=== PATIENT | female | born 1955 | race Caucasian/White ===

== ENCOUNTER 2021-03-03 09:24 | Emergency (ER) | payer MEDICARE, MEDICAID, SELFPAY ==
[2021-03-03 09:45] VITALS: BP 109/63; BP 143/70; PULSE 101; PULSE 102; RESP 17; TEMP 36.4; O2SAT 96; BMI 43.4
[2021-03-03 10:32] LABS: MANUAL DIFF FLAG NO
[2021-03-03 10:34] LABS: Basophils Percent Auto 0.2 % (0-2); Eosinophils Absolute Auto 0.1 X10*3/uL (0.0-0.4); Eosinophils Percent Auto 1.1 % (0-4); Hematocrit 33.5 % (37-47); Hemoglobin 10.1 g/dl (12.0-16.0); Imm Gran Abs Auto 0.01 X10*3/uL (0.00-0.03); Imm Gran Pct Auto 0.2 % (0.0-0.4); Lymphocytes Absolute Auto 0.8 X10*3/uL (1.2-4.9); Lymphocytes Percent Auto 16.3 % (20-40); Mean Corpuscular HGB Conc 30.1 g/dl (31.0-35.0); Mean Corpuscular Hemoglobin 30.8 pg (27.0-33.0); Mean Corpuscular Volume 102.1 fL (80-98); Mean Platelet Volume 8.8 fL (9.4-12.3); Monocytes Absolute Auto 0.3 X10*3/uL (0.1-1.2); Monocytes Percent Auto 7.1 % (2-11); Neutrophils Absolute Auto 3.5 X10*3/uL (2.0-8.3); Neutrophils Percent Auto 75.1 % (45-73); Platelet Count 103 X10*3/uL (160-400); Red Blood Count 3.28 X10*6/uL (4.20-5.50); White Blood Count 4.7 X10*3/uL (4.8-10.8)
[2021-03-03 10:39] LABS: INTERNATIONAL NORM RATIO 1.2 (0.9-1.1); Prothrombin Time 13.7 SEC (10.8-13.0)
[2021-03-03 10:47] LABS: COVID-19 Test Negative (Negative)
[2021-03-03 11:07] LABS: Alanine Aminotransferase < 6 U/L (0-31); Albumin Level 3.8 g/dL (3.5-5.0); Alkaline Phosphatase 53 U/L (39-117); Anion Gap 18 (12-20); Aspartate Amino Transferase 12 U/L (5-31); Bilirubin Total 0.8 mg/dL (0.0-1.0); Blood Urea Nitrogen 47 mg/dL (9-16); Calcium 8.6 mg/dL (8.4-10.2); Carbon Dioxide 28 mmol/L (22-29); Chloride 102 mmol/L (96-108); Creatinine Clr Calc Pharmacy 8.5; Estimated Glomerular Filt Rate 6; Glucose Random 88 mg/dL (60-115); Magnesium 2.5 mg/dL (1.6-2.6); Potassium 6.5 mmol/L (3.3-5.1); Sodium 141 mmol/L (135-145); Total Protein 5.8 g/dL (6.5-8.0)
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
--- NOTE | 2021-03-03 11:19 | ECG_ITS ---
Test Reason : HIGH K Blood Pressure : / mmHG Vent. Rate : 088 BPM Atrial Rate : 088 BPM P-R Int : 202 ms QRS Dur : 110 ms QT Int : 378 ms P-R-T Axes : 057 033 036 degrees QTc Int : 457 ms Normal sinus rhythm Normal ECG No previous ECGs available Referred By: Prachi Marin Electronically Signed By:ROLAN SANDOVAL
[2021-03-03] MEDS: Albuterol Sulfate (0.083%) 2.5 MG/3 ML VIAL.NEB 10 MG INHALE (11:40)
[2021-03-03 11:42] VITALS: PULSE 98; O2SAT 94
[2021-03-03] MEDS: Sodium Polystyrene Sulfon/Sorb 15 GM/60 ML ORAL.SUSP 45 GM PO (11:55)
--- NOTE | 2021-03-03 11:59 | PC.NURSE ---
Elevated potassium and BUN/creatinine. Pt is a Friday, , Friday dialysis patient. Pt cleared from care team with bedside eval. Plan is to send the patient to [facility] from ED to receive her scheduled outpatient treatment. [facility] notified and will book transport from dialysis back to [facility]. Ambulance being booked for patient to dialysis currently. Kayexcelate and albuterol updraft given.
--- NOTE | 2021-03-03 12:41 | PC.NURSE ---
@12:26PM [facility] LEAVES WITH THIS PT TO [facility], [address] [place] [address],LAWANDA VALENTINE,[id number],
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
== END 2021-03-03 12:26 | disposition skilled nursing facility (03) ==
PROVIDERS: Physician Assistant Medical; Emergency Provider Emergency Medicine; PCP Internal Medicine
DX: R45.1 Restlessness and agitation (principal); E87.5 Hyperkalemia; N18.6 End stage renal disease; D63.1 Anemia in chronic kidney disease; I27.20 Pulmonary hypertension, unspecified; I48.91 Unspecified atrial fibrillation; Z99.2 Dependence on renal dialysis; Z20.822 Contact with and (suspected) exposure to COVID-19
CPT/HCPCS: 36415; 80053; 83735; 85025; 85610; 87635; 93005; 94640; 94644; 99283; 99285

== ENCOUNTER 2021-06-05 10:21 | Emergency (ER) | payer MEDICARE, MEDICAID, SELFPAY ==
--- NOTE | ~2021-06-05 | XR_ITS ---
EXAMINATION: XR CHEST CLINICAL INFORMATION: AMS COMPARISON: None TECHNIQUE: AP portable view of the chest was obtained. FINDINGS: There is no evidence of acute parenchymal disease, pneumothorax, or pleural effusion. Heart normal size. No evidence of pulmonary edema. There is scoliosis of the thoracic spine convex right. Vascular stent is seen within the left axilla. Partially imaged region of sclerosis seen involving the left humeral head. XR/XR chest 1V IMPRESSION: No acute disease. Sclerotic lesion within the left humeral head.
--- NOTE | ~2021-06-05 | CT_ITS ---
EXAMINATION: CT HEAD WITHOUT CONTRAST CLINICAL INFORMATION: Increased progression COMPARISON: None TECHNIQUE: Contiguous axial imaging was performed from the skull base to vertex without intravenous administration of contrast. Exam is limited due to motion artifact. This CT examination was performed using dose optimization techniques as appropriate, variously including the following: *Automated exposure control *Adjustment of mA and/or kV according to patient size (this includes techniques or standardized protocols for targeted exams where dose is matched to indication/reason for exam; i.e. extremities or head) *Use of iterative reconstruction technique DLP: 637 mGy-cm FINDINGS: There is no evidence of an extra-axial collection. There is no evidence of intra-axial or extra-axial hemorrhage. There is an old right temporoparietal infarct or area of encephalomalacia. There is ex vacuo dilatation of the right lateral ventricle. The ventricles and extra-axial CSF spaces are otherwise appropriate. There is mild nonspecific periventricular white matter disease. No mass, mass effect or acute infarct is seen. No skull fracture is seen. Visualized paranasal sinuses, mastoid air cells and middle ears are clear. CT/CT head/brain wo con IMPRESSION: Limited exam due to motion. No acute findings. 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
[2021-06-05 10:30] VITALS: BP 158/82; RESP 100; TEMP 37.3; O2SAT 98; BMI 33.0
[2021-06-05 11:26] LABS: MANUAL DIFF FLAG NO
[2021-06-05 11:27] LABS: Basophils Percent Auto 0.5 % (0-2); Eosinophils Absolute Auto 0.1 X10*3/uL (0.0-0.4); Eosinophils Percent Auto 2.9 % (0-4); Hematocrit 29.8 % (37-47); Hemoglobin 9.2 g/dl (12.0-16.0); Imm Gran Abs Auto 0.01 X10*3/uL (0.00-0.03); Imm Gran Pct Auto 0.3 % (0.0-0.4); Lymphocytes Absolute Auto 0.6 X10*3/uL (1.2-4.9); Lymphocytes Percent Auto 16.2 % (20-40); Mean Corpuscular HGB Conc 30.9 g/dl (31.0-35.0); Mean Corpuscular Hemoglobin 30.4 pg (27.0-33.0); Mean Corpuscular Volume 98.3 fL (80-98); Mean Platelet Volume 8.9 fL (9.4-12.3); Monocytes Absolute Auto 0.3 X10*3/uL (0.1-1.2); Monocytes Percent Auto 7.3 % (2-11); Neutrophils Absolute Auto 2.8 X10*3/uL (2.0-8.3); Neutrophils Percent Auto 72.8 % (45-73); Platelet Count 103 X10*3/uL (160-400); Red Blood Count 3.03 X10*6/uL (4.20-5.50); White Blood Count 3.8 X10*3/uL (4.8-10.8)
[2021-06-05 11:42] LABS: COVID-19 Test Negative (Negative)
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
[2021-06-05 11:59] LABS: Alanine Aminotransferase 11 U/L (0-31); Albumin Level 3.8 g/dL (3.5-5.0); Alkaline Phosphatase 54 U/L (39-117); Anion Gap 15 (12-20); Aspartate Amino Transferase 12 U/L (5-31); Bilirubin Direct 0.2 mg/dL (0.0-0.5); Bilirubin Total 0.5 mg/dL (0.0-1.0); Blood Urea Nitrogen 62 mg/dL (9-16); Calcium 8.7 mg/dL (8.4-10.2); Carbon Dioxide 28 mmol/L (22-29); Chloride 106 mmol/L (96-108); Creatinine Clr Calc Pharmacy 7.3; Estimated Glomerular Filt Rate 5; Glucose Random 87 mg/dL (60-115); Magnesium 2.2 mg/dL (1.6-2.6); Sodium 143 mmol/L (135-145); Total Protein 5.8 g/dL (6.5-8.0)
--- NOTE | 2021-06-05 12:11 | ECG_ITS ---
Test Reason : AMS Blood Pressure : / mmHG Vent. Rate : 090 BPM Atrial Rate : 090 BPM P-R Int : 186 ms QRS Dur : 108 ms QT Int : 376 ms P-R-T Axes : 056 020 038 degrees QTc Int : 459 ms Normal sinus rhythm Incomplete right bundle branch block Borderline ECG When compared with ECG of 03-MAR-2021 11:51, No significant change was found Referred By: Kelly Guajardo Electronically Signed By:DA CARDENAS
[2021-06-05 12:24] VITALS: PULSE 101
[2021-06-05] MEDS: Albuterol Sulfate (0.083%) 2.5 MG/3 ML VIAL.NEB 5 MG INHALE (12:24)
[2021-06-05 12:38] LABS: Appearance Urine CLOUDY; Color Urine YELLOW; Glucose Urine UA NEG (NEG); Nitrite Urine POS (NEG); UACC Culture Trigger YES; Urine Blood 1+ (NEG); Urine Ketones NEG (NEG); Urine Protein 2+ MG/DL (NEG-TRACE)
[2021-06-05 12:39] LABS: Leukocyte Esterase Urine 3+ (NEG)
[2021-06-05] MEDS: Sodium Polystyrene Sulfon/Sorb 15 GM/60 ML ORAL.SUSP 45 GM PO (12:50)
[2021-06-05 12:51] LABS: Bacteria Urine 3+ /LPF; Mucus Urine 2+ /LPF; Squamous Epithelial Cell Urine 2+ /LPF; WBC Urine TNTC /HPF (0-4)
[2021-06-05] MEDS: cefTRIAXone sodium 1 GM in 0.9 % Sodium Chloride 50 ML IV (15:18)
--- NOTE | 2021-06-05 16:02 | MHC.CM.ED ---
Received case management from Kelly LUBIN. Patient is from [facility]. Came to ER under a section 12 for AMS. Patient found to have UTI. Patient is due to HD today at [facility] in [place]. Spoke with Monica at [facility]. They will not be able to dialyze until tomorrow 06/06. She would need to arrive at 610am. T/W reached out to [facility] aurea Wild. Torri is going to see if they can arrange transportation for HD for tomorrow. Continue to monitor for d/c needs.
[2021-06-05] MEDS: Sodium Polystyrene Sulfon/Sorb 15 GM/60 ML ORAL.SUSP 30 GM PO (18:45)
--- NOTE | 2021-06-05 19:33 | MHC.CM.ED ---
Addendum entered by Katya Escobar 06/05/21 21:16: Received a confirmation from [facility]. Will transport in am. Original Note: Pt to remain overnight in the ED with d/c via ambulance to [facility] at 5:30am on 06/06. Has appointment for dialysis at 6:10am. Pt aware. [facility] of was unable to arrange transportation from their facility to dialysis, but they will arrange transportation from [facility] to [facility] after dialysis completed. RN aware. Med Nec on chart. CM to follow for d/c needs
[2021-06-05 20:42] VITALS: BP 148/70; PULSE 88; RESP 16; O2SAT 80
[2021-06-05 21:25] VITALS: BP 171/88; PULSE 91; RESP 18; O2SAT 77
[2021-06-05] MEDS: Melatonin 3 MG TABLET 6 MG PO (22:24)
[2021-06-06 01:03] VITALS: BP 141/63; PULSE 78; RESP 12; O2SAT 95
[2021-06-06 05:13] VITALS: BP 152/79; PULSE 96; RESP 15; O2SAT 98
== END 2021-06-06 05:23 | disposition home or self-care (01) ==
PROVIDERS: Physician Assistant; Emergency Provider Emergency Medicine Emergency Medical Services; PCP Internal Medicine
DX: N39.0 Urinary tract infection, site not specified (principal); F03.91 Unspecified dementia, unspecified severity, with behavioral disturbance; E87.5 Hyperkalemia; I10 Essential (primary) hypertension; F33.1 Major depressive disorder, recurrent, moderate; Z20.822 Contact with and (suspected) exposure to COVID-19; Z79.899 Other long term (current) drug therapy
CPT/HCPCS: 36415; 70450; 71045; 80048; 80076; 81001; 83735; 85025; 87086; 87635; 93005; 94640; 96365; 99284; J0696

== ENCOUNTER 2021-08-26 09:37 | Emergency (ER) | payer MEDICARE, MEDICAID, SELFPAY ==
--- NOTE | ~2021-08-26 | XR_ITS ---
EXAMINATION: XR HAND, RIGHT CLINICAL INFORMATION: Right hand pain. COMPARISON: None TECHNIQUE: PA, lateral, and oblique views of the right hand. FINDINGS: There is an acute, mildly displaced oblique fracture of the proximal diaphysis of the fifth metacarpal. The remainder the digits are intact. The carpal bones are normally aligned. The distal radius and ulna are intact. There is mild soft tissue swelling. XR/XR hand RT 2V IMPRESSION: Acute, mildly displaced fracture of the fifth metacarpal with mild soft tissue swelling.
--- NOTE | ~2021-08-26 | XR_ITS ---
EXAMINATION: XR HAND, RIGHT CLINICAL INFORMATION: Post reduction COMPARISON: Previous x-ray from earlier the same day TECHNIQUE: PA, lateral, and oblique views of the right hand. FINDINGS: There is a displaced fracture of the proximal shaft of the fifth metacarpal bone. Alignment does not appear appreciably changed from earlier exam. No other fracture is seen. The joint spaces are normal. There is an overlying splint. XR/XR hand RT 2V IMPRESSION: No change in alignment of the fracture of the proximal shaft of the right fifth metacarpal bone.
[2021-08-26 09:43] VITALS: BP 118/79; PULSE 85
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
[2021-08-26 09:50] VITALS: BP 118/50; PULSE 86; RESP 18; TEMP 36.7; O2SAT 97; BMI 35.4
--- NOTE | 2021-08-26 11:41 | PC.NURSE ---
REPORT GIVEN TO RN AT [facility]. PT WILL BE RETURNING VIA AMBULANCE.
== END 2021-08-26 13:28 | disposition skilled nursing facility (03) ==
PROVIDERS: Emergency Provider Emergency Medicine; PCP Internal Medicine
DX: S62.306A Unspecified fracture of fifth metacarpal bone, right hand, initial encounter for closed fracture (principal); W22.09XA Striking against other stationary object, initial encounter; Y93.89 Activity, other specified; Y92.122 Bedroom in nursing home as the place of occurrence of the external cause; Y99.9 Unspecified external cause status
CPT/HCPCS: 26605; 73120; 99284

== ENCOUNTER 2021-09-12 08:14 | Outpatient (REF) | payer MEDICARE, MEDICAID, SELFPAY ==
--- NOTE | ~2021-09-12 | XR_ITS ---
EXAMINATION: XR HAND, RIGHT CLINICAL INFORMATION: Pain. History fracture. Follow-up. COMPARISON: Right hand radiographs 08/26/2021 x 2 exams. TECHNIQUE: Right hand is imaged in 3 views. FINDINGS: There is motion on the oblique view and mild motion AP view. There is known oblique fracture proximal shaft fifth metacarpal. Distal fracture fragment is displaced laterally by 3/4 cortical bone diameter similar to prior studies. There is no new fracture or dislocation or destructive process. No visible callus formation at this time. Slight negative ulnar variance stable. XR/XR hand RT min 3V IMPRESSION: Fracture proximal shaft fifth metacarpal without significant change in alignment.
== END 2021-09-12 08:15 | disposition home or self-care (01) ==
LOC: HO.HOSX 08:14
PROVIDERS: Visit Provider Physician Assistant
DX: M79.641 Pain in right hand (principal); S62.316A Displaced fracture of base of fifth metacarpal bone, right hand, initial encounter for closed fracture; W22.03XA Walked into furniture, initial encounter; Y93.89 Activity, other specified; Y92.128 Other place in nursing home as the place of occurrence of the external cause; Y99.8 Other external cause status; N18.6 End stage renal disease; I48.91 Unspecified atrial fibrillation; Z99.2 Dependence on renal dialysis; Z79.82 Long term (current) use of aspirin; Z99.81 Dependence on supplemental oxygen
CPT/HCPCS: 73130; 99202

== ENCOUNTER 2021-09-20 06:08 | Day surgery (SDC) | payer MEDICARE, MEDICAID, SELFPAY ==
--- NOTE | 2021-09-19 09:31 | P.CONAN_ITS ---
Documented by User: Karlene Garland NP 09/19/21 09:34 HPI - Anesthesia Eval Consult details Narrative: 65yo F for Right Closed vs Open 5th Metacarpal ORIF ESRD with HD Jelly [facility] resident [facility] Active Problems Active Problems: All Active Problems (Updated 09/12/21 @ 21:05 by Rom Grijalva PA-C) Closed fracture of 5th metacarpal (Acute) Past Medical History Medical History Acute pneumothorax Afib Aggressive behavior Anemia Anemia, chronic renal failure Asthma AV fistula Bipolar 1 disorder Depression Dysphagia End stage chronic kidney disease GERD without esophagitis HTN (hypertension) Hyperlipidemia Hypothyroidism Interstitial pulmonary disease Osteoporosis Pleural effusion Pulmonary hypertension Pyelonephritis Social History Social History Patient Tobacco Use Status: Never used Tobacco Use of substances other than those prescribed or required for medical reasons: No Are you DNR?: No Advance Directives: No Advance Directives Information Provided: Yes Advance Directives Date on File: 06/05/21 Patient : No Meds Allergies Allergy/AdvReac Type Severity Reaction Status Date / Time adhesive tape Allergy Unknown Verified 09/20/21 06:31 Penicillins [PCN] Allergy Unknown Verified 09/20/21 06:31 Sulfa (Sulfonamide Allergy Unknown Verified 09/20/21 06:31 Antibiotics) Home Medications Medication Instructions Recorded Confirmed Last Taken Type aripiprazole 2 mg tablet 1 tab PO DAILY 06/05/21 09/12/21 Unknown History clonazepam 1 mg tablet 1 tab PO BEDTIME PRN 06/05/21 09/12/21 Unknown History gabapentin 100 mg capsule 1 cap PO TID 06/05/21 09/12/21 Unknown History levothyroxine 100 mcg tablet 1 tab PO DAILY 06/05/21 09/12/21 Unknown History quetiapine 100 mg tablet 1 tab PO BEDTIME 06/05/21 09/12/21 Unknown History sevelamer carbonate 800 mg tablet 3 tab PO TID 06/05/21 09/12/21 Unknown History (Renvela) trazodone 50 mg tablet 1 tab PO BEDTIME 06/05/21 09/12/21 Unknown History midodrine 5 mg tablet 5 mg PO 5XD 06/06/21 09/12/21 Unknown History acetaminophen 325 mg capsule 325 mg PO QID PRN 09/12/21 Unknown History aspirin 81 mg tablet,delayed 81 mg PO DAILY 09/12/21 09/19/21 History release bisacodyl 5 mg tablet,delayed 5 mg PO BEDTIME 09/12/21 Unknown History release diclofenac sodium 1 % topical gel 2 g TOPICAL QID 09/12/21 Unknown History guaifenesin 200 mg/5 mL oral liquid 200 mg PO Q4H PRN 09/12/21 Unknown History lidocaine 3.75 % topical cream 1 appl TOPICAL BID 09/12/21 Unknown History lidocaine 5 % topical patch 1 patch TOPICAL DAILY 09/12/21 Unknown History (Lidoderm) naloxone 4 mg/actuation nasal 4 mg INTRANASAL Q3M PRN 09/12/21 Unknown History spray (Narcan) ondansetron HCl 4 mg tablet 4 mg PO Q8H 09/12/21 Unknown History (Zofran) quetiapine 25 mg tablet (Seroquel) 25 mg PO BEDTIME 09/12/21 Unknown History sennosides 8.6 mg capsule (senna) 8.6 mg PO BEDTIME 09/12/21 Unknown History sevelamer carbonate 0.8 gram oral 0.8 g PO TID 09/12/21 Unknown History powder packet (Renvela) Exam Exam Date and Time: September 19, 2021 0931 Pertinent Lab Results Pertinent Lab Results: Laboratory Tests 06/05/21 11:21 WBC 3.8 L Hgb 9.2 L Hct 29.8 L Plt Count 103 L Narrative Narrative: EKG 05/2021 Vent. Rate : 090 BPM ? ? Atrial Rate : 090 BPM ?? P-R Int : 186 ms? QRS Dur : 108 ms ? ? QT Int : 376 ms ? ? ? P-R-T Axes : 056 020 038 degrees ?? QTc Int : 459 ms ? Normal sinus rhythm Incomplete right bundle branch block Borderline ECG When compared with ECG of 03-MAR-2021 11:51, No significant change was found Assessment and Plan Assessment Anesthesia Assessment: Chart Reviewed Documented by User: Jodi Hinton MD 09/20/21 07:32 [facility] Past Medical History Medical History Acute pneumothorax Afib Aggressive behavior Anemia Anemia, chronic renal failure Asthma AV fistula Bipolar 1 disorder Depression Dysphagia End stage chronic kidney disease GERD without esophagitis HTN (hypertension) Hyperlipidemia Hypothyroidism Interstitial pulmonary disease Osteoporosis Pleural effusion Pulmonary hypertension Pyelonephritis Functional capacity: independent ambulation Patient : No Family History Family history of problems with anesthesia: No Surgical History History of Problems with Anesthesia: No Social History Social History Patient Tobacco Use Status: Never used Tobacco Use of substances other than those prescribed or required for medical reasons: No Are you DNR?: No Advance Directives: No Advance Directives Information Provided: Yes Advance Directives Date on File: 06/05/21 Patient : No Meds Allergies Allergy/AdvReac Type Severity Reaction Status Date / Time adhesive tape Allergy Unknown Verified 09/20/21 06:31 Penicillins [PCN] Allergy Unknown Verified 09/20/21 06:31 Sulfa (Sulfonamide Allergy Unknown Verified 09/20/21 06:31 Antibiotics) Home Medications Medication Instructions Recorded Confirmed Last Taken Type aripiprazole 2 mg tablet 1 tab PO DAILY 06/05/21 09/12/21 Unknown History clonazepam 1 mg tablet 1 tab PO BEDTIME PRN 06/05/21 09/12/21 Unknown History gabapentin 100 mg capsule 1 cap PO TID 06/05/21 09/12/21 Unknown History levothyroxine 100 mcg tablet 1 tab PO DAILY 06/05/21 09/12/21 Unknown History quetiapine 100 mg tablet 1 tab PO BEDTIME 06/05/21 09/12/21 Unknown History sevelamer carbonate 800 mg tablet 3 tab PO TID 06/05/21 09/12/21 Unknown History (Renvela) trazodone 50 mg tablet 1 tab PO BEDTIME 06/05/21 09/12/21 Unknown History midodrine 5 mg tablet 5 mg PO 5XD 06/06/21 09/12/21 Unknown History acetaminophen 325 mg capsule 325 mg PO QID PRN 09/12/21 Unknown History aspirin 81 mg tablet,delayed 81 mg PO DAILY 09/12/21 09/19/21 History release bisacodyl 5 mg tablet,delayed 5 mg PO BEDTIME 09/12/21 Unknown History release diclofenac sodium 1 % topical gel 2 g TOPICAL QID 09/12/21 Unknown History guaifenesin 200 mg/5 mL oral liquid 200 mg PO Q4H PRN 09/12/21 Unknown History lidocaine 3.75 % topical cream 1 appl TOPICAL BID 09/12/21 Unknown History lidocaine 5 % topical patch 1 patch TOPICAL DAILY 09/12/21 Unknown History (Lidoderm) naloxone 4 mg/actuation nasal 4 mg INTRANASAL Q3M PRN 09/12/21 Unknown History spray (Narcan) ondansetron HCl 4 mg tablet 4 mg PO Q8H 09/12/21 Unknown History (Zofran) quetiapine 25 mg tablet (Seroquel) 25 mg PO BEDTIME 09/12/21 Unknown History sennosides 8.6 mg capsule (senna) 8.6 mg PO BEDTIME 09/12/21 Unknown History sevelamer carbonate 0.8 gram oral 0.8 g PO TID 09/12/21 Unknown History powder packet (Renvela) Exam Airway Mallampati Class: III TM Dist: >3cm Neck ROM: Full Loose/Missing/Broken Teeth: Yes, Upper and Lower Heart: RRR Lungs: CTA Assessment and Plan Final Anesthetic Review Family History of Problems with Anesthesia: No History of Problems with Anesthesia: No ASA Class: III Final Preanesthetic Review: No Changes in Pt Med Stat, Meds/Allgs Chart Reviewed, Consent Obtained/Reviewed and Anes Risks/Benef Reviewed Patient Risk: Intermediate Procedure Risk: Low Anesthetic Plan Anesthetic Plan: GA Disposition: Standard PACU
--- NOTE | ~2021-09-20 | FL_ITS ---
EXAMINATION: XR FLUOROSCOPY WITH IMAGES CLINICAL INFORMATION: Fracture proximal shaft fifth metacarpal COMPARISON: Radiographs right hand 09/12/2021, 08/26/2021 TECHNIQUE: Fluoroscopy performed by Dr. Johnna Card. Fluoroscopy time: 35 seconds DAP: [id number] Images: 5 FINDINGS: The proximal fifth metacarpal shaft fracture is reduced with single metallic pin through long axis. Hardware intact. Mild lateral displacement distal fragment similar to prior imaging. FL/FL guidance in OR IMPRESSION: Status post reduction fifth metacarpal fracture. Hardware intact.
[2021-09-20 06:47] VITALS: BP 109/73; PULSE 87; RESP 20; TEMP 36.8; O2SAT 100; BMI 33.4
[2021-09-20 06:51] LABS: Anion Gap 16 (12-20); Carbon Dioxide 29 mmol/L (22-29); Chloride 103 mmol/L (96-108); Potassium 5.4 mmol/L (3.3-5.1); Sodium 143 mmol/L (135-145)
--- NOTE | 2021-09-20 07:55 | MHC.SHP ---
Pre-Procedural Eval Section A Date of Service: 09/20/21 The patient is an INPATIENT: No Changes since office visit: No Cold of Flu in the past 2 weeks, No New Medical Problems, No Changes in Medication and No Patient answered all questions The History & Physical has been completed within 30 days and I have reviewed it.: Yes Section B Chief Complaint: fx of metacarpal bone Allergies: Allergies Allergy/AdvReac Type Severity Reaction Status Date / Time adhesive tape Allergy Unknown Verified 09/20/21 06:31 Penicillins [PCN] Allergy Unknown Verified 09/20/21 06:31 Sulfa (Sulfonamide Allergy Unknown Verified 09/20/21 06:31 Antibiotics) Plan I have reviewed the history and physical and performed a pertinent physical examination on my patient. No changes have occurred unless specified.
--- NOTE | 2021-09-20 07:56 | P.OP_ITS ---
Operative Note Operative Note Date of Service: 09/20/21 Narrative: Operative Note Narrative: Preop diagnosis: 1. Right 5th Metacarpal shaft fracture Postop diagnosis: Same Procedure: 1. right 5th Metacarpal fracture closed reduction percutaneous pinning 2. Ulnar nerve block Surgeon: Johnna Card MD Anesthesia: General Findings: Metacarpal fracture Implants: 0.062 K-wires times 1 Tourniquet time: None EBL: Minimal Specimen: None Drains: None Complications: None Disposition: Brought to the recovery room in stable condition Plan: Follow-up in 10-14 days for a wound check, postop radiographs and for placement in a short-arm cast or splint Anticipate K-wire removal in 4 weeks based on interval bony healing Educate the patient that full fracture healing anticipated in approximately 8-12 weeks. Indications: The patient is 65 years old with a right 5th proximal metacarpal shaft fracture that is now about 3 weeks post injury . The risks and benefits of operative treatment, including but not limited to risk of damage to blood vessels, nerves, tendons, infection, recurrence, delayed or nonunion of fracture, persistent pain or numbness, incomplete resolution of preoperative symptoms, or need for further surgery were discussed with the patient and they wished to proceed with surgery. Procedure: Once consent was obtained patient was brought back to the operating suite and placed in the operating table in a supine position. . Perioperative antibiotics and general anesthesia was administered by the anesthesia team. A tourniquet was applied to the proximal aspect of the right upper extremity and the limb was prepped and draped in a standard surgical fashion. Tourniquet was not inflated during the case. an ulnar nerve block was performed at the beginning of the case to help facilitate pain control during the procedure and less in the need for her anesthesia medications. This was done by infiltrating about the ulnar nerve at the wrist with some 1% lidocaine a with epinephrine. The FluoroScan was used during the case to assist with our fracture reduction and placement of all implants. A closed reduction was performed on the patient's Right 5th metacarpal shaft fracture. I placed a single 0.062 K- wire retrograde through the head of the left 5th metacarpal extending proximally across the fracture site to the base of the metacarpal. . Fracture alignment was assessed for both angular and rotational malalignment. Once satisfied with our fracture reduction and implant placement, the K-wires were bent and cut short and pin caps applied. Final fluoroscopic images were then obtained. The wounds were copiously irrigated with normal saline. . A Sterile dressing and short volar splint was applied. The patient appears to have tolerated the procedure well and with no complications. All digits were well vascularized at the conclusion of the case.
--- NOTE | 2021-09-20 07:56 | PC.NURSE ---
Patient brought to [facility] in wheelchair by facility. Patient not on O2 and found to be 88%, placed on 2 L nc, facility notified & questioned on code status, height & weight, and allergy reactions. Reactions unknown per facility. Patient also stated I got COVID tested yesterday unable to state why, enies cough, congestion any other symptoms. Facility called again to get COVID results & reason for testing, facility not sure how to get the results and states the residents get tested every 3 days because staff had been positive so it policy now. Per Leroy, since patient asymptomatic can proceed without swab DOS. Consents obtained by telephone, HCP Julisa May d/t patient not being oriented.
[2021-09-20 09:05] VITALS: BP 135/68; PULSE 85; RESP 16; TEMP 36.9; O2SAT 95
[2021-09-20 09:10] VITALS: BP 128/59; PULSE 86; RESP 16; O2SAT 97
[2021-09-20 09:15] VITALS: BP 132/75; PULSE 86; RESP 18; TEMP 36.5; O2SAT 97
[2021-09-20 09:30] VITALS: BP 115/41; PULSE 86; RESP 16; TEMP 36.4; O2SAT 98
[2021-09-20 09:43] VITALS: BP 126/61; PULSE 75; RESP 16; TEMP 36.4; O2SAT 99
--- NOTE | 2021-09-20 13:27 | HO.POSTANES ---
Post Anesthesia Evaluation Post Anesthesia Evaluation Vital Signs: Vital Signs Temp Pulse Resp BP Pulse Ox 09/20/21 09:43 97.6 F 75 16 126/61 99 09/20/21 09:30 97.6 F 86 16 115/41 L 98 09/20/21 09:15 97.7 F 86 18 132/75 97 09/20/21 09:10 86 16 128/59 L 97 09/20/21 09:05 98.5 F 85 16 135/68 95 09/20/21 06:47 98.3 F 87 20 109/73 100 Anesthesia: General LMA Mental Status: Awake Pain Control: Satisfactory Nausea/Vomiting: None Hydration: Adequate Anesthesia-Related Issues: No Anes. Related Issues
== END 2021-09-20 10:00 | disposition home or self-care (01) ==
PROVIDERS: Nurse Practitioner; PCP Internal Medicine; Visit Provider Orthopaedic Surgery
PROC: (CPT 26615; principal; 2021-09-20 07:30)
DX: S62.326A Displaced fracture of shaft of fifth metacarpal bone, right hand, initial encounter for closed fracture (principal); M79.641 Pain in right hand; W22.8XXA Striking against or struck by other objects, initial encounter; Y93.89 Activity, other specified; Y92.9 Unspecified place or not applicable; Y99.8 Other external cause status; I48.91 Unspecified atrial fibrillation; F91.8 Other conduct disorders; R25.1 Tremor, unspecified; I12.0 Hypertensive chronic kidney disease with stage 5 chronic kidney disease or end stage renal disease; N18.6 End stage renal disease; D63.1 Anemia in chronic kidney disease; Z99.2 Dependence on renal dialysis; Z99.81 Dependence on supplemental oxygen; Z79.82 Long term (current) use of aspirin; Z79.899 Other long term (current) drug therapy
CPT/HCPCS: 26608; 36415; 80051; J0690; J2405; J3010

== ENCOUNTER 2021-10-03 08:32 | Outpatient (REF) | payer MEDICARE, MEDICAID, SELFPAY | END 2021-10-03 08:33 | disposition home or self-care (01) | LOC: HO.HOSX 08:32 | PROVIDERS: Visit Provider Orthopaedic Surgery | DX: Z13.89 Encounter for screening for other disorder (principal) ==

== ENCOUNTER 2021-10-07 17:18 | Emergency (ER) | payer MEDICARE, MEDICAID, SELFPAY ==
--- NOTE | ~2021-10-07 | CT_ITS ---
EXAMINATION: CT HEAD WITHOUT CONTRAST CLINICAL INFORMATION: Dysarthria. Question CVA COMPARISON: 06/05/2021 TECHNIQUE: Contiguous axial imaging was performed from the skull base to vertex without intravenous administration of contrast. This CT examination was performed using dose optimization techniques as appropriate, variously including the following: *Automated exposure control *Adjustment of mA and/or kV according to patient size (this includes techniques or standardized protocols for targeted exams where dose is matched to indication/reason for exam; i.e. extremities or head) *Use of iterative reconstruction technique DLP: 647 mGy-cm FINDINGS: Chronic right temporoparietal encephalomalacia again seen. Patchy periventricular and subcortical white matter hypodensity is similar to the prior study as well. No new loss of quiros-white differentiation. No acute intracranial hemorrhage. No mass effect or midline shift. The ventricles and sulci are similar in configuration to the prior study with persistent ex vacuo dilation of the right lateral ventricle. No skull fracture. No acute sinusitis. Globes and orbits are normal. CT/CT head/brain wo con IMPRESSION: No acute intracranial pathology. No significant change from prior study. MRI would be more sensitive to identify findings of subtle acute ischemia along the margins of the encephalomalacia.
[2021-10-07 17:30] VITALS: BP 116/71; BP 136/76; PULSE 84; PULSE 90; RESP 17; TEMP 36.8; O2SAT 97; O2SAT 99; BMI 26.8
--- NOTE | 2021-10-07 17:33 | ECG_ITS ---
Test Reason : chest pain Blood Pressure : / mmHG Vent. Rate : 078 BPM Atrial Rate : 078 BPM P-R Int : 234 ms QRS Dur : 114 ms QT Int : 418 ms P-R-T Axes : 064 041 048 degrees QTc Int : 476 ms Sinus rhythm with 1st degree A-V block Right bundle branch block Abnormal ECG When compared with ECG of 05-JUN-2021 16:12, [place] interval has increased Right bundle branch block has replaced Incomplete right bundle branch block Referred By: Philip Arriaga Electronically Signed By:KIMBERLEY PIERRE MD
--- NOTE | 2021-10-07 17:38 | ED_ITS ---
HPI - Altered Mental Status General Chief Complaint: Altered Mental Status Stated Complaint: altered mental Time Seen by Provider: 10/07/21 17:33 Source: EMS Mode of arrival: EMS History of Present Illness HPI narrative: Patient is 65 years old with history of end-stage renal disease on hemodialysis multifocal pneumonia just discharged from [facility] when EMS reached at [facility] did notice patient is altered sensorium confused with slurred speech prior to that when they picked up the patient, patient was alert orientedx 4 when they reach and will [facility] patient was confused and slow in talking no focal neurological deficit noticed no dysarthria has slow speech , brought the patient to the ER for further evaluation Related Data Home Medications Medication Instructions Recorded Confirmed aripiprazole 2 mg tablet 1 tab PO DAILY 06/05/21 09/12/21 clonazepam 1 mg tablet 1 tab PO BEDTIME PRN 06/05/21 09/12/21 gabapentin 100 mg capsule 1 cap PO TID 06/05/21 09/12/21 levothyroxine 100 mcg tablet 1 tab PO DAILY 06/05/21 09/12/21 quetiapine 100 mg tablet 1 tab PO BEDTIME 06/05/21 09/12/21 sevelamer carbonate 800 mg tablet 3 tab PO TID 06/05/21 09/12/21 (Renvela) trazodone 50 mg tablet 1 tab PO BEDTIME 06/05/21 09/12/21 midodrine 5 mg tablet 5 mg PO 5XD 06/06/21 09/12/21 acetaminophen 325 mg capsule 325 mg PO QID PRN 09/12/21 aspirin 81 mg tablet,delayed 81 mg PO DAILY 09/12/21 release bisacodyl 5 mg tablet,delayed 5 mg PO BEDTIME 09/12/21 release diclofenac sodium 1 % topical gel 2 g TOPICAL QID 09/12/21 guaifenesin 200 mg/5 mL oral liquid 200 mg PO Q4H PRN 09/12/21 lidocaine 3.75 % topical cream 1 appl TOPICAL BID 09/12/21 lidocaine 5 % topical patch 1 patch TOPICAL DAILY 09/12/21 (Lidoderm) naloxone 4 mg/actuation nasal 4 mg INTRANASAL Q3M PRN 09/12/21 spray (Narcan) ondansetron HCl 4 mg tablet 4 mg PO Q8H 09/12/21 (Zofran) quetiapine 25 mg tablet (Seroquel) 25 mg PO BEDTIME 09/12/21 sennosides 8.6 mg capsule (senna) 8.6 mg PO BEDTIME 09/12/21 sevelamer carbonate 0.8 gram oral 0.8 g PO TID 09/12/21 powder packet (Renvela) Previous Rx's Medication Instructions Recorded hydrocodone 5 mg-acetaminophen 325 1 - 2 tab PO Q6H PRN #15 tab 09/20/21 mg tablet Allergies Allergy/AdvReac Type Severity Reaction Status Date / Time adhesive tape Allergy Unknown Verified 09/20/21 06:31 Penicillins [PCN] Allergy Unknown Verified 09/20/21 06:31 Sulfa (Sulfonamide Allergy Unknown Verified 09/20/21 06:31 Antibiotics) Review of Systems Review of Systems: Yes all other systems are reviewed and are negative [facility] Past Medical History Medical History Acute pneumothorax Afib Aggressive behavior Anemia Anemia, chronic renal failure Asthma AV fistula Bipolar 1 disorder Depression Dysphagia End stage chronic kidney disease GERD without esophagitis HTN (hypertension) Hyperlipidemia Hypothyroidism Interstitial pulmonary disease Osteoporosis Pleural effusion Pulmonary hypertension Pyelonephritis Social History Social History Alcohol intake: never Patient Tobacco Use Status: Never used Tobacco Use of substances other than those prescribed or required for medical reasons: No Advance Directives: Yes Advance Directives on File: Yes Advance Directives Date on File: 06/05/21 Physical Exam Vital Signs: Vital Signs: Last Vital Signs Temp 98.0 F 10/07/21 18:05 Pulse 77 10/07/21 19:08 Resp 15 10/07/21 19:08 BP 110/65 10/07/21 19:08 Pulse Ox 100 10/07/21 19:08 Oxygen Flow Rate 2 10/07/21 17:30 BMI result Body Mass Index 26.8 Appearance: Alert. Oriented X2 No acute distress. Eyes: PERRL no pallor or icterus ENT: Pharynx normal. Oral Mucosa moist Neck: Normal inspection. Neck supple. CVS: Normal heart rate and rhythm. Pulses normal. Respiratory: No respiratory distress. Equal air entry bilateral, no wheezing/rales/rhonchi Abdomen: Soft and nontender. Bowel sounds are present, no mass palpable, no CVA tenderness Skin: Skin warm and dry. Normal skin color. Normal skin turgor. Extremities: No lower extremity edema. No calf tenderness Neuro: Oriented X 2. No motor deficit. No sensory deficit.No cerebellar signs , cranial nerves II-XII intact patient is slow to speak alert and awake MDM - Altered Mental Status MDM Narrative Medical decision making narrative: Head CT is negative for any acute stroke patient is baseline communicating well her symptoms seems to be from anxiety she is on Klonopin EKG without any acute ischemic changes stable troponin will send the patient back to [facility] her previous troponin at [facility] was 18 which is chronically elevated Medical Records Attestation: I reviewed the patient's medical records. Lab Data Attestation: I reviewed the patient's lab results. Labs: Lab Results 10/07/21 Range/Units 18:02 Troponin I High Sens 26.8 H (<3.5-17.0) ng/L ECG Data ECG #1: Attestation: I personally reviewed and interpreted this ECG as follows: Interpretation: Normal sinus rhythm heart rate 78 beats per minute right bundle-branch block no acute ST-T changes no acute ischemia Discharge Plan Discharge Clinical Impression: Anxiety Chest pain Qualifiers: Chest pain type: precordial pain Qualified Code(s): R07.2 - Precordial pain Patient Disposition: Home, Self-Care Instructions: Chest Pain (ED), Anxiety (ED) Additional Instructions: Continue medication as prescribed at the time of discharge from [facility] today Your CT scan is negative for acute stroke your cardiogram and cardiac enzymes are negative for acute heart attack Prescriptions: No Action trazodone 50 mg tablet 1 tab PO BEDTIME RF: 0 clonazepam 1 mg tablet 1 tab PO BEDTIME PRN (Reason: Sleep) RF: 0 quetiapine 100 mg tablet 1 tab PO BEDTIME RF: 0 levothyroxine 100 mcg tablet 1 tab PO DAILY RF: 0 gabapentin 100 mg capsule 1 cap PO TID RF: 0 aripiprazole 2 mg tablet 1 tab PO DAILY RF: 0 sevelamer carbonate [Renvela] 800 mg tablet 3 tab PO TID RF: 0 midodrine 5 mg tablet 5 mg PO 5XD RF: 0 hydrocodone-acetaminophen 5-325 mg tablet 1 - 2 tab PO Q6H PRN (Reason: pain) Qty: 15 RF: 0 acetaminophen 325 mg capsule 325 mg PO QID PRNRF: 0 aspirin 81 mg tablet,delayed release (DR/EC) 81 mg PO DAILY RF: 0 bisacodyl 5 mg tablet,delayed release (DR/EC) 5 mg PO BEDTIME RF: 0 guaifenesin 200 mg/5 mL liquid 200 mg PO Q4H PRNRF: 0 lidocaine 3.75 % cream 1 appl topical BID RF: 0 lidocaine [Lidoderm] 5 % adhesive patch,medicated 1 patch topical DAILY RF: 0 Narcan 4 mg/actuation spray,non-aerosol 4 mg intranasal Q3M PRNRF: 0 sevelamer carbonate [Renvela] 0.8 gram powder in packet 0.8 g PO TID RF: 0 senna 8.6 mg capsule 8.6 mg PO BEDTIME RF: 0 quetiapine [Seroquel] 25 mg tablet 25 mg PO BEDTIME RF: 0 ondansetron HCl [Zofran] 4 mg tablet 4 mg PO Q8H RF: 0 diclofenac sodium 1 % gel 2 g topical QID RF: 0 Interventions: ED Discharge Assessment Last Done: 10/07/21 20:02 Discharge Date/Time: 10/07/21 20:03
[2021-10-07 18:05] VITALS: BP 123/69; PULSE 81; RESP 20; TEMP 36.7; O2SAT 99
[2021-10-07 18:27] LABS: Troponin-I High Sensitivity 26.8 ng/L (<3.5-17.0)
[2021-10-07 19:08] VITALS: BP 110/65; PULSE 77; RESP 15; O2SAT 100
--- NOTE | 2021-10-07 19:09 | PC.NURSE ---
pt [id number] resting on stretcher in nad, breathing with ease on ra. pt without focal deficits. no facial droop or unilateral weakness. dr rahman to bedside, informs this rn pt to be dc to [facility] as per initial plan. stretcher in low locked position, rails raised, call zaragoza within reach.
--- NOTE | 2021-10-07 19:17 | PC.NURSE ---
This RN attempting to call nurse to nurse report to nurse at [facility] Nurse Singer notified that pt is being dc'd from this facility and transported by ambulance to [facility]. Nurse states she hasn't even been there for 3 hours and the baby nurse didn't feel she was stable to stay here, so I don't understand why she's coming back. This RN asks Dr Ervin to speak with nurse at [facility]. Dr Ervin explains dx of anxiety without signs of stroke. Nurse accepts. Pt awaiting transport to [facility].
--- NOTE | 2021-10-07 19:52 | PC.NURSE ---
Report given to EMS for transport back to facility
== END 2021-10-07 20:03 | disposition home or self-care (01) ==
PROVIDERS: Emergency Provider Internal Medicine; PCP Internal Medicine Nephrology
DX: R07.2 Precordial pain (principal); R47.1 Dysarthria and anarthria; F41.1 Generalized anxiety disorder; F43.0 Acute stress reaction; Z79.899 Other long term (current) drug therapy
CPT/HCPCS: 36415; 70450; 84484; 93005; 99284

== ENCOUNTER 2021-10-24 08:23 | Outpatient (REF) | payer MEDICARE, MEDICAID, SELFPAY ==
--- NOTE | ~2021-10-24 | XR_ITS ---
EXAMINATION: XR HAND, RIGHT CLINICAL INFORMATION: Pain COMPARISON: 09/20/2021 and 09/12/2021 TECHNIQUE: PA, lateral, and oblique views of the right hand. XR/XR hand RT min 3V FINDINGS/IMPRESSION: Maci wire within the fifth metacarpal. Stable alignment of the healing fracture of the fifth metacarpal proximal metaphysis with endosteal bridging and mild periosteal callus formation.
== END 2021-10-24 08:24 | disposition home or self-care (01) ==
LOC: HO.HOSX 08:23
PROVIDERS: Visit Provider Orthopaedic Surgery
DX: S62.300D Unspecified fracture of second metacarpal bone, right hand, subsequent encounter for fracture with routine healing (principal)
CPT/HCPCS: 73130; 99212

== ENCOUNTER 2021-11-07 08:28 | Outpatient (REF) | payer MEDICARE, MEDICAID, SELFPAY ==
--- NOTE | ~2021-11-07 | XR_ITS ---
EXAMINATION: XR hand RT min 3V CLINICAL INFORMATION: Pain COMPARISON: Hand radiograph 10/24/2021 TECHNIQUE: 3 views of the hand XR/XR hand RT min 3V FINDINGS/IMPRESSION: Interval removal of the fixation pin in the fifth metacarpal. Redemonstration of obliquely oriented displaced fracture of the base of the fifth metacarpal carpal with progression of bony callus formation. The fracture line remains visible. Joint spaces are maintained. No cortical erosion. Soft tissues are unremarkable.
== END 2021-11-07 08:29 | disposition home or self-care (01) ==
LOC: HO.HOSX 08:28
PROVIDERS: Visit Provider Orthopaedic Surgery
DX: S62.308D Unspecified fracture of other metacarpal bone, subsequent encounter for fracture with routine healing (principal)
CPT/HCPCS: 73130; 99212

== ENCOUNTER 2022-02-02 09:01 | Emergency (ER) | payer MEDICARE, MEDICAID, SELFPAY ==
--- NOTE | ~2022-02-02 | CT_ITS ---
EXAMINATION: CT HEAD WITHOUT CONTRAST CLINICAL INFORMATION: Headache. COMPARISON: CT of the head done on 10/07/2021. TECHNIQUE: Contiguous axial imaging was performed from the skull base to vertex without intravenous administration of contrast. This CT examination was performed using dose optimization techniques as appropriate, variously including the following: *Automated exposure control *Adjustment of mA and/or kV according to patient size (this includes techniques or standardized protocols for targeted exams where dose is matched to indication/reason for exam; i.e. extremities or head) *Use of iterative reconstruction technique DLP: 635.7 mGy-cm FINDINGS: Technically limited study due to motion related artifacts (patient apparently has tremor and could not stay still at the time of the examination). There is no evidence of acute intracranial hemorrhage or territorial infarction. No abnormal mass effect or midline shift is seen. Haney to white matter differentiation is well preserved. No extra-axial fluid collections are identified. The ventricles are normal in size. Encephalomalacia involving right temporoparietal lobe appear unchanged since 10/07/2021. Persistent stable bilateral deep periventricular white matter hypodensities are noted, unchanged. The osseous structures and soft tissues are normal. The mastoid air cells and visualized portions of the paranasal sinuses are well aerated. CT/CT head/brain wo con IMPRESSION: Technically limited study due to motion related artifacts. No acute intracranial pathology. No significant change since 10/07/2021.
[2022-02-02 09:11] VITALS: BP 123/55; BP 135/76; PULSE 80; PULSE 93; RESP 16; TEMP 36.7; O2SAT 100; O2SAT 98; BMI 29.2
--- NOTE | 2022-02-02 09:18 | ED.HA ---
HPI - Headache General Chief Complaint: Headache Stated Complaint: SI,WRAPPED O2 TUBING AROUND NECK FROM SNF Time Seen by Provider: 02/02/22 09:05 Source: patient Mode of arrival: EMS Limitations: no limitations History of Present Illness HPI Narrative: 66-year-old female who presents emergency department for evaluation of headache and suicide gesture. The patient lives in a long-term care facility. She states she has been having headaches for weeks. She states that the headache is intermittent and located at the top of her head and the back of her head. She describes the headache as a ?hurting pain ?that is 10/10 at its worst. She states that she gets Tylenol and this does give her some relief of pain but the headache keeps coming back. She states that this morning she had a headache and she asked to be transferred to the hospital for evaluation of her headaches. She states she was told that they do not sent people to the emergency department for headaches and this made the patient upset. She told me that she then wrapped the oxygen cord around her neck because she ?wanted to end my life ?. When I asked her if she was currently suicidal she states that she does not want to because she is going to get a kidney transplant. The patient does have end-stage renal disease and is dialyzed on Tuesdays and Saturdays, she was not dialyzed yet today. She states that her headache is currently 10/10 and she is worried about her headaches. She told me that she does not feel unsafe here in the emergency department and she states that she does not believe that she would hurt herself if she went back to her long-term care facility. She denied fever or chills. She states she has had some slight rhinorrhea over the past 2 days. She denied sore throat, cough, chest pain, nausea, vomiting, diarrhea or weakness. She states she does feel short of breath but she states that this is not new for her. Related Data Home Medications Medication Instructions Recorded Confirmed aripiprazole 2 mg tablet 1 tab PO DAILY 06/05/21 09/12/21 clonazepam 1 mg tablet 1 tab PO BEDTIME PRN 06/05/21 09/12/21 gabapentin 100 mg capsule 1 cap PO TID 06/05/21 09/12/21 levothyroxine 100 mcg tablet 1 tab PO DAILY 06/05/21 09/12/21 quetiapine 100 mg tablet 1 tab PO BEDTIME 06/05/21 09/12/21 sevelamer carbonate 800 mg tablet 3 tab PO TID 06/05/21 09/12/21 (Renvela) trazodone 50 mg tablet 1 tab PO BEDTIME 06/05/21 09/12/21 midodrine 5 mg tablet 5 mg PO 5XD 06/06/21 09/12/21 acetaminophen 325 mg capsule 325 mg PO QID PRN 09/12/21 aspirin 81 mg tablet,delayed 81 mg PO DAILY 09/12/21 release bisacodyl 5 mg tablet,delayed 5 mg PO BEDTIME 09/12/21 release diclofenac sodium 1 % topical gel 2 g TOPICAL QID 09/12/21 guaifenesin 200 mg/5 mL oral liquid 200 mg PO Q4H PRN 09/12/21 lidocaine 3.75 % topical cream 1 appl TOPICAL BID 09/12/21 lidocaine 5 % topical patch 1 patch TOPICAL DAILY 09/12/21 (Lidoderm) naloxone 4 mg/actuation nasal 4 mg INTRANASAL Q3M PRN 09/12/21 spray (Narcan) ondansetron HCl 4 mg tablet 4 mg PO Q8H 09/12/21 (Zofran) quetiapine 25 mg tablet (Seroquel) 25 mg PO BEDTIME 09/12/21 sennosides 8.6 mg capsule (senna) 8.6 mg PO BEDTIME 09/12/21 sevelamer carbonate 0.8 gram oral 0.8 g PO TID 09/12/21 powder packet (Renvela) Previous Rx's Medication Instructions Recorded hydrocodone 5 mg-acetaminophen 325 1 - 2 tab PO Q6H PRN #15 tab 09/20/21 mg tablet Allergies Allergy/AdvReac Type Severity Reaction Status Date / Time adhesive tape Allergy Unknown Verified 02/02/22 09:11 Penicillins [PCN] Allergy Unknown Verified 09/20/21 06:31 Sulfa (Sulfonamide Allergy Unknown Verified 09/20/21 06:31 Antibiotics) Review of Systems Review of Systems: Yes all other systems are reviewed and are negative [facility] Past Medical History [facility] Narrative: Social history: She is currently at a long-term care facility. She denies tobacco, alcohol and drug use. Medical History Acute pneumothorax Afib Aggressive behavior Anemia Anemia, chronic renal failure Asthma AV fistula Bipolar 1 disorder Depression Dysphagia End stage chronic kidney disease GERD without esophagitis HTN (hypertension) Hyperlipidemia Hypothyroidism Interstitial pulmonary disease Osteoporosis Pleural effusion Pulmonary hypertension Pyelonephritis Social History Social History Alcohol intake: never Patient Tobacco Use Status: Never used Tobacco Advance Directives: Yes Advance Directives on File: Yes Advance Directives Date on File: 06/05/21 Physical Exam Vital Signs: Vital Signs: Last Vital Signs Temp 98.1 F 02/02/22 09:11 Pulse 93 02/02/22 09:11 Resp 16 02/02/22 09:11 BP 135/76 02/02/22 09:11 Pulse Ox 98 02/02/22 09:11 Oxygen Flow Rate 3 02/02/22 09:11 BMI result Body Mass Index 29.2 Const: General: cooperative and no acute distress Orientation/consciousness: oriented to person and oriented to place Limitations: no limitations HEENT: Head: Yes normal to inspection, Yes normocephalic and Yes atraumatic Ears: external ears normal General nose exam: Normal external nose present Face and sinus: Yes normal facial exam Mouth: Normal oral and palatal mucosa present Throat: Yes posterior oropharynx normal Eyes: Alignment and Position: alignment abnormal (The right eye has a slight lateral position compared to the left) Periorbital: periorbital findings normal Eyelids: Yes eyelids normal Conjunctivae: conjunctivae normal Sclerae: sclerae normal Pupils: Equal, round and reactive pupils present EOM: EOMs intact bilaterally Neck: Neck: Yes normal visual inspection, Yes no lymphadenopathy, Yes trachea midline and Yes supple Chest: Chest palpation & inspection: normal inspection of the chest and normal palpation of entire chest wall Resp: Effort & Inspection: normal respiratory effort and able to speak in complete sentences Auscultation: clear to auscultation bilaterally Cardio: Rate: regular rate Rhythm: regular rhythm Heart sounds: S1 normal heart sound present, S2 normal heart sound present and no murmurs GI: Inspection: Yes normal to inspection Palpation (GI): Soft to palpation, nontender and no guarding Auscultation: normal bowel sounds : General: Yes no CVA tenderness Back/Spine/Pelvis: Back: no CVA tenderness Skin: General skin exam: no rashes or lesions noted Neuro: General: oriented to person and oriented to place Cranial nerves: Yes CN's II-XII intact bilaterally and Yes Equal, round and reactive pupils present Cognition (Neuro): normal cognition Motor exam (neuro): 5/5 motor strength present throughout Extrem: General: Yes normal to inspection Psych: Appearance: grossly normal Speech and movement: Normal speech and movement present Affect: normal affect Attitude: cooperative Thought process: Normal thought process present Thought content: Normal thought content present, suicidality and no homicidality Course Course Course Narrative: 66-year-old female who was sent to emergency department for evaluation of his suicide gesture (she wrapped her O2 saturation to around her neck and stated that she wanted to end her life). The patient states that she did this because she wanted to come to the hospital to be evaluated for headache and the staff refused center. Here in the emergency department she denies being suicidal or homicidal and states she feels safe. She is complaining of a headache on the top of her head in the back her head that she has had intermittently for weeks, the headache is 10/10 at its worse and is currently 10/10. Her vital signs were normal. Her physical examination was unremarkable including no tenderness palpation of her head and a normal neurologic exam. I did order a CBC and CMP on the patient. I will obtain a CT brain to rule out stroke, bleed, mass effect. She was given Tylenol 975 mg orally for her headache. 1050: The patient's CT scan of the brain was unremarkable. Her laboratory evaluation is consistent with her chronic kidney disease. Patient did get some improvement of her headache with Tylenol. I did ask the patient again she denies being suicidal. She states that she does want to go back to her care facility and she does want to go to dialysis today. We will discuss return to her care facility versus sending her directly to dialysis since her dialysis appointment is today between noon and 13:00. MDM - Headache Lab Data Result diagrams: 02/02/22 09:37 02/02/22 09:37 Labs: Lab Results 02/02/22 02/02/22 Range/Units 09:37 09:37 WBC 5.2 (4.8-10.8) X10*3/uL RBC 3.48 L (4.20-5.50) X10*6/uL Hgb 11.4 L (12.0-16.0) g/dl Hct 36.8 L (37.0-47.0) % MCV 105.7 H (80.0-98.0) fL MCH 32.8 (27.0-33.0) pg MCHC 31.0 (31.0-35.0) g/dl RDW 14.2 (11.0-16.0) % Plt Count 135 L (160-400) X10*3/uL MPV 9.0 L (9.4-12.3) fL Immature Gran % (Auto) 0.4 (0.0-0.4) % Neut % (Auto) 68.1 (45-73) % Lymph % (Auto) 21.0 (20-40) % [place] % (Auto) 9.2 (2-11) % Eos % (Auto) 1.1 (0-4) % Baso % (Auto) 0.2 (0-2) % Lymph # (Auto) 1.1 L (1.2-4.9) X10*3/uL [place] # (Auto) 0.5 (0.1-1.2) X10*3/uL Eos # (Auto) 0.1 (0.0-0.4) X10*3/uL Baso # (Auto) 0.0 (0.0-0.2) X10*3/uL Abs Immat Gran (auto) 0.02 (0.00-0.03) X10*3/uL Absolute Neuts (auto) 3.6 (2.0-8.3) x10*3/uL Absolute Nucleated RBC 0.000 (0.0-0.012) X10*3/uL Nucleated RBC % (auto) 0.0 (0.0-0.2) /100WBC Sodium 142 (135-145) mmol/L Potassium 5.0 (3.3-5.1) mmol/L Chloride 102 (96-108) mmol/L Carbon Dioxide 28 (22-29) mmol/L Anion Gap 17 (12-20) BUN 41 H (9-16) mg/dL Creatinine 6.76 H* (0.5-1.4) mg/dL Estim Creat Clear Calc 7.4 Estimated GFR 6 Random Glucose 90 (60-115) mg/dL Calcium 8.9 (8.4-10.2) mg/dL Total Bilirubin 0.6 (0.0-1.0) mg/dL AST 17 D (5-31) U/L ALT 13 (0-31) U/L Alkaline Phosphatase 59 (39-117) U/L Total Protein 6.7 (6.5-8.0) g/dL Albumin 4.3 (3.5-5.0) g/dL Discharge Plan Discharge Clinical Impression: Headache, Suicide gesture Patient Disposition: Home, Self-Care Instructions: Acute Headache (DC) Additional Instructions: The CT scan of your head was normal, there is no evidence for a new stroke, bleeding in your brain or tumor/mass causing her headaches. This is very reassuring. I want you to continue taking Tylenol for her headaches and to discuss further treatment with your doctor that is caring for you at your nursing facility. Your blood work was consistent with your kidney disease. Follow-up with your doctor in 2 days. Please return to the emergency department if your symptoms get worse or if you develop any symptoms that are concerning to you. Prescriptions: No Action trazodone 50 mg tablet 1 tab PO BEDTIME 0RF clonazepam 1 mg tablet 1 tab PO BEDTIME PRN (Reason: Sleep) 0RF quetiapine 100 mg tablet 1 tab PO BEDTIME 0RF levothyroxine 100 mcg tablet 1 tab PO DAILY 0RF gabapentin 100 mg capsule 1 cap PO TID 0RF aripiprazole 2 mg tablet 1 tab PO DAILY 0RF sevelamer carbonate [Renvela] 800 mg tablet 3 tab PO TID 0RF midodrine 5 mg tablet 5 mg PO 5XD 0RF hydrocodone-acetaminophen 5-325 mg tablet 1 - 2 tab PO Q6H PRN (Reason: pain) Qty: 15 0RF acetaminophen 325 mg capsule 325 mg PO QID PRN0RF aspirin 81 mg tablet,delayed release (DR/EC) 81 mg PO DAILY 0RF bisacodyl 5 mg tablet,delayed release (DR/EC) 5 mg PO BEDTIME 0RF guaifenesin 200 mg/5 mL liquid 200 mg PO Q4H PRN0RF lidocaine 3.75 % cream 1 appl topical BID 0RF lidocaine [Lidoderm] 5 % adhesive patch,medicated 1 patch topical DAILY 0RF Rx Instructions: leave on most painful area for up to 12 hrs Narcan 4 mg/actuation spray,non-aerosol 4 mg intranasal Q3M PRN0RF Rx Instructions: spray 1 dose into ONE nostril; alternate nostrils w each dose until help arrives sevelamer carbonate [Renvela] 0.8 gram powder in packet 0.8 g PO TID 0RF Rx Instructions: must administer with a meal/food senna 8.6 mg capsule 8.6 mg PO BEDTIME 0RF quetiapine [Seroquel] 25 mg tablet 25 mg PO BEDTIME 0RF ondansetron HCl [Zofran] 4 mg tablet 4 mg PO Q8H 0RF diclofenac sodium 1 % gel 2 g topical QID 0RF Rx Instructions: apply to single elbow, wrist or hand; for hand includes palm/fingers/back of hand
[2022-02-02] MEDS: Acetaminophen 325 MG TABLET 975 MG PO (09:37)
[2022-02-02 09:42] LABS: MANUAL DIFF FLAG NO
[2022-02-02 09:43] LABS: Basophils Percent Auto 0.2 % (0-2); Eosinophils Absolute Auto 0.1 X10*3/uL (0.0-0.4); Eosinophils Percent Auto 1.1 % (0-4); Hematocrit 36.8 % (37.0-47.0); Hemoglobin 11.4 g/dl (12.0-16.0); Imm Gran Abs Auto 0.02 X10*3/uL (0.00-0.03); Imm Gran Pct Auto 0.4 % (0.0-0.4); Lymphocytes Absolute Auto 1.1 X10*3/uL (1.2-4.9); Mean Corpuscular Hemoglobin 32.8 pg (27.0-33.0); Mean Corpuscular Volume 105.7 fL (80.0-98.0); Monocytes Absolute Auto 0.5 X10*3/uL (0.1-1.2); Monocytes Percent Auto 9.2 % (2-11); Neutrophils Absolute Auto 3.6 x10*3/uL (2.0-8.3); Neutrophils Percent Auto 68.1 % (45-73); Platelet Count 135 X10*3/uL (160-400); Red Blood Count 3.48 X10*6/uL (4.20-5.50); Red Cell Distribution Width 14.2 % (11.0-16.0); White Blood Count 5.2 X10*3/uL (4.8-10.8)
[2022-02-02 10:13] LABS: Alanine Aminotransferase 13 U/L (0-31); Albumin Level 4.3 g/dL (3.5-5.0); Alkaline Phosphatase 59 U/L (39-117); Anion Gap 17 (12-20); Aspartate Amino Transferase 17 U/L (5-31); Bilirubin Total 0.6 mg/dL (0.0-1.0); Blood Urea Nitrogen 41 mg/dL (9-16); Calcium 8.9 mg/dL (8.4-10.2); Carbon Dioxide 28 mmol/L (22-29); Chloride 102 mmol/L (96-108); Creatinine Clr Calc Pharmacy 7.4; Estimated Glomerular Filt Rate 6; Glucose Random 90 mg/dL (60-115); Sodium 142 mmol/L (135-145); Total Protein 6.7 g/dL (6.5-8.0)
--- NOTE | 2022-02-02 11:05 | PC.NURSE ---
@11:02AM [facility] CALLED FOR BLS TRANSPORT TO [facility] W/O2 @ 3LPM NISHANT ANSWERS AND GIVES A 12:30-1:00PM [employer] TIME
== END 2022-02-02 13:54 | disposition other institution (70) ==
PROVIDERS: Emergency Provider Emergency Medicine Emergency Medical Services
DX: R51.9 Headache, unspecified (principal); R45.851 Suicidal ideations; Z79.899 Other long term (current) drug therapy
CPT/HCPCS: 36415; 70450; 80053; 85025; 99284

== ENCOUNTER 2022-03-13 20:05 | Emergency (ER) | payer MEDICARE, MEDICAID, SELFPAY ==
[2022-03-13 20:12] VITALS: BP 120/88; BP 136/79; PULSE 100; PULSE 110; RESP 16; TEMP 37; O2SAT 98; BMI 31.2
--- NOTE | 2022-03-13 21:39 | ED.PSYCH ---
HPI - Psych General Chief Complaint: Psychiatric Symptoms Stated Complaint: crisis Time Seen by Provider: 03/13/22 21:39 Source: patient Mode of arrival: EMS History of Present Illness HPI Narrative: patient with history of end-stage renal disease on dialysis came from assisted for suicidal feeling for threatening to kill herself in room it while sleeping pointing pressors tearful and apologetic in triage patient says that she made the statements in anger as she is upset [facility] couldnot give her kidney Related Data Home Medications Medication Instructions Recorded Confirmed aripiprazole 2 mg tablet 1 tab PO DAILY 06/05/21 09/12/21 clonazepam 1 mg tablet 1 tab PO BEDTIME PRN Sleep 06/05/21 09/12/21 gabapentin 100 mg capsule 1 cap PO TID 06/05/21 09/12/21 levothyroxine 100 mcg tablet 1 tab PO DAILY 06/05/21 09/12/21 quetiapine 100 mg tablet 1 tab PO BEDTIME 06/05/21 09/12/21 sevelamer carbonate 800 mg tablet 3 tab PO TID 06/05/21 09/12/21 (Renvela) trazodone 50 mg tablet 1 tab PO BEDTIME 06/05/21 09/12/21 midodrine 5 mg tablet 5 mg PO 5XD 06/06/21 09/12/21 acetaminophen 325 mg capsule 325 mg PO QID PRN 09/12/21 aspirin 81 mg tablet,delayed 81 mg PO DAILY 09/12/21 release bisacodyl 5 mg tablet,delayed 5 mg PO BEDTIME 09/12/21 release diclofenac sodium 1 % topical gel 2 g topical QID 09/12/21 guaifenesin 200 mg/5 mL oral liquid 200 mg PO Q4H PRN 09/12/21 lidocaine 3.75 % topical cream 1 appl topical BID 09/12/21 lidocaine 5 % topical patch 1 patch topical DAILY 09/12/21 (Lidoderm) naloxone 4 mg/actuation nasal 4 mg intranasal Q3M PRN 09/12/21 spray (Narcan) ondansetron HCl 4 mg tablet 4 mg PO Q8H 09/12/21 (Zofran) quetiapine 25 mg tablet (Seroquel) 25 mg PO BEDTIME 09/12/21 sennosides 8.6 mg capsule (senna) 8.6 mg PO BEDTIME 09/12/21 sevelamer carbonate 0.8 gram oral 0.8 g PO TID 09/12/21 powder packet (Renvela) Previous Rx's Medication Instructions Recorded hydrocodone 5 mg-acetaminophen 325 1 - 2 tab PO Q6H PRN pain #15 tabs 09/20/21 mg tablet Allergies Allergy/AdvReac Type Severity Reaction Status Date / Time adhesive tape Allergy Unknown Verified 02/02/22 09:11 Penicillins [PCN] Allergy Unknown Verified 09/20/21 06:31 Sulfa (Sulfonamide Allergy Unknown Verified 09/20/21 06:31 Antibiotics) Review of Systems Review of Systems: Yes all other systems are reviewed and are negative [facility] Past Medical History Medical History Acute pneumothorax Afib Aggressive behavior Anemia Anemia, chronic renal failure Asthma AV fistula Bipolar 1 disorder Depression Dysphagia End stage chronic kidney disease GERD without esophagitis HTN (hypertension) Hyperlipidemia Hypothyroidism Interstitial pulmonary disease Osteoporosis Pleural effusion Pulmonary hypertension Pyelonephritis Social History Social History Alcohol intake: unknown Patient Tobacco Use Status: Never used Tobacco Use of substances other than those prescribed or required for medical reasons: No Advance Directives: Yes Advance Directives on File: Yes Advance Directives Date on File: 06/05/21 Physical Exam Vital Signs: Vital Signs: Last Vital Signs Temp 98.6 F 03/13/22 22:00 Pulse 81 03/14/22 06:00 Resp 15 03/14/22 06:00 BP 146/69 H 03/14/22 06:00 Pulse Ox 94 03/14/22 06:00 O2 Del Method 03/14/22 06:00 BMI result Body Mass Index 31.2 Appearance: Alert. Oriented X3. No acute distress. Eyes: no pallor or icterus ENT: Pharynx normal. Oral Mucosa moist Neck: Normal inspection. Neck supple. CVS: Normal heart rate and rhythm. Pulses normal. Respiratory: No respiratory distress. Equal air entry bilateral, no wheezing/rales/rhonchi Abdomen: Soft and nontender. Bowel sounds are present, no mass palpable, no CVA tenderness Skin: Skin warm and dry. Normal skin color. Normal skin turgor. Extremities: No lower extremity edema. No calf tenderness Psych: common quite no delusions or hallucinations no suicidal feeling at this time Neuro: Oriented X 3. No motor deficit. No sensory deficit.No cerebellar signs , cranial nerves II-XII intact MDM - Psych MDM Narrative Medical decision making narrative: 06:10 patient with end-stage renal disease on dialysis Friday and Friday came with mood disorder with suicidal feeling seen by therapist will be going back to assisted labs potassium of 6.3 without any acute EKG changes will give her calcium gluconate, sodium bicarb , Lokelma. Patient is due for dialysis at noon time will try to get dialysis earlier calling diet technician registered 06:[address] Clement diet technician registered okay to go back to assisted and can have her dialysis at noon time . Medical Records Attestation: I reviewed the patient's medical records. Lab Data Attestation: I reviewed the patient's lab results. Result diagrams: 03/13/22 22:06 03/13/22 22:05 Labs: Lab Results 03/13/22 03/13/22 03/13/22 Range/Units 22:05 22:05 22:06 WBC 5.8 (4.8-10.8) X10*3/uL RBC 2.54 L D (4.20-5.50) X10*6/uL Hgb 8.4 L D (12.0-16.0) g/dl Hct 26.5 L D (37.0-47.0) % MCV 104.3 H (80.0-98.0) fL MCH 33.1 H (27.0-33.0) pg MCHC 31.7 (31.0-35.0) g/dl RDW 15.0 (11.0-16.0) % Plt Count 144 L (160-400) X10*3/uL MPV 9.1 L (9.4-12.3) fL Immature Gran % (Auto) 0.2 (0.0-0.4) % Neut % (Auto) 63.3 (45-73) % Lymph % (Auto) 26.0 (20-40) % Becker % (Auto) 8.5 (2-11) % Eos % (Auto) 1.7 (0-4) % Baso % (Auto) 0.3 (0-2) % Lymph # (Auto) 1.5 (1.2-4.9) X10*3/uL Becker # (Auto) 0.5 (0.1-1.2) X10*3/uL Eos # (Auto) 0.1 (0.0-0.4) X10*3/uL Baso # (Auto) 0.0 (0.0-0.2) X10*3/uL Abs Immat Gran (auto) 0.01 (0.00-0.03) X10*3/uL Absolute Neuts (auto) 3.7 (2.0-8.3) x10*3/uL Absolute Nucleated RBC 0.000 (0.0-0.012) X10*3/uL Nucleated RBC % (auto) 0.0 (0.0-0.2) /100WBC Sodium 141 (135-145) mmol/L Potassium 6.3 H* D (3.3-5.1) mmol/L Chloride 102 (96-108) mmol/L Carbon Dioxide 27 (22-29) mmol/L Anion Gap 18 (12-20) BUN 48 H (9-16) mg/dL Creatinine 5.61 H* (0.5-1.4) mg/dL Estim Creat Clear Calc 8.5 Estimated GFR 8 Random Glucose 100 (60-115) mg/dL Calcium 8.2 L D (8.4-10.2) mg/dL Total Bilirubin 0.4 (0.0-1.0) mg/dL AST 16 (5-31) U/L ALT 11 (0-31) U/L Alkaline Phosphatase 52 (39-117) U/L Total Protein 6.2 L (6.5-8.0) g/dL Albumin 4.0 (3.5-5.0) g/dL COVID-19 ([facility]) Negative (Negative) COVID-19 Clin Com See Note Discharge Plan Discharge Clinical Impression: Adjustment disorder, Acute hyperkalemia, End stage chronic kidney disease Patient Disposition: Home, Self-Care Instructions: Mood Disorders (ED), Hyperkalemia (ED), End Stage Kidney Disease (ED) Additional Instructions: continue treatments and follow with PCP /therapist have your dialysis as scheduled Prescriptions: No Action trazodone 50 mg tablet 1 tab PO BEDTIME clonazepam 1 mg tablet 1 tab PO BEDTIME PRN (Reason: Sleep) quetiapine 100 mg tablet 1 tab PO BEDTIME levothyroxine 100 mcg tablet 1 tab PO DAILY gabapentin 100 mg capsule 1 cap PO TID aripiprazole 2 mg tablet 1 tab PO DAILY sevelamer carbonate [Renvela] 800 mg tablet 3 tab PO TID midodrine 5 mg tablet 5 mg PO 5XD hydrocodone-acetaminophen 5-325 mg tablet 1 - 2 tab PO Q6H PRN (Reason: pain) Qty: 15 0RF acetaminophen 325 mg capsule 325 mg PO QID PRN aspirin 81 mg tablet,delayed release (DR/EC) 81 mg PO DAILY bisacodyl 5 mg tablet,delayed release (DR/EC) 5 mg PO BEDTIME guaifenesin 200 mg/5 mL liquid 200 mg PO Q4H PRN lidocaine 3.75 % cream 1 appl topical BID lidocaine [Lidoderm] 5 % adhesive patch,medicated 1 patch topical DAILY Rx Instructions: leave on most painful area for up to 12 hrs Narcan 4 mg/actuation spray,non-aerosol 4 mg intranasal Q3M PRN Rx Instructions: spray 1 dose into ONE nostril; alternate nostrils w each dose until help arrives sevelamer carbonate [Renvela] 0.8 gram powder in packet 0.8 g PO TID Rx Instructions: must administer with a meal/food senna 8.6 mg capsule 8.6 mg PO BEDTIME quetiapine [Seroquel] 25 mg tablet 25 mg PO BEDTIME ondansetron HCl [Zofran] 4 mg tablet 4 mg PO Q8H diclofenac sodium 1 % gel 2 g topical QID Rx Instructions: apply to single elbow, wrist or hand; for hand includes palm/fingers/back of hand
[2022-03-13 22:00] VITALS: BP 136/79; PULSE 100; RESP 16; TEMP 37
[2022-03-13 22:11] LABS: MANUAL DIFF FLAG NO
[2022-03-13 22:16] LABS: Basophils Percent Auto 0.3 % (0-2); Eosinophils Absolute Auto 0.1 X10*3/uL (0.0-0.4); Eosinophils Percent Auto 1.7 % (0-4); Hematocrit 26.5 % (37.0-47.0); Hemoglobin 8.4 g/dl (12.0-16.0); Imm Gran Abs Auto 0.01 X10*3/uL (0.00-0.03); Imm Gran Pct Auto 0.2 % (0.0-0.4); Lymphocytes Absolute Auto 1.5 X10*3/uL (1.2-4.9); Mean Corpuscular HGB Conc 31.7 g/dl (31.0-35.0); Mean Corpuscular Hemoglobin 33.1 pg (27.0-33.0); Mean Corpuscular Volume 104.3 fL (80.0-98.0); Mean Platelet Volume 9.1 fL (9.4-12.3); Monocytes Absolute Auto 0.5 X10*3/uL (0.1-1.2); Monocytes Percent Auto 8.5 % (2-11); Neutrophils Absolute Auto 3.7 x10*3/uL (2.0-8.3); Neutrophils Percent Auto 63.3 % (45-73); Platelet Count 144 X10*3/uL (160-400); Red Blood Count 2.54 X10*6/uL (4.20-5.50); White Blood Count 5.8 X10*3/uL (4.8-10.8)
[2022-03-13 22:33] LABS: COVID-19 Test Negative (Negative)
[2022-03-13 23:04] LABS: Alanine Aminotransferase 11 U/L (0-31); Alkaline Phosphatase 52 U/L (39-117); Anion Gap 18 (12-20); Aspartate Amino Transferase 16 U/L (5-31); Bilirubin Total 0.4 mg/dL (0.0-1.0); Blood Urea Nitrogen 48 mg/dL (9-16); Calcium 8.2 mg/dL (8.4-10.2); Carbon Dioxide 27 mmol/L (22-29); Chloride 102 mmol/L (96-108); Creatinine Clr Calc Pharmacy 8.5; Estimated Glomerular Filt Rate 8; Glucose Random 100 mg/dL (60-115); Potassium 6.3 mmol/L (3.3-5.1); Sodium 141 mmol/L (135-145); Total Protein 6.2 g/dL (6.5-8.0)
[2022-03-14] VITALS: RESP 15
--- NOTE | 2022-03-14 01:55 | PC.NURSE ---
Patient was sent by SNF because she threatened her roomate as well as made SI statements. Patients states that she was mad at her nurse and that she was not going to hurt her roomate and was not suicidal. Consult by HOUSTONN ordered and HOUSTONN came by to do an assessment on patient.
[2022-03-14 02:00] VITALS: BP 132/72; PULSE 88; RESP 15; O2SAT 94
--- NOTE | 2022-03-14 02:58 | PC.NURSE ---
Patient was seen by SINDY and the plan is for patient to be discharged back to senior care in the morning. The senior care is making some changes to her roomate situation
--- NOTE | 2022-03-14 03:51 | PC.NURSE ---
Per MD, pt cleared by N and is returning to facility in the morning. Per MD, no sitter required. Sitter removed from bedside.
[2022-03-14 06:00] VITALS: BP 146/69; PULSE 81; RESP 15; O2SAT 94
--- NOTE | 2022-03-14 06:08 | ECG_ITS ---
Test Reason : HYPERKALEMIA Blood Pressure : / mmHG Vent. Rate : 081 BPM Atrial Rate : 081 BPM P-R Int : 182 ms QRS Dur : 112 ms QT Int : 412 ms P-R-T Axes : 059 045 065 degrees QTc Int : 478 ms Normal sinus rhythm incomplete Right bundle branch block Borderline ECG When compared with ECG of 07-OCT-2021 18:41, IL interval has decreased Referred By: Philip Arriaga Electronically Signed By:ROLAN SANDOVAL
[2022-03-14] MEDS: Sodium Bicarbonate 8.4% 50 MEQ/50 ML SYRINGE IVPUSH (06:51)
[2022-03-14] MEDS: Sodium Zirconium Cyclosilicate 10 GM POWD.PACK PO (06:51)
[2022-03-14 06:57] VITALS: BP 130/84; PULSE 79; RESP 16; TEMP 36.6; O2SAT 100
[2022-03-14] MEDS: Calcium Gluconate/NaCl,Iso-Osm 2 GM/100 ML PLAST..BAG IV (07:08)
[2022-03-14 07:11] VITALS: BP 139/72; PULSE 81; RESP 16; TEMP 36.6; O2SAT 94
--- NOTE | 2022-03-14 10:11 | PC.NURSE ---
attempted to call nurse to nurse to [facility], no answer when transferred to floor patient is on.
== END 2022-03-14 10:07 | disposition home or self-care (01) ==
PROVIDERS: Emergency Provider Internal Medicine; PCP Internal Medicine
DX: F43.20 Adjustment disorder, unspecified (principal); E87.5 Hyperkalemia; R45.851 Suicidal ideations; I12.0 Hypertensive chronic kidney disease with stage 5 chronic kidney disease or end stage renal disease; N18.6 End stage renal disease; Z99.2 Dependence on renal dialysis; I48.91 Unspecified atrial fibrillation; E78.5 Hyperlipidemia, unspecified; Z20.822 Contact with and (suspected) exposure to COVID-19; Z79.82 Long term (current) use of aspirin
CPT/HCPCS: 36415; 80053; 85025; 87635; 93005; 96365; 96366; 96374; 99285; J0610

== ENCOUNTER 2022-06-19 17:12 | Emergency (ER) | payer MEDICARE, MEDICAID, SELFPAY ==
--- NOTE | ~2022-06-19 | XR_ITS ---
EXAMINATION: XR CHEST CLINICAL INFORMATION: Chest pain COMPARISON: 06/05/2021 TECHNIQUE: Frontal view of the chest was obtained. The patient is rotated with an underlying scoliosis. FINDINGS: The so are prominent. 1 common considerations, in particular given lobular contours, is adenopathy. Recommend further evaluation with chest CT. In the setting of chest pain and additional consideration is pulmonary embolism. Recommend chest CT with contrast. Abnormal Central predominant reticular lung markings are unchanged. These appear due to thick-walled airways. No focal pneumonia. No effusion or pneumothorax. A skin fold projects over the lower right chest. There is vascular ectasia. The tortuous aorta is stable when compared with the prior chest x-ray. Contrast enhanced chest CT will help to exclude aneurysm or dissection. No pulmonary edema. Nonobstructive gas pattern. No acute osseous abnormality. As above, idiopathic scoliosis. Old healed right fifth and sixth rib fractures. XR/XR chest 1V IMPRESSION: 1. Abnormal hilar prominence. Adenopathy is a concern. Recommend contrast-enhanced chest CT. 2. Chronic bronchial wall thickening. No pneumonia. 3. Chronic aortic ectasia. 4. Old healed right rib fractures.
--- NOTE | ~2022-06-19 | CT_ITS ---
EXAMINATION: CT ANGIOGRAM OF THE CHEST WITH AND WITHOUT CONTRAST (CT PULMONARY ANGIOGRAM FOR PE) CLINICAL INFORMATION: Reason for Exam + dimer, cp, sob COMPARISON: None TECHNIQUE: Prior to contrast administration, noncontrast localization images were obtained. Subsequently, multidetector volumetric imaging was performed from the thoracic inlet to below the diaphragms following the administration of 65 mL Omnipaque 350 intravenous contrast. No contrast reaction reported Sagittal, coronal, and MIP oblique sagittal reformatted images were obtained on the CT workstation, uploaded to PACS, and reviewed. This CT examination was performed using dose optimization techniques as appropriate, variously including the following: *Automated exposure control *Adjustment of mA and/or kV according to patient size (this includes techniques or standardized protocols for targeted exams where dose is matched to indication/reason for exam; i.e. extremities or head) *Use of iterative reconstruction technique Total exam dose-length product 418 mGy-cm FINDINGS: QUALITY OF STUDY/CONTRAST BOLUS: Satisfactory. PULMONARY ARTERIES: No pulmonary arterial filling defects suspicious for acute pulmonary embolus. There are thin webs/bands within segmental branches in the right and left lower lobes (please see narayanan images consistent with sequela of prior pulmonary emboli. There is some tortuosity of segmental branches with prominent central pulmonary trunk measuring 3.1 cm in size and appearance. Appearance of distal pulmonary artery subsegmental branches. THORACIC AORTA: No aneurysm or dissection. LUNG: Few scattered calcified granulomas bilaterally. No suspicious appearing pulmonary nodules. Mild bibasilar subsegmental atelectasis. No airspace consolidation. Mild mosaic attenuation of the pulmonary parenchyma most prominently in the upper lobes. Central through segmental airways are clear PLEURA: . Minimal right basilar pleural thickening. No pleural effusion. MEDIASTINUM: No cardiomegaly. No pericardial effusion. Coronary artery vascular calcifications are present. No mediastinal or hilar lymphadenopathy. No evidence of septal bowing or right heart strain. CHEST WALL/AXILLA: Left axillary venous stent. No axillary lymphadenopathy. Prominent collateral veins in the anterior chest wall. OSSEOUS STRUCTURES: No acute or suspicious osseous abnormality. Multiple chronic healed right rib fracture deformities. Dextroconvex curvature the thoracic spine with multilevel degenerative disc disease. UPPER ABDOMEN: Atrophic visualized left kidney. 2.2 cm low-density left adrenal nodule consistent with lipid rich adenoma. 1.6 cm simple hepatic cyst in the left liver lobe. Status post cholecystectomy. Surgical clips in the gallbladder fossa. Small hiatal hernia. No reflux of contrast into the hepatic veins to suggest elevated right heart pressures. CT/CT angio chest PE protocol IMPRESSION: 1. No evidence of acute central or segmental pulmonary embolus. 2. Findings consistent with prior pulmonary emboli and suggestive of chronic thromboembolic disease with a couple bands/webs within segmental pulmonary arterial branches in the lower lobes, mildly dilated main pulmonary arteries and a slightly mosaic attenuation in the pulmonary parenchyma particularly in the upper lobes. Correlate with history of prior pulmonary embolus. 3. Minimal bibasilar atelectasis. No airspace consolidation. VTE: negative
[2022-06-19 17:28] VITALS: BP 125/78; BP 166/90; PULSE 84; PULSE 96; RESP 18; TEMP 37.2; O2SAT 96; BMI 26.2
--- NOTE | 2022-06-19 17:34 | ECG_ITS ---
Test Reason : CHEST PAIN Blood Pressure : / mmHG Vent. Rate : 083 BPM Atrial Rate : 083 BPM P-R Int : 192 ms QRS Dur : 106 ms QT Int : 398 ms P-R-T Axes : 063 022 050 degrees QTc Int : 467 ms Normal sinus rhythm Incomplete right bundle branch block Borderline ECG When compared with ECG of 14-MAR-2022 06:20, No significant change was found Referred By: Gloria Schreiber Electronically Signed By:DA CARDENAS
--- NOTE | 2022-06-19 17:36 | ED.CHESTPAIN ---
HPI - Chest Pain General Chief Complaint: Chest Pain Stated Complaint: CHEST PAIN Time Seen by Provider: 06/19/22 17:34 Source: patient and EMS Mode of arrival: EMS Limitations: other (Poor historian) History of Present Illness HPI narrative: 66-year-old coming from shelter facility, past medical history significant for anemia, asthma, acute pneumothorax, atrial fibrillation, GERD, end-stage chronic kidney disease on HD (friday, , friday), depression, bipolar disorder, hypertension, hyperlipidemia, hypothyroidism, pulmonary hypertension presenting to the emergency department complaints of 2 days of substernal nonradiating chest pain described as an aching pain to the center of her chest. Patient with vague complaints of shortness of breath but tells me this is her baseline. She wears 2 L via nasal cannula at baseline and comes in saturating 96% on room air. Patient tells me she feels tired and weak. According to EMS staff at the shelter [facility] report the patient has been coming to the emergency department frequently, and they are questioning Behavioral versus medical. Patient only takes aspirin, no anticoagulation. MD complaint: chest pain and chest heaviness Related Data Home Medications Medication Instructions Recorded Confirmed aripiprazole 2 mg tablet 1 tab PO DAILY 06/05/21 09/12/21 clonazepam 1 mg tablet 1 tab PO BEDTIME PRN Sleep 06/05/21 09/12/21 gabapentin 100 mg capsule 1 cap PO TID 06/05/21 09/12/21 levothyroxine 100 mcg tablet 1 tab PO DAILY 06/05/21 09/12/21 quetiapine 100 mg tablet 1 tab PO BEDTIME 06/05/21 09/12/21 sevelamer carbonate 800 mg tablet 3 tab PO TID 06/05/21 09/12/21 (Renvela) trazodone 50 mg tablet 1 tab PO BEDTIME 06/05/21 09/12/21 midodrine 5 mg tablet 5 mg PO 5XD 06/06/21 09/12/21 acetaminophen 325 mg capsule 325 mg PO QID PRN 09/12/21 aspirin 81 mg tablet,delayed 81 mg PO DAILY 09/12/21 release bisacodyl 5 mg tablet,delayed 5 mg PO BEDTIME 09/12/21 release diclofenac sodium 1 % topical gel 2 g topical QID 09/12/21 guaifenesin 200 mg/5 mL oral liquid 200 mg PO Q4H PRN 09/12/21 lidocaine 3.75 % topical cream 1 appl topical BID 09/12/21 lidocaine 5 % topical patch 1 patch topical DAILY 09/12/21 (Lidoderm) naloxone 4 mg/actuation nasal 4 mg intranasal Q3M PRN 09/12/21 spray (Narcan) ondansetron HCl 4 mg tablet 4 mg PO Q8H 09/12/21 (Zofran) quetiapine 25 mg tablet (Seroquel) 25 mg PO BEDTIME 09/12/21 sennosides 8.6 mg capsule (senna) 8.6 mg PO BEDTIME 09/12/21 sevelamer carbonate 0.8 gram oral 0.8 g PO TID 09/12/21 powder packet (Renvela) Previous Rx's Medication Instructions Recorded hydrocodone 5 mg-acetaminophen 325 1 - 2 tab PO Q6H PRN pain #15 tabs 09/20/21 mg tablet apixaban 5 mg (74 tabs) tablets in 5 mg PO BID #74 ea 06/19/22 a dose pack (Fenergo DVT-PE Treat 30D Start) Allergies Allergy/AdvReac Type Severity Reaction Status Date / Time adhesive tape Allergy Unknown Verified 02/02/22 09:11 Penicillins [PCN] Allergy Unknown Verified 09/20/21 06:31 Sulfa (Sulfonamide Allergy Unknown Verified 09/20/21 06:31 Antibiotics) Review of Systems Review of Systems: Constitutional : No Weight loss, No Fever, No Chills, + Fatigue, + Malaise ENT/Mouth : No sore throat, No Rhinorrhea Eyes: No Eye Pain, No Swelling, No Redness Cardiovascular : + Chest Pain, + SOB, No Dyspnea on Exertion, No Orthopnea, No Edema, No Palpitations Respiratory : No Cough, No Sputum, No Wheezing Gastrointestinal : No Nausea, No Vomiting, No Diarrhea, No Constipation, No abdominal Pain, No Hematochezia, No Melena Genitourinary : No Dysuria, No Urinary Frequency, No Hematuria, Musculoskeletal : No joint pain, No Myalgias, No Joint Swelling Skin : No Skin Lesions, No rash Neuro : No Weakness, No Numbness, No Dizziness, No Headache Psych : No Anxiety/Panic, No Depression All other systems reviewed and are negative Yes all other systems are reviewed and are negative [facility] Past Medical History Attestation statement: The following information was validated with the patient. Source: old records reviewed and nursing notes reviewed Medical History Acute pneumothorax Afib Aggressive behavior Anemia Anemia, chronic renal failure Asthma AV fistula Bipolar 1 disorder Depression Dysphagia End stage chronic kidney disease GERD without esophagitis HTN (hypertension) Hyperlipidemia Hypothyroidism Interstitial pulmonary disease Osteoporosis Pleural effusion Pulmonary hypertension Pyelonephritis Social History Social History Alcohol intake: unknown Patient Tobacco Use Status: Never used Tobacco Advance Directives: Yes Advance Directives on File: Yes Advance Directives Date on File: 06/05/21 Physical Exam Vital Signs: Vital Signs: Last Vital Signs Temp 98.1 F 06/19/22 21:47 Pulse 83 06/19/22 21:47 Resp 16 06/19/22 21:47 BP 132/67 06/19/22 21:47 Pulse Ox 96 06/19/22 21:47 O2 Del Method 06/19/22 21:47 O2 Flow Rate 2 06/19/22 21:47 Oxygen Flow Rate 2 06/19/22 17:28 BMI result Body Mass Index 26.2 Vital signs stable Appearance: Alert.? Oriented X3.? No acute distress.? Head: Normocephalic, atraumatic, no step-offs or deformities Eyes: Pupils equal, round and reactive to light.? ENT: Pharynx normal.? Neck: Normal inspection.? Neck supple.? CVS: Normal heart rate and rhythm.? Pulses normal.? Respiratory: No respiratory distress.? Breath sounds normal.? Abdomen: Soft and nontender.? Skin: Skin warm and dry.? Normal skin color.? Normal skin turgor.? Extremities: No lower extremity edema.? No calf ttp, negative enid b/l. Global weakness + fistual normal on left upper extremity Neuro: Oriented X 3.? No motor deficit.? No sensory deficit. CN 2-12 intact Course Reevaluation(s) Reevaluation #1: CBC appears to be around patient's baseline. Chemistry with elevated potassium, was given Lokelma. Patient with elevated BUN and creatinine however known history of CKD, scheduled for dialysis tomorrow. D-dimer positive, CTA ordered since patient is getting dialyzed tomorrow. Trop 9.8, ekg non ischemic unlikely ACS. COVID negative. Urine pending. Time: 20:50 Reevaluation #2: Patient's urine with white blood cells however no signs of acute infection. Time: 22:10 Reevaluation #3: CTA with no evidence of acute central or segmental pulmonary emboli however findings are consistent with prior pulmonary emboli below eye and suggestive of chronic thromboembolic disease with couple band/webs within the segmental pulmonary arterial branches in the lower lobes mildly dilated main pulmonary arteries and slight mosaic attenuation in the pulmonary parenchyma. Discussed this case with my attending who recommends discharging patient on p.o. Eliquis. This case was also discussed with the hospitalist who does not feel as though patient requires inpatient admission agrees with p.o. Eliquis and discharged back to shelter facility where she can receive dialysis tomorrow. Time: 22:49 Additional Reevaluation(s): 1802 I did add a BNP on this patient prior to dc noted to be elevated at 655 however expected due to ESRD. Disussed this case with my attending who agrees with my dx and tx plan. Normal coags will start on eliquis. I did speak to the nurse at patient's shelter facility he tells me he will pass it along to the provider that she needs repeat laboratory studies in close observation as she was just started on a blood thinner. He reiterates that she is not taking any blood thinners at this time only aspirin. I advised him to stop aspirin and to start taking Eliquis as prescribed. He tells me he will make sure this information get the past long also patient is to get dialysis tomorrow. At this time I feel comfortable with discharge. MDM - Chest Pain MDM Narrative Medical decision making narrative: 350 66-year-old female presenting from shelter facility for substernal nonradiating chest pain. No shortness of breath. Appears well. Stable vital signs. On baseline 2 L via nasal cannula. Patient on aspirin daily. Physical examination benign. Likely noncardiac related chest pain however will rule out ACS, PE although unlikely. Plan at this time is to obtain basic labs, EKG, troponin, cardiac monitoring, UA, D-dimer Medical Records Data Attestation: I reviewed the patient's medical records. Lab Data Attestation: I reviewed the patient's lab results. Result diagrams: 06/19/22 18:20 06/19/22 18:20 Labs: Lab Results 06/19/22 06/19/22 06/19/22 Range/Units 18:20 18:20 18:20 WBC 3.5 L (4.8-10.8) X10*3/uL RBC 2.83 L (4.20-5.50) X10*6/uL Hgb 9.2 L (12.0-16.0) g/dl Hct 28.9 L (37.0-47.0) % MCV 102.1 H (80.0-98.0) fL MCH 32.5 (27.0-33.0) pg MCHC 31.8 (31.0-35.0) g/dl RDW 15.3 (11.0-16.0) % Plt Count 94 L D (160-400) X10*3/uL MPV 9.7 (9.4-12.3) fL Immature Gran % (Auto) 0.3 (0.0-0.4) % Neut % (Auto) 71.9 (45-73) % Lymph % (Auto) 16.4 L (20-40) % [place] % (Auto) 8.8 (2-11) % Eos % (Auto) 2.3 (0-4) % Baso % (Auto) 0.3 (0-2) % Lymph # (Auto) 0.6 L (1.2-4.9) X10*3/uL [place] # (Auto) 0.3 (0.1-1.2) X10*3/uL Eos # (Auto) 0.1 (0.0-0.4) X10*3/uL Baso # (Auto) 0.0 (0.0-0.2) X10*3/uL Abs Immat Gran (auto) 0.01 (0.00-0.03) X10*3/uL Absolute Neuts (auto) 2.6 (2.0-8.3) x10*3/uL Absolute Nucleated RBC 0.000 (0.0-0.012) X10*3/uL Nucleated RBC % (auto) 0.0 (0.0-0.2) /100WBC PT 12.5 (10.0-13.1) SEC INR 1.1 (0.9-1.1) D-Dimer High Sensitivty 1112 NG/ML Sodium 143 (135-145) mmol/L Potassium 5.5 H (3.3-5.1) mmol/L Chloride 100 (96-108) mmol/L Carbon Dioxide 32 H (22-29) mmol/L Anion Gap 17 (12-20) BUN 38 H (9-16) mg/dL Creatinine 6.03 H* (0.5-1.4) mg/dL Estim Creat Clear Calc 8.2 Estimated GFR 7 Random Glucose 89 (60-115) mg/dL Calcium 7.6 L D (8.4-10.2) mg/dL Magnesium 2.1 (1.6-2.6) mg/dL Total Bilirubin 0.5 (0.0-1.0) mg/dL AST 17 (5-31) U/L ALT 15 (0-31) U/L Alkaline Phosphatase 56 (39-117) U/L Troponin I High Sens (<3.5-17.0) ng/L B-Natriuretic Peptide (<100) pg/mL Total Protein 5.9 L (6.5-8.0) g/dL Albumin 3.9 (3.5-5.0) g/dL Urine Color Urine Appearance Urine pH (5.0-9.0) Ur Specific Rarden (1.005-1.025) Urine Protein (Neg-Trace) mg/dL Urine Glucose (UA) (Negative) mg/dL Urine Ketones (Negative) mg/dL Urine Blood (Negative) Urine Nitrite (Negative) Ur Leukocyte Esterase (Negative) Urine RBC (0-2) /HPF Urine WBC (0-5) /HPF Ur Squamous Epith Cells (0-2) /HPF Urine Bacteria (None Seen) Hyaline Casts (0-2) /LPF COVID-19 (TRINIDAD) (Negative) COVID-19 Clin Com 06/19/22 06/19/22 06/19/22 Range/Units 18:20 18:20 21:04 WBC (4.8-10.8) X10*3/uL RBC (4.20-5.50) X10*6/uL Hgb (12.0-16.0) g/dl Hct (37.0-47.0) % MCV (80.0-98.0) fL MCH (27.0-33.0) pg MCHC (31.0-35.0) g/dl RDW (11.0-16.0) % Plt Count (160-400) X10*3/uL MPV (9.4-12.3) fL Immature Gran % (Auto) (0.0-0.4) % Neut % (Auto) (45-73) % Lymph % (Auto) (20-40) % [place] % (Auto) (2-11) % Eos % (Auto) (0-4) % Baso % (Auto) (0-2) % Lymph # (Auto) (1.2-4.9) X10*3/uL [place] # (Auto) (0.1-1.2) X10*3/uL Eos # (Auto) (0.0-0.4) X10*3/uL Baso # (Auto) (0.0-0.2) X10*3/uL Abs Immat Gran (auto) (0.00-0.03) X10*3/uL Absolute Neuts (auto) (2.0-8.3) x10*3/uL Absolute Nucleated RBC (0.0-0.012) X10*3/uL Nucleated RBC % (auto) (0.0-0.2) /100WBC PT (10.0-13.1) SEC INR (0.9-1.1) D-Dimer High Sensitivty NG/ML Sodium (135-145) mmol/L Potassium (3.3-5.1) mmol/L Chloride (96-108) mmol/L Carbon Dioxide (22-29) mmol/L Anion Gap (12-20) BUN (9-16) mg/dL Creatinine (0.5-1.4) mg/dL Estim Creat Clear Calc Estimated GFR Random Glucose (60-115) mg/dL Calcium (8.4-10.2) mg/dL Magnesium (1.6-2.6) mg/dL Total Bilirubin (0.0-1.0) mg/dL AST (5-31) U/L ALT (0-31) U/L Alkaline Phosphatase (39-117) U/L Troponin I High Sens 9.8 D 13.1 (<3.5-17.0) ng/L B-Natriuretic Peptide (<100) pg/mL Total Protein (6.5-8.0) g/dL Albumin (3.5-5.0) g/dL Urine Color Urine Appearance Urine pH (5.0-9.0) Ur Specific Rarden (1.005-1.025) Urine Protein (Neg-Trace) mg/dL Urine Glucose (UA) (Negative) mg/dL Urine Ketones (Negative) mg/dL Urine Blood (Negative) Urine Nitrite (Negative) Ur Leukocyte Esterase (Negative) Urine RBC (0-2) /HPF Urine WBC (0-5) /HPF Ur Squamous Epith Cells (0-2) /HPF Urine Bacteria (None Seen) Hyaline Casts (0-2) /LPF COVID-19 (TRINID[facility]) Negative (Negative) COVID-19 Clin Com See Note 06/19/22 06/19/22 Range/Units 21:46 22:20 WBC (4.8-10.8) X10*3/uL RBC (4.20-5.50) X10*6/uL Hgb (12.0-16.0) g/dl Hct (37.0-47.0) % MCV (80.0-98.0) fL MCH (27.0-33.0) pg MCHC (31.0-35.0) g/dl RDW (11.0-16.0) % Plt Count (160-400) X10*3/uL MPV (9.4-12.3) fL Immature Gran % (Auto) (0.0-0.4) % Neut % (Auto) (45-73) % Lymph % (Auto) (20-40) % [place] % (Auto) (2-11) % Eos % (Auto) (0-4) % Baso % (Auto) (0-2) % Lymph # (Auto) (1.2-4.9) X10*3/uL [place] # (Auto) (0.1-1.2) X10*3/uL Eos # (Auto) (0.0-0.4) X10*3/uL Baso # (Auto) (0.0-0.2) X10*3/uL Abs Immat Gran (auto) (0.00-0.03) X10*3/uL Absolute Neuts (auto) (2.0-8.3) x10*3/uL Absolute Nucleated RBC (0.0-0.012) X10*3/uL Nucleated RBC % (auto) (0.0-0.2) /100WBC PT (10.0-13.1) SEC INR (0.9-1.1) D-Dimer High Sensitivty NG/ML Sodium (135-145) mmol/L Potassium (3.3-5.1) mmol/L Chloride (96-108) mmol/L Carbon Dioxide (22-29) mmol/L Anion Gap (12-20) BUN (9-16) mg/dL Creatinine (0.5-1.4) mg/dL Estim Creat Clear Calc Estimated GFR Random Glucose (60-115) mg/dL Calcium (8.4-10.2) mg/dL Magnesium (1.6-2.6) mg/dL Total Bilirubin (0.0-1.0) mg/dL AST (5-31) U/L ALT (0-31) U/L Alkaline Phosphatase (39-117) U/L Troponin I High Sens (<3.5-17.0) ng/L B-Natriuretic Peptide 655 H (<100) pg/mL Total Protein (6.5-8.0) g/dL Albumin (3.5-5.0) g/dL Urine Color Yellow Urine Appearance Clear Urine pH >= 9.0 (5.0-9.0) Ur Specific Rarden 1.015 (1.005-1.025) Urine Protein 300 (3+) H (Neg-Trace) mg/dL Urine Glucose (UA) Negative (Negative) mg/dL Urine Ketones Negative (Negative) mg/dL Urine Blood Negative (Negative) Urine Nitrite Negative (Negative) Ur Leukocyte Esterase Moderate (2+) H (Negative) Urine RBC 0-2 (0-2) /HPF Urine WBC 21-50 H (0-5) /HPF Ur Squamous Epith Cells 6-10 (0-2) /HPF Urine Bacteria None Seen (None Seen) Hyaline Casts 0-2 (0-2) /LPF COVID-19 ([facility]) (Negative) COVID-19 Clin Com Critical Care Time Critical Care Time Critical Care Time: Yes Total Critical Care Time: 35 Attestation: I attest to this time spent taking care of the patient, obtaining history, physical, reviewing labs, imaging, speaking to my attending, speaking to patient's nursing facility. Discharge Plan Discharge Clinical Impression: Chest pain, Shortness of breath, Chronic thromboembolic disease Patient Disposition: [facility] Instructions: Chest Pain (DC), Shortness of Breath (ED) Additional Instructions: Take your medications as prescribed. If you were prescribed antibiotics today, it is important that you take your medication to their entirety, do not skip any doses, do not finish them early. Follow-up with your primary care provider this week. Return to the emergency department with new or worsening symptoms. Such as fevers, chills, chest pain, shortness of breath, nausea, vomiting, dizziness, headache, vision changes, lethargy In case of emergency call [address] scan findings were concerning for prior pulmonary emboli and suggestive of chronic thromboembolic disease, therefore any anticoagulant called Danny will be sent to her pharmacy, please take this as prescribed. This is a blood thinner, if you sustain a fall or trauma while taking this please be evaluated by medical provider. Also if you note blood in stool or you start vomiting blood or note bleeding anywhere it is important you be evaluated. Stop aspirin. Your kidney function was elevated however your scheduled for dialysis tomorrow it is important that you go to your appointment because your received contrast dye you need to be dialyzed tomorrow. CT/CT angio chest PE protocol IMPRESSION: ? 1. No evidence of acute central or segmental pulmonary embolus. 2. Findings consistent with prior pulmonary emboli and suggestive of chronic thromboembolic disease with a couple bands/webs within segmental pulmonary arterial branches in the lower lobes, mildly dilated main pulmonary arteries and a slightly mosaic attenuation in the pulmonary parenchyma particularly in the upper lobes. Correlate with history of prior pulmonary embolus. 3. Minimal bibasilar atelectasis. No airspace consolidation. ? VTE: negative Prescriptions: New Eliquis DVT-PE Treat 30D Start 5 mg (74 tabs) tablets,dose pack 5 mg PO BID Qty: 74 0RF No Action trazodone 50 mg tablet 1 tab PO BEDTIME clonazepam 1 mg tablet 1 tab PO BEDTIME PRN (Reason: Sleep) quetiapine 100 mg tablet 1 tab PO BEDTIME levothyroxine 100 mcg tablet 1 tab PO DAILY gabapentin 100 mg capsule 1 cap PO TID aripiprazole 2 mg tablet 1 tab PO DAILY sevelamer carbonate [Renvela] 800 mg tablet 3 tab PO TID midodrine 5 mg tablet 5 mg PO 5XD hydrocodone-acetaminophen 5-325 mg tablet 1 - 2 tab PO Q6H PRN (Reason: pain) Qty: 15 0RF acetaminophen 325 mg capsule 325 mg PO QID PRN aspirin 81 mg tablet,delayed release (DR/EC) 81 mg PO DAILY bisacodyl 5 mg tablet,delayed release (DR/EC) 5 mg PO BEDTIME guaifenesin 200 mg/5 mL liquid 200 mg PO Q4H PRN lidocaine 3.75 % cream 1 appl topical BID lidocaine [Lidoderm] 5 % adhesive patch,medicated 1 patch topical DAILY Rx Instructions: leave on most painful area for up to 12 hrs Narcan 4 mg/actuation spray,non-aerosol 4 mg intranasal Q3M PRN Rx Instructions: spray 1 dose into ONE nostril; alternate nostrils w each dose until help arrives sevelamer carbonate [Renvela] 0.8 gram powder in packet 0.8 g PO TID Rx Instructions: must administer with a meal/food senna 8.6 mg capsule 8.6 mg PO BEDTIME quetiapine [Seroquel] 25 mg tablet 25 mg PO BEDTIME ondansetron HCl [Zofran] 4 mg tablet 4 mg PO Q8H diclofenac sodium 1 % gel 2 g topical QID Rx Instructions: apply to single elbow, wrist or hand; for hand includes palm/fingers/back of hand Referrals: Hollie Warner MD [Primary Care Provider] - 2 days
[2022-06-19 17:58] VITALS: BP 131/67; PULSE 85; RESP 16; TEMP 36.9; O2SAT 100
[2022-06-19 18:30] LABS: MANUAL DIFF FLAG NO
[2022-06-19 18:34] LABS: Basophils Percent Auto 0.3 % (0-2); Eosinophils Absolute Auto 0.1 X10*3/uL (0.0-0.4); Eosinophils Percent Auto 2.3 % (0-4); Hematocrit 28.9 % (37.0-47.0); Hemoglobin 9.2 g/dl (12.0-16.0); Imm Gran Abs Auto 0.01 X10*3/uL (0.00-0.03); Imm Gran Pct Auto 0.3 % (0.0-0.4); Lymphocytes Absolute Auto 0.6 X10*3/uL (1.2-4.9); Lymphocytes Percent Auto 16.4 % (20-40); Mean Corpuscular HGB Conc 31.8 g/dl (31.0-35.0); Mean Corpuscular Hemoglobin 32.5 pg (27.0-33.0); Mean Corpuscular Volume 102.1 fL (80.0-98.0); Mean Platelet Volume 9.7 fL (9.4-12.3); Monocytes Absolute Auto 0.3 X10*3/uL (0.1-1.2); Monocytes Percent Auto 8.8 % (2-11); Neutrophils Absolute Auto 2.6 x10*3/uL (2.0-8.3); Neutrophils Percent Auto 71.9 % (45-73); Red Blood Count 2.83 X10*6/uL (4.20-5.50); Red Cell Distribution Width 15.3 % (11.0-16.0); White Blood Count 3.5 X10*3/uL (4.8-10.8)
[2022-06-19 18:37] LABS: Platelet Count 94 X10*3/uL (160-400)
[2022-06-19 18:42] LABS: D Dimer High Sensitivity 1112 NG/ML
[2022-06-19 18:49] LABS: COVID-19 Test Negative (Negative); IDNOW Serial# 16C4AD1C
[2022-06-19 19:03] LABS: Alanine Aminotransferase 15 U/L (0-31); Albumin Level 3.9 g/dL (3.5-5.0); Alkaline Phosphatase 56 U/L (39-117); Anion Gap 17 (12-20); Aspartate Amino Transferase 17 U/L (5-31); Bilirubin Total 0.5 mg/dL (0.0-1.0); Blood Urea Nitrogen 38 mg/dL (9-16); Calcium 7.6 mg/dL (8.4-10.2); Carbon Dioxide 32 mmol/L (22-29); Chloride 100 mmol/L (96-108); Creatinine Clr Calc Pharmacy 8.2; Estimated Glomerular Filt Rate 7; Glucose Random 89 mg/dL (60-115); Magnesium 2.1 mg/dL (1.6-2.6); Potassium 5.5 mmol/L (3.3-5.1); Sodium 143 mmol/L (135-145); Total Protein 5.9 g/dL (6.5-8.0)
[2022-06-19 19:15] LABS: Troponin-I High Sensitivity 9.8 ng/L (<3.5-17.0)
[2022-06-19] MEDS: Sodium Zirconium Cyclosilicate 10 GM POWD.PACK PO (19:58)
[2022-06-19] MEDS: iohexoL 350 MG/ML 100 ML INFUS..BTL IV (20:38)
[2022-06-19 21:36] LABS: Troponin-I High Sensitivity 13.1 ng/L (<3.5-17.0)
[2022-06-19 21:47] VITALS: BP 132/67; PULSE 83; RESP 16; TEMP 36.7; O2SAT 96
[2022-06-19 21:54] LABS: Appearance Urine Clear; Color Urine Yellow; Glucose Urine UA Negative (Negative); Leukocyte Esterase Urine Moderate (2+) (Negative); Nitrite Urine Negative (Negative); PH >= 9.0 (5.0-9.0); Specific Gravity - Urine 1.015 (1.005-1.025); UMIC TRIGGER UACC YES; Urine Blood Negative (Negative); Urine Ketones Negative (Negative); Urine Protein 300 (3+) mg/dL (Neg-Trace)
[2022-06-19 21:59] LABS: Bacteria Urine None Seen (None Seen); Hyaline Casts Urine 0-2 /LPF (0-2); RBC Urine 0-2 /HPF (0-2); UACC Culture Trigger YES; WBC Urine 21-50 /HPF (0-5)
[2022-06-19 22:46] LABS: B Type Natriuretic Peptide 655 pg/mL (<100)
[2022-06-19 22:58] LABS: INTERNATIONAL NORM RATIO 1.1 (0.9-1.1); Prothrombin Time 12.5 SEC (10.0-13.1)
[2022-06-19 23:27] LABS: Alanine Aminotransferase 14 U/L (0-31); Albumin Level 3.8 g/dL (3.5-5.0); Alkaline Phosphatase 56 U/L (39-117); Anion Gap 19 (12-20); Aspartate Amino Transferase 16 U/L (5-31); Bilirubin Total 0.4 mg/dL (0.0-1.0); Blood Urea Nitrogen 37 mg/dL (9-16); Calcium 7.5 mg/dL (8.4-10.2); Carbon Dioxide 29 mmol/L (22-29); Chloride 99 mmol/L (96-108); Creatinine Clr Calc Pharmacy 7.7; Estimated Glomerular Filt Rate 7; Glucose Random 120 mg/dL (60-115); Potassium 4.5 mmol/L (3.3-5.1); Sodium 142 mmol/L (135-145); Total Protein 5.8 g/dL (6.5-8.0)
--- NOTE | 2022-06-19 23:32 | PC.NURSE ---
Jaimie called at 2305 for a bls transfer back to [place] [facility] per Laieny LUBIN,ETA of 20Mins
[2022-06-19] MEDS: Apixaban 5 MG TABLET PO (23:34)
== END 2022-06-19 23:47 | disposition skilled nursing facility (03) ==
PROVIDERS: Physician Assistant; Emergency Provider Internal Medicine; PCP Internal Medicine
DX: R07.89 Other chest pain (principal); R06.02 Shortness of breath; I74.9 Embolism and thrombosis of unspecified artery; M54.2 Cervicalgia; Z20.822 Contact with and (suspected) exposure to COVID-19; Z79.899 Other long term (current) drug therapy
CPT/HCPCS: 36415; 71045; 71275; 80053; 81001; 83735; 83880; 84484; 85025; 85379; 85610; 87086; 87635; 93005; 99284; Q9967

== ENCOUNTER 2022-06-22 04:50 | Emergency (ER) | payer MEDICARE, MEDICAID, SELFPAY ==
[2022-06-22 04:57] VITALS: BP 132/78; PULSE 80; O2SAT 95; BMI 28.1
--- NOTE | 2022-06-22 05:01 | ED.CHESTPAIN ---
HPI - Chest Pain General Chief Complaint: Chest Pain Stated Complaint: cp Time Seen by Provider: 06/22/22 05:01 Source: patient Mode of arrival: ambulatory Limitations: no limitations History of Present Illness HPI narrative: 66-year-old coming from senior care facility, past medical history significant for anemia, asthma, acute pneumothorax, atrial fibrillation, GERD, end-stage chronic kidney disease on HD (friday, , friday), depression, bipolar disorder, hypertension, hyperlipidemia, hypothyroidism, pulmonary hypertension diagnosed with a PE 2 days ago. REturns with continued chest pain. Patient states pain had resolved around 04:00 o'clock she was lying in bed she stated the pain came back she describes it as chest pain she has a 0 Quill 5 its pressure she denies any falls or injuries or anything new she denies any shortness of breath. Related Data Home Medications Medication Instructions Recorded Confirmed aripiprazole 2 mg tablet 1 tab PO DAILY 06/05/21 09/12/21 clonazepam 1 mg tablet 1 tab PO BEDTIME PRN Sleep 06/05/21 09/12/21 gabapentin 100 mg capsule 1 cap PO TID 06/05/21 09/12/21 levothyroxine 100 mcg tablet 1 tab PO DAILY 06/05/21 09/12/21 quetiapine 100 mg tablet 1 tab PO BEDTIME 06/05/21 09/12/21 sevelamer carbonate 800 mg tablet 3 tab PO TID 06/05/21 09/12/21 (Renvela) trazodone 50 mg tablet 1 tab PO BEDTIME 06/05/21 09/12/21 midodrine 5 mg tablet 5 mg PO 5XD 06/06/21 09/12/21 acetaminophen 325 mg capsule 325 mg PO QID PRN 09/12/21 aspirin 81 mg tablet,delayed 81 mg PO DAILY 09/12/21 release bisacodyl 5 mg tablet,delayed 5 mg PO BEDTIME 09/12/21 release diclofenac sodium 1 % topical gel 2 g topical QID 09/12/21 guaifenesin 200 mg/5 mL oral liquid 200 mg PO Q4H PRN 09/12/21 lidocaine 3.75 % topical cream 1 appl topical BID 09/12/21 lidocaine 5 % topical patch 1 patch topical DAILY 09/12/21 (Lidoderm) naloxone 4 mg/actuation nasal 4 mg intranasal Q3M PRN 09/12/21 spray (Narcan) ondansetron HCl 4 mg tablet 4 mg PO Q8H 09/12/21 (Zofran) quetiapine 25 mg tablet (Seroquel) 25 mg PO BEDTIME 09/12/21 sennosides 8.6 mg capsule (senna) 8.6 mg PO BEDTIME 09/12/21 sevelamer carbonate 0.8 gram oral 0.8 g PO TID 09/12/21 powder packet (Renvela) Previous Rx's Medication Instructions Recorded hydrocodone 5 mg-acetaminophen 325 1 - 2 tab PO Q6H PRN pain #15 tabs 09/20/21 mg tablet apixaban 5 mg (74 tabs) tablets in 5 mg PO BID #74 ea 06/19/22 a dose pack (Eliquis DVT-PE Treat 30D Start) Allergies Allergy/AdvReac Type Severity Reaction Status Date / Time adhesive tape Allergy Unknown Verified 02/02/22 09:11 Penicillins [PCN] Allergy Unknown Verified 09/20/21 06:31 Sulfa (Sulfonamide Allergy Unknown Verified 09/20/21 06:31 Antibiotics) Review of Systems Review of Systems: Review of systems: General: Patient denies any fever chills recent illness or falls Musculoskeletal: Denies back pain or body aches or other injuries HEENT: denies headache, runny nose, ear pain Respiratory: denies shortness of breath, cough Cardiovascular: chest pain no palpitations : denies dysuria, frequency Abdomen: no nausea vomiting denies abdominal pain Extremities: no swelling, no pain Skin: no diaphoresis Yes all other systems are reviewed and are negative PMFSH Past Medical History Medical History Acute pneumothorax Afib Aggressive behavior Anemia Anemia, chronic renal failure Asthma AV fistula Bipolar 1 disorder Depression Dysphagia End stage chronic kidney disease GERD without esophagitis HTN (hypertension) Hyperlipidemia Hypothyroidism Interstitial pulmonary disease Osteoporosis Pleural effusion Pulmonary hypertension Pyelonephritis Social History Social History Alcohol intake: unknown Patient Tobacco Use Status: Never used Tobacco Advance Directives: Yes Advance Directives on File: Yes Advance Directives Date on File: 06/05/21 Physical Exam Vital Signs: Vital Signs: Last Vital Signs Temp 97.8 F 06/22/22 06:02 Pulse 140 H 06/22/22 06:02 Resp 14 06/22/22 06:02 BP 133/74 06/22/22 06:02 Pulse Ox 99 06/22/22 06:02 O2 Del Method 06/22/22 06:02 O2 Flow Rate 2 06/22/22 06:02 BMI result Body Mass Index 28.1 Vital signs stable Appearance: Alert.? Oriented X3.? No acute distress.? Head: Normocephalic, atraumatic, no step-offs or deformities Eyes: Pupils equal, round and reactive to light.? ENT: Pharynx normal.? Neck: Normal inspection.? Neck supple.? CVS: Normal heart rate and rhythm.? Pulses normal.? Respiratory: No respiratory distress.? Breath sounds normal.? Abdomen: Soft and nontender.? Skin: Skin warm and dry.? Normal skin color.? Normal skin turgor.? Extremities: No lower extremity edema.? No calf ttp, negative enid b/l. Global weakness + fistual normal on left upper extremity Neuro: Oriented X 3.? No motor deficit.? No sensory deficit. CN 2-12 intact MDM - Chest Pain MDM Narrative Medical decision making narrative: Patient with atypical story of chest pain she states she has a sharp pain while at rest the symptoms started she was not exerting herself she does have dialysis today I will get the labs that were done and make sure there is no acute ischemia. 0615 Patient still pending troponin. I will get 3 hour troponin as well I will sign out pending labs. Differential Diagnosis Differential diagnosis: Likely chest pain Medical Records Data Attestation: I reviewed the patient's medical records. Lab Data Attestation: I reviewed the patient's lab results. Result diagrams: 06/22/22 05:59 06/22/22 05:59 Labs: Lab Results 06/22/22 Range/Units 05:59 WBC 3.7 L (4.8-10.8) X10*3/uL RBC 2.88 L (4.20-5.50) X10*6/uL Hgb 9.3 L (12.0-16.0) g/dl Hct 29.3 L (37.0-47.0) % MCV 101.7 H (80.0-98.0) fL MCH 32.3 (27.0-33.0) pg MCHC 31.7 (31.0-35.0) g/dl RDW 14.9 (11.0-16.0) % Plt Count 106 L (160-400) X10*3/uL MPV 9.6 (9.4-12.3) fL Immature Gran % (Auto) 0.3 (0.0-0.4) % Neut % (Auto) 53.5 (45-73) % Lymph % (Auto) 31.4 (20-40) % Bartholomew % (Auto) 12.4 H (2-11) % Eos % (Auto) 1.9 (0-4) % Baso % (Auto) 0.5 (0-2) % Lymph # (Auto) 1.2 (1.2-4.9) X10*3/uL Bartholomew # (Auto) 0.5 (0.1-1.2) X10*3/uL Eos # (Auto) 0.1 (0.0-0.4) X10*3/uL Baso # (Auto) 0.0 (0.0-0.2) X10*3/uL Abs Immat Gran (auto) 0.01 (0.00-0.03) X10*3/uL Absolute Neuts (auto) 2.0 (2.0-8.3) x10*3/uL Absolute Nucleated RBC 0.000 (0.0-0.012) X10*3/uL Nucleated RBC % (auto) 0.0 (0.0-0.2) /100WBC ECG Data ECG #1: Attestation: I personally reviewed and interpreted this ECG as follows: ECG interpretation date: 06/22/22 ECG interpretation time: 05:20 Prior ECG tracings: available for review Interpretation: Rate 80 RBBB pattern no signs of ischemia no change from previous more artifact Discharge Plan Discharge Clinical Impression: Chest pain Patient Disposition: Still a Patient Instructions: Chest Pain (ED) Additional Instructions: Please call follow-up with your doctor if you have any other concerns please do not hesitate to come back to emergency department. Prescriptions: No Action trazodone 50 mg tablet 1 tab PO BEDTIME clonazepam 1 mg tablet 1 tab PO BEDTIME PRN (Reason: Sleep) quetiapine 100 mg tablet 1 tab PO BEDTIME levothyroxine 100 mcg tablet 1 tab PO DAILY gabapentin 100 mg capsule 1 cap PO TID aripiprazole 2 mg tablet 1 tab PO DAILY sevelamer carbonate [Renvela] 800 mg tablet 3 tab PO TID midodrine 5 mg tablet 5 mg PO 5XD hydrocodone-acetaminophen 5-325 mg tablet 1 - 2 tab PO Q6H PRN (Reason: pain) Qty: 15 0RF Eliquis DVT-PE Treat 30D Start 5 mg (74 tabs) tablets,dose pack 5 mg PO BID Qty: 74 0RF acetaminophen 325 mg capsule 325 mg PO QID PRN aspirin 81 mg tablet,delayed release (DR/EC) 81 mg PO DAILY bisacodyl 5 mg tablet,delayed release (DR/EC) 5 mg PO BEDTIME guaifenesin 200 mg/5 mL liquid 200 mg PO Q4H PRN lidocaine 3.75 % cream 1 appl topical BID lidocaine [Lidoderm] 5 % adhesive patch,medicated 1 patch topical DAILY Rx Instructions: leave on most painful area for up to 12 hrs Narcan 4 mg/actuation spray,non-aerosol 4 mg intranasal Q3M PRN Rx Instructions: spray 1 dose into ONE nostril; alternate nostrils w each dose until help arrives sevelamer carbonate [Renvela] 0.8 gram powder in packet 0.8 g PO TID Rx Instructions: must administer with a meal/food senna 8.6 mg capsule 8.6 mg PO BEDTIME quetiapine [Seroquel] 25 mg tablet 25 mg PO BEDTIME ondansetron HCl [Zofran] 4 mg tablet 4 mg PO Q8H diclofenac sodium 1 % gel 2 g topical QID Rx Instructions: apply to single elbow, wrist or hand; for hand includes palm/fingers/back of hand
[2022-06-22 05:02] VITALS: BP 153/72; PULSE 80; RESP 12; TEMP 36.6; O2SAT 99
[2022-06-22 06:02] VITALS: BP 133/74; PULSE 140; RESP 14; TEMP 36.6; O2SAT 99
[2022-06-22 06:05] LABS: Basophils Percent Auto 0.5 % (0-2); Eosinophils Absolute Auto 0.1 X10*3/uL (0.0-0.4); Eosinophils Percent Auto 1.9 % (0-4); Hematocrit 29.3 % (37.0-47.0); Hemoglobin 9.3 g/dl (12.0-16.0); Imm Gran Abs Auto 0.01 X10*3/uL (0.00-0.03); Imm Gran Pct Auto 0.3 % (0.0-0.4); Lymphocytes Absolute Auto 1.2 X10*3/uL (1.2-4.9); Lymphocytes Percent Auto 31.4 % (20-40); MANUAL DIFF FLAG NO; Mean Corpuscular HGB Conc 31.7 g/dl (31.0-35.0); Mean Corpuscular Hemoglobin 32.3 pg (27.0-33.0); Mean Corpuscular Volume 101.7 fL (80.0-98.0); Mean Platelet Volume 9.6 fL (9.4-12.3); Monocytes Absolute Auto 0.5 X10*3/uL (0.1-1.2); Monocytes Percent Auto 12.4 % (2-11); Neutrophils Percent Auto 53.5 % (45-73); Platelet Count 106 X10*3/uL (160-400); Red Blood Count 2.88 X10*6/uL (4.20-5.50); Red Cell Distribution Width 14.9 % (11.0-16.0); White Blood Count 3.7 X10*3/uL (4.8-10.8)
[2022-06-22 06:24] LABS: Troponin-I High Sensitivity 11.9 ng/L (<3.5-17.0)
[2022-06-22] MEDS: 0.9 % Sodium Chloride 1,000 ML 999 ML IV (06:37)
[2022-06-22 06:46] LABS: Alanine Aminotransferase 13 U/L (0-31); Albumin Level 3.8 g/dL (3.5-5.0); Alkaline Phosphatase 54 U/L (39-117); Anion Gap 21 (12-20); Aspartate Amino Transferase 16 U/L (5-31); Bilirubin Direct 0.2 mg/dL (0.0-0.5); Bilirubin Total 0.4 mg/dL (0.0-1.0); Blood Urea Nitrogen 41 mg/dL (9-16); Calcium 7.5 mg/dL (8.4-10.2); Carbon Dioxide 25 mmol/L (22-29); Chloride 100 mmol/L (96-108); Creatinine Clr Calc Pharmacy 9.4; Estimated Glomerular Filt Rate 7; Glucose Random 79 mg/dL (60-115); Lipase 65 U/L (8-78); Potassium 4.8 mmol/L (3.3-5.1); Sodium 141 mmol/L (135-145); Total Protein 5.8 g/dL (6.5-8.0)
[2022-06-22 06:52] VITALS: PULSE 86
[2022-06-22 08:21] VITALS: BP 134/73; PULSE 74; RESP 12; O2SAT 99
[2022-06-22 10:19] LABS: Troponin-I High Sensitivity 12.1 ng/L (<3.5-17.0)
[2022-06-22 12:07] VITALS: BP 136/70; PULSE 83; RESP 17; O2SAT 98
--- NOTE | 2022-06-22 13:25 | PC.NURSE ---
Jaimie called at 1325 for a bls transfer back to [facility]. Ems booked for 1700.Thais aware
== END 2022-06-22 16:39 | disposition home or self-care (01) ==
PROVIDERS: Emergency Medicine; Emergency Provider Student in an Organized Health Care Education/Training Program; PCP Internal Medicine
DX: R07.9 Chest pain, unspecified (principal); I12.0 Hypertensive chronic kidney disease with stage 5 chronic kidney disease or end stage renal disease; N18.6 End stage renal disease; Z99.2 Dependence on renal dialysis; I48.91 Unspecified atrial fibrillation; Z79.01 Long term (current) use of anticoagulants; Z79.82 Long term (current) use of aspirin; Z79.899 Other long term (current) drug therapy
CPT/HCPCS: 36415; 71046; 80048; 80076; 83690; 84484; 85025; 93005; 96360; 96361; 99284; 99285

== ENCOUNTER 2022-07-29 23:27 | Emergency (ER) | payer MEDICARE, MEDICAID, SELFPAY ==
--- NOTE | ~2022-07-29 | XR_ITS ---
EXAMINATION: XR CHEST CLINICAL INFORMATION: Back pain. COMPARISON: 06/22/2022 TECHNIQUE: Frontal view of the chest was obtained. FINDINGS: Vascular stent is again seen in the left upper arm. Cardiac silhouette is unchanged. Calcific atherosclerosis is present in the thoracic aorta. Prominence of the pulmonary arteries is unchanged. No consolidation, pneumothorax, or pleural effusion. Mild left basilar atelectasis. Mild degenerative spondylosis in the thoracic spine. Sclerotic focus in the left humeral head/neck is unchanged. No acute osseous findings. XR/XR chest 1V IMPRESSION: Mild left basilar atelectasis. No acute pulmonary findings. Mild degenerative spondylosis in the thoracic spine.
--- NOTE | ~2022-07-29 | CT_ITS ---
EXAMINATION: CT ANGIOGRAM CHEST CLINICAL INFORMATION: Sudden onset upper back pain. COMPARISON: 06/19/2022 TECHNIQUE: Multiple axial images were obtained through the chest after the administration of 70 mL of Omnipaque 350 intravenous contrast. Extensive vascular post-processing including two-dimensional and three-dimensional reformatted images were created and reviewed on an independent workstation. This CT examination was performed using dose optimization techniques as appropriate, variously including the following: *Automated exposure control *Adjustment of mA and/or kV according to patient size (this includes techniques or standardized protocols for targeted exams where dose is matched to indication/reason for exam; i.e. extremities or head) *Use of iterative reconstruction technique DLP: 313 mGy-cm FINDINGS: Vasculature: Thoracic aorta is normal in caliber with a diameter of 3.1 cm at the level of the tubular segment, interlaminar of up to 2.9 cm at the arch, and the diameter measuring up to 2.3 cm and the majority of the descending aorta. No appreciable intramural hematomas. No dissections. Mild calcific atherosclerosis. The pulmonary arteries appear patent without appreciable findings of pulmonary emboli on these images. The study was not optimized for visualization of the pulmonary arteries, though the main pulmonary arteries appear mildly enlarged (3 cm on the left and 2.8 cm on the right). Heart is normal in size. Minimal calcific atherosclerosis in the coronary arteries. A stent is partially seen within the left axillary vein. Multifocal narrowing and ectasia of the left axillary vein is likely related to use for dialysis. Nonvascular findings: Linear pleural parenchymal scarring and atelectasis are evident in the lower lobes dependently. No dense airspace consolidation. Central airways are clear. A few calcified granulomas are identified. No suspicious noncalcified pulmonary nodules are identified. No pleural effusion or pneumothorax. No pericardial effusion. No significant mediastinal or hilar adenopathy. Thyroid gland is diminutive. The [place] kidneys are atrophic, partially imaged. No recommended imaging follow-up. A 1.8 cm, -1 Hounsfield unit nodule at the left adrenal gland is most consistent with a lipid rich adrenal adenoma. Mild scoliotic curvature the thoracolumbar spine. Mild to moderate multilevel level degenerative disc disease. Multiple healed right rib fractures. No acute rib fractures are identified. CT/CT angio chest aorta IMPRESSION: 1. No acute vascular abnormalities are identified in the chest. No evidence of dissection or intramural hematomas. 2. Dependent atelectasis in the lungs. No acute pulmonary findings. 3. A 1.8 cm lipid rich, benign left adrenal adenoma. 4. Mild to moderate multilevel degenerative disc disease in the thoracic spine. No acute osseous findings. Fleischner guidelines were followed.
--- NOTE | 2022-07-29 00:22 | ECG_ITS ---
Test Reason : BACKPAIN Blood Pressure : / mmHG Vent. Rate : 094 BPM Atrial Rate : 094 BPM P-R Int : 198 ms QRS Dur : 104 ms QT Int : 378 ms P-R-T Axes : 061 027 045 degrees QTc Int : 472 ms Normal sinus rhythm Incomplete right bundle branch block Abnormal ECG When compared with ECG of 22-JUN-2022 05:07, No significant changes seen Referred By: Benny Raymond Electronically Signed By:SOLO FUENTES MD
[2022-07-29 23:36] VITALS: BP 136/76; BP 157/81; PULSE 93; PULSE 96; RESP 16; TEMP 36.7; O2SAT 95; O2SAT 97; BMI 36.5
[2022-07-29 23:44] VITALS: BP 157/81; PULSE 93; RESP 18; TEMP 36.7; O2SAT 97
--- NOTE | 2022-07-29 23:46 | PC.NURSE ---
EKG performed, NSR, HR 93. Provider informed.
--- NOTE | 2022-07-30 00:17 | ED_ITS ---
HPI - General Adult General Chief complaint: General Medical Stated complaint: back pain from snf Source: patient, EMS and old records reviewed History of Present Illness HPI narrative: 58-year-old female from local shelter facility presents complaining of mid back pain which started several hours ago. Since onset, it has worsened. The patient denies any other symptoms such as shortness of breath, chest pain or sweatiness. Patient denies having any pain similar to this previously. There has been no recent falls or injuries to that area. Onset (ago): day(s) (1) Location: back Radiation: non-radiation Severity: moderate Quality: aching and dull Pain Consistency: constant Relieving factors: none Exacerbating factors: none Related Data Home Medications Medication Instructions Recorded Confirmed aripiprazole 2 mg tablet 1 tab PO DAILY 06/05/21 09/12/21 clonazepam 1 mg tablet 1 tab PO BEDTIME PRN Sleep 06/05/21 09/12/21 gabapentin 100 mg capsule 1 cap PO TID 06/05/21 09/12/21 levothyroxine 100 mcg tablet 1 tab PO DAILY 06/05/21 09/12/21 quetiapine 100 mg tablet 1 tab PO BEDTIME 06/05/21 09/12/21 sevelamer carbonate 800 mg tablet 3 tab PO TID 06/05/21 09/12/21 (Renvela) trazodone 50 mg tablet 1 tab PO BEDTIME 06/05/21 09/12/21 midodrine 5 mg tablet 5 mg PO 5XD 06/06/21 09/12/21 acetaminophen 325 mg capsule 325 mg PO QID PRN 09/12/21 aspirin 81 mg tablet,delayed 81 mg PO DAILY 09/12/21 release bisacodyl 5 mg tablet,delayed 5 mg PO BEDTIME 09/12/21 release diclofenac sodium 1 % topical gel 2 g topical QID 09/12/21 guaifenesin 200 mg/5 mL oral liquid 200 mg PO Q4H PRN 09/12/21 lidocaine 3.75 % topical cream 1 appl topical BID 09/12/21 lidocaine 5 % topical patch 1 patch topical DAILY 09/12/21 (Lidoderm) naloxone 4 mg/actuation nasal 4 mg intranasal Q3M PRN 09/12/21 spray (Narcan) ondansetron HCl 4 mg tablet 4 mg PO Q8H 09/12/21 (Zofran) quetiapine 25 mg tablet (Seroquel) 25 mg PO BEDTIME 09/12/21 sennosides 8.6 mg capsule (senna) 8.6 mg PO BEDTIME 09/12/21 sevelamer carbonate 0.8 gram oral 0.8 g PO TID 09/12/21 powder packet (Renvela) Previous Rx's Medication Instructions Recorded hydrocodone 5 mg-acetaminophen 325 1 - 2 tab PO Q6H PRN pain #15 tabs 09/20/21 mg tablet apixaban 5 mg (74 tabs) tablets in 5 mg PO BID #74 ea 06/19/22 a dose pack (Eliquis DVT-PE Treat 30D Start) Allergies Allergy/AdvReac Type Severity Reaction Status Date / Time adhesive tape Allergy Unknown Verified 02/02/22 09:11 Penicillins [PCN] Allergy Unknown Verified 09/20/21 06:31 Sulfa (Sulfonamide Allergy Unknown Verified 09/20/21 06:31 Antibiotics) Review of Systems Review of Systems: Yes all other systems are reviewed and are negative Constitutional: Constitutional: Denies chills, Denies fever(s) and Denies frequent falls Eyes: Eyes: Reports change in vision and Reports diplopia ENT: Reports system reviewed and no additional complaints, except as documented Cardiovascular: Cardiovascular: Denies Abdominal Distension, Denies Epigastric Pain, Denies syncope, Denies edema, Denies irregular heart rhythm, Denies lightheadedness, Denies Loss of Consciousness and Denies dyspnea Respiratory: Respiratory: Reports no additional respiratory complaints and Denies dyspnea Gastrointestinal: Gastrointestinal: Denies abdominal pain, Denies constipation and Denies diarrhea Genitourinary: Genitourinary: Reports no additional female genitourinary complaints Musculoskeletal: Musculoskeletal: Reports as per HPI, Reports back pain, Denies myalgias and Denies numbness Integumentary/Breasts: Skin/Breast: Denies swelling and Denies jaundice Neurologic: Denies Abnormal speech present, Denies syncope, Denies frequent falls and Denies numbness PMFSH Past Medical History Source: old records reviewed and nursing notes reviewed Medical History Acute pneumothorax Afib Aggressive behavior Anemia Anemia, chronic renal failure Asthma AV fistula Bipolar 1 disorder Depression Dysphagia End stage chronic kidney disease GERD without esophagitis HTN (hypertension) Hyperlipidemia Hypothyroidism Interstitial pulmonary disease Osteoporosis Pleural effusion Pulmonary hypertension Pyelonephritis Social History Social History Alcohol intake: never Patient Tobacco Use Status: Never used Tobacco Smoked in Last 30 Days: No Use of substances other than those prescribed or required for medical reasons: No Advance Directives: Yes Advance Directives on File: Yes Advance Directives Date on File: 06/05/21 Physical Exam ED Vital Signs: Vital Signs - 24 hr 07/29/22 23:36 07/29/22 23:44 07/30/22 00:46 Temperature 98.0 F 98.0 F 98.6 F Pulse Rate 93 93 94 Respiratory Rate 16 18 18 Blood Pressure 157/81 H 157/81 H 154/70 H Pulse Oximetry 97 97 97 Oxygen Delivery Method Room Air Room Air Room Air 07/30/22 01:23 07/30/22 04:29 Temperature 97.5 F Pulse Rate 68 Respiratory Rate 16 17 Blood Pressure 139/86 Pulse Oximetry 96 Oxygen Delivery Method Room Air BMI result Body Mass Index 36.5 Vital signs normal with the exception of slight systolic hypertension Const General: cooperative, acute distress and anxious Nutritional Appearance: underweight Orientation/consciousness: patient oriented x3 HENMT Head: Yes normal to inspection, Yes normocephalic and Yes atraumatic General nose exam: Normal external nose present Face and sinus: Yes normal facial exam Eyes Eyelids: Yes eyelids normal Conjunctivae: conjunctivae normal Sclerae: sclerae normal Neck Neck: Yes normal visual inspection and Yes full ROM Chest Chest palpation & inspection: normal inspection of the chest and no tenderness Resp Effort & Inspection: normal respiratory effort, no audible wheezes, no cough and not labored Cardio Rate: regular rate Rhythm: regular rhythm GI Inspection: Yes normal to inspection Palpation (GI): nontender General: Yes no CVA tenderness Back/Spine/Pelvis Back: no CVA tenderness Cervical Spine: normal cervical lordosis and cervical ROM normal Thoracic/Lumbar Spine: thoracic and lumbar spine normal to inspection Skin General skin exam: no rashes or lesions noted, no mottling and no pallor Neuro General: patient oriented x3 Cranial nerves: Yes CN's II-XII intact bilaterally Speech: No Abnormal speech present Medications Administered Discontinued Medications Generic Name Dose Route Start Last Admin Trade Name Freq PRN Reason Stop Dose Admin Ceftriaxone Sodium 1 gm/ 50 mls @ 100 mls/hr 07/30/22 04:39 07/30/22 05:50 Sodium Chloride IV 07/30/22 05:08 100 mls/hr ONCE ONE Administration Iohexol 70 ml 07/30/22 03:58 07/30/22 03:59 Iohexol 350 Mg/Ml 100 Ml Infus..Btl IV 07/30/22 03:59 70 ml ONCE ONE Administration Morphine Sulfate 4 mg 07/30/22 01:00 07/30/22 01:23 Morphine Sulfate 4 Mg/Ml Cartridge IVPUSH 07/30/22 01:01 4 mg ONCE ONE Administration Protocol Medical Decision Making MDM Narrative Medical decision making narrative: 58-year-old female presents to the emergency department today with upper back pain. The patient complains of back pain in the upper back. Patient has history of renal failure with dialysis. The patient also has a urinary tract infection based on the urinalysis. The patient does have a elevated creatinine from baseline 7.6, and elevated potassium from baseline of 5.7.Consideration must be given to admission for this reason. Medical Records Medical records reviewed: Yes I reviewed the patient's medical records. Lab Data Lab results reviewed: Yes I reviewed the patient's lab results. Lab results narrative: Baseline anemia as well as a baseline creatinine of 7.59. The potassium is mildly elevated at 5.7 however, so this is slightly concerning considering the patient's baseline is at least 1 point lower. Result diagrams: 07/30/22 00:35 07/30/22 00:35 Labs: Lab Results 07/30/22 07/30/22 07/30/22 Range/Units 00:35 00:35 00:35 WBC 5.3 (4.8-10.8) X10*3/uL RBC 2.66 L (4.20-5.50) X10*6/uL Hgb 8.5 L (12.0-16.0) g/dl Hct 27.0 L (37.0-47.0) % MCV 101.5 H (80.0-98.0) fL MCH 32.0 (27.0-33.0) pg MCHC 31.5 (31.0-35.0) g/dl RDW 15.2 (11.0-16.0) % Plt Count 108 L (160-400) X10*3/uL MPV 9.7 (9.4-12.3) fL Immature Gran % (Auto) 0.6 H (0.0-0.4) % Neut % (Auto) 64.5 (45-73) % Lymph % (Auto) 22.2 (20-40) % [place] % (Auto) 10.6 (2-11) % Eos % (Auto) 1.7 (0-4) % Baso % (Auto) 0.4 (0-2) % Lymph # (Auto) 1.2 (1.2-4.9) X10*3/uL [place] # (Auto) 0.6 (0.1-1.2) X10*3/uL Eos # (Auto) 0.1 (0.0-0.4) X10*3/uL Baso # (Auto) 0.0 (0.0-0.2) X10*3/uL Abs Immat Gran (auto) 0.03 (0.00-0.03) X10*3/uL Absolute Neuts (auto) 3.4 (2.0-8.3) x10*3/uL Absolute Nucleated RBC 0.000 (0.0-0.012) X10*3/uL Nucleated RBC % (auto) 0.0 (0.0-0.2) /100WBC D-Dimer High Sensitivty NG/ML Sodium 142 (135-145) mmol/L Potassium 5.7 H (3.3-5.1) mmol/L Chloride 100 (96-108) mmol/L Carbon Dioxide 25 (22-29) mmol/L Anion Gap 23 H (12-20) BUN 61 H (9-16) mg/dL Creatinine 7.59 H* (0.5-1.4) mg/dL Estim Creat Clear Calc 7.7 Estimated GFR 5 Random Glucose 84 (60-115) mg/dL Lactic Acid (0.5-2.0) mmol/L Calcium 7.9 L (8.4-10.2) mg/dL Total Bilirubin 0.7 (0.0-1.0) mg/dL AST 16 (5-31) U/L ALT 15 (0-31) U/L Alkaline Phosphatase 55 (39-117) U/L Troponin I High Sens 11.1 (<3.5-17.0) ng/L Total Protein 6.3 L (6.5-8.0) g/dL Albumin 4.2 (3.5-5.0) g/dL Urine Color Urine Appearance Urine pH (5.0-9.0) Ur Specific [place] (1.005-1.025) Urine Protein (Neg-Trace) mg/dL Urine Glucose (UA) (Negative) mg/dL Urine Ketones (Negative) mg/dL Urine Blood (Negative) Urine Nitrite (Negative) Ur Leukocyte Esterase (Negative) Urine RBC (0-2) /HPF Urine WBC (0-5) /HPF Ur Squamous Epith Cells (0-2) /HPF Urine Bacteria (None Seen) Hyaline Casts (0-2) /LPF 07/30/22 07/30/22 07/30/22 Range/Units 00:37 01:28 05:23 WBC (4.8-10.8) X10*3/uL RBC (4.20-5.50) X10*6/uL Hgb (12.0-16.0) g/dl Hct (37.0-47.0) % MCV (80.0-98.0) fL MCH (27.0-33.0) pg MCHC (31.0-35.0) g/dl RDW (11.0-16.0) % Plt Count (160-400) X10*3/uL MPV (9.4-12.3) fL Immature Gran % (Auto) (0.0-0.4) % Neut % (Auto) (45-73) % Lymph % (Auto) (20-40) % [place] % (Auto) (2-11) % Eos % (Auto) (0-4) % Baso % (Auto) (0-2) % Lymph # (Auto) (1.2-4.9) X10*3/uL [place] # (Auto) (0.1-1.2) X10*3/uL Eos # (Auto) (0.0-0.4) X10*3/uL Baso # (Auto) (0.0-0.2) X10*3/uL Abs Immat Gran (auto) (0.00-0.03) X10*3/uL Absolute Neuts (auto) (2.0-8.3) x10*3/uL Absolute Nucleated RBC (0.0-0.012) X10*3/uL Nucleated RBC % (auto) (0.0-0.2) /100WBC D-Dimer High Sensitivty 750 NG/ML Sodium (135-145) mmol/L Potassium (3.3-5.1) mmol/L Chloride (96-108) mmol/L Carbon Dioxide (22-29) mmol/L Anion Gap (12-20) BUN (9-16) mg/dL Creatinine (0.5-1.4) mg/dL Estim Creat Clear Calc Estimated GFR Random Glucose (60-115) mg/dL Lactic Acid 1.1 (0.5-2.0) mmol/L Calcium (8.4-10.2) mg/dL Total Bilirubin (0.0-1.0) mg/dL AST (5-31) U/L ALT (0-31) U/L Alkaline Phosphatase (39-117) U/L Troponin I High Sens (<3.5-17.0) ng/L Total Protein (6.5-8.0) g/dL Albumin (3.5-5.0) g/dL Urine Color Yellow Urine Appearance Clear Urine pH >= 9.0 (5.0-9.0) Ur Specific [place] 1.010 (1.005-1.025) Urine Protein 100 (2+) H (Neg-Trace) mg/dL Urine Glucose (UA) Negative (Negative) mg/dL Urine Ketones Negative (Negative) mg/dL Urine Blood Trace H (Negative) Urine Nitrite Negative (Negative) Ur Leukocyte Esterase Large (3+) H (Negative) Urine RBC 3-5 H (0-2) /HPF Urine WBC >50 H (0-5) /HPF Ur Squamous Epith Cells 0-2 (0-2) /HPF Urine Bacteria 1+ (None Seen) Hyaline Casts 0-2 (0-2) /LPF ECG Data Attestation: I personally reviewed and interpreted this ECG as follows: Interpretation: Normal sinus rhythm at 94. Borderline first-degree AV block. Right bundle branch block. Discharge Plan Discharge Clinical Impression: UTI (urinary tract infection), Chronic renal failure Patient Disposition: Admitted As Inpatient Prescriptions: No Action trazodone 50 mg tablet 1 tab PO BEDTIME clonazepam 1 mg tablet 1 tab PO BEDTIME PRN (Reason: Sleep) quetiapine 100 mg tablet 1 tab PO BEDTIME levothyroxine 100 mcg tablet 1 tab PO DAILY gabapentin 100 mg capsule 1 cap PO TID aripiprazole 2 mg tablet 1 tab PO DAILY sevelamer carbonate [Renvela] 800 mg tablet 3 tab PO TID midodrine 5 mg tablet 5 mg PO 5XD hydrocodone-acetaminophen 5-325 mg tablet 1 - 2 tab PO Q6H PRN (Reason: pain) Qty: 15 0RF Eliquis DVT-PE Treat 30D Start 5 mg (74 tabs) tablets,dose pack 5 mg PO BID Qty: 74 0RF acetaminophen 325 mg capsule 325 mg PO QID PRN aspirin 81 mg tablet,delayed release (DR/EC) 81 mg PO DAILY bisacodyl 5 mg tablet,delayed release (DR/EC) 5 mg PO BEDTIME guaifenesin 200 mg/5 mL liquid 200 mg PO Q4H PRN lidocaine 3.75 % cream 1 appl topical BID lidocaine [Lidoderm] 5 % adhesive patch,medicated 1 patch topical DAILY Rx Instructions: leave on most painful area for up to 12 hrs Narcan 4 mg/actuation spray,non-aerosol 4 mg intranasal Q3M PRN Rx Instructions: spray 1 dose into ONE nostril; alternate nostrils w each dose until help arrives sevelamer carbonate [Renvela] 0.8 gram powder in packet 0.8 g PO TID Rx Instructions: must administer with a meal/food senna 8.6 mg capsule 8.6 mg PO BEDTIME quetiapine [Seroquel] 25 mg tablet 25 mg PO BEDTIME ondansetron HCl [Zofran] 4 mg tablet 4 mg PO Q8H diclofenac sodium 1 % gel 2 g topical QID Rx Instructions: apply to single elbow, wrist or hand; for hand includes palm/fingers/back of hand
[2022-07-30 00:41] LABS: MANUAL DIFF FLAG NO
[2022-07-30 00:46] VITALS: BP 154/70; PULSE 94; RESP 18; TEMP 37; O2SAT 97
[2022-07-30 00:47] LABS: Basophils Percent Auto 0.4 % (0-2); Eosinophils Absolute Auto 0.1 X10*3/uL (0.0-0.4); Eosinophils Percent Auto 1.7 % (0-4); Hemoglobin 8.5 g/dl (12.0-16.0); Imm Gran Abs Auto 0.03 X10*3/uL (0.00-0.03); Imm Gran Pct Auto 0.6 % (0.0-0.4); Lymphocytes Absolute Auto 1.2 X10*3/uL (1.2-4.9); Lymphocytes Percent Auto 22.2 % (20-40); Mean Corpuscular HGB Conc 31.5 g/dl (31.0-35.0); Mean Corpuscular Volume 101.5 fL (80.0-98.0); Mean Platelet Volume 9.7 fL (9.4-12.3); Monocytes Absolute Auto 0.6 X10*3/uL (0.1-1.2); Monocytes Percent Auto 10.6 % (2-11); Neutrophils Absolute Auto 3.4 x10*3/uL (2.0-8.3); Neutrophils Percent Auto 64.5 % (45-73); Platelet Count 108 X10*3/uL (160-400); Red Blood Count 2.66 X10*6/uL (4.20-5.50); Red Cell Distribution Width 15.2 % (11.0-16.0); White Blood Count 5.3 X10*3/uL (4.8-10.8)
[2022-07-30 00:54] LABS: D Dimer High Sensitivity 750 NG/ML
[2022-07-30 01:16] LABS: Troponin-I High Sensitivity 11.1 ng/L (<3.5-17.0)
[2022-07-30 01:23] VITALS: RESP 16
[2022-07-30] MEDS: Morphine Sulfate 4 MG/ML CARTRIDGE IVPUSH (01:23)
[2022-07-30 01:24] LABS: Alanine Aminotransferase 15 U/L (0-31); Albumin Level 4.2 g/dL (3.5-5.0); Alkaline Phosphatase 55 U/L (39-117); Anion Gap 23 (12-20); Aspartate Amino Transferase 16 U/L (5-31); Bilirubin Total 0.7 mg/dL (0.0-1.0); Blood Urea Nitrogen 61 mg/dL (9-16); Calcium 7.9 mg/dL (8.4-10.2); Carbon Dioxide 25 mmol/L (22-29); Chloride 100 mmol/L (96-108); Creatinine Clr Calc Pharmacy 7.7; Estimated Glomerular Filt Rate 5; Glucose Random 84 mg/dL (60-115); Potassium 5.7 mmol/L (3.3-5.1); Sodium 142 mmol/L (135-145); Total Protein 6.3 g/dL (6.5-8.0)
[2022-07-30 01:35] LABS: Appearance Urine Clear; Color Urine Yellow; Glucose Urine UA Negative (Negative); Leukocyte Esterase Urine Large (3+) (Negative); Nitrite Urine Negative (Negative); PH >= 9.0 (5.0-9.0); UMIC TRIGGER UACC YES; Urine Blood Trace (Negative); Urine Ketones Negative (Negative); Urine Protein 100 (2+) mg/dL (Neg-Trace)
[2022-07-30 01:40] LABS: Bacteria Urine 1+ (None Seen); Hyaline Casts Urine 0-2 /LPF (0-2); Squamous Epithelial Cell Urine 0-2 /HPF (0-2); UACC Culture Trigger YES; WBC Urine >50 /HPF (0-5)
[2022-07-30] MEDS: iohexoL 350 MG/ML 100 ML INFUS..BTL 70 ML IV (03:59)
[2022-07-30 04:29] VITALS: BP 139/86; PULSE 68; RESP 17; TEMP 36.4; O2SAT 96
[2022-07-30 05:36] LABS: Lactic Acid 1.1 mmol/L (0.5-2.0)
[2022-07-30] MEDS: cefTRIAXone sodium 1 GM in 0.9 % Sodium Chloride 50 ML IV (05:50)
[2022-07-30 06:09] VITALS: BP 127/73; PULSE 69; RESP 18; TEMP 37; O2SAT 96
[2022-07-30 06:53] LABS: COVID-19 Test Negative (Negative)
--- NOTE | 2022-07-30 06:56 | ED_ITS ---
HPI - General Adult General Chief complaint: General Medical Stated complaint: back pain from snf Source: patient, EMS and old records reviewed History of Present Illness Location: back Quality: aching and dull Relieving factors: none Exacerbating factors: none Related Data Home Medications Medication Instructions Recorded Confirmed aripiprazole 2 mg tablet 1 tab PO DAILY 06/05/21 09/12/21 clonazepam 1 mg tablet 1 tab PO BEDTIME PRN Sleep 06/05/21 09/12/21 gabapentin 100 mg capsule 1 cap PO TID 06/05/21 09/12/21 levothyroxine 100 mcg tablet 1 tab PO DAILY 06/05/21 09/12/21 quetiapine 100 mg tablet 1 tab PO BEDTIME 06/05/21 09/12/21 sevelamer carbonate 800 mg tablet 3 tab PO TID 06/05/21 09/12/21 (Renvela) trazodone 50 mg tablet 1 tab PO BEDTIME 06/05/21 09/12/21 midodrine 5 mg tablet 5 mg PO 5XD 06/06/21 09/12/21 acetaminophen 325 mg capsule 325 mg PO QID PRN 09/12/21 aspirin 81 mg tablet,delayed 81 mg PO DAILY 09/12/21 release bisacodyl 5 mg tablet,delayed 5 mg PO BEDTIME 09/12/21 release diclofenac sodium 1 % topical gel 2 g topical QID 09/12/21 guaifenesin 200 mg/5 mL oral liquid 200 mg PO Q4H PRN 09/12/21 lidocaine 3.75 % topical cream 1 appl topical BID 09/12/21 lidocaine 5 % topical patch 1 patch topical DAILY 09/12/21 (Lidoderm) naloxone 4 mg/actuation nasal 4 mg intranasal Q3M PRN 09/12/21 spray (Narcan) ondansetron HCl 4 mg tablet 4 mg PO Q8H 09/12/21 (Zofran) quetiapine 25 mg tablet (Seroquel) 25 mg PO BEDTIME 09/12/21 sennosides 8.6 mg capsule (senna) 8.6 mg PO BEDTIME 09/12/21 sevelamer carbonate 0.8 gram oral 0.8 g PO TID 09/12/21 powder packet (Renvela) Previous Rx's Medication Instructions Recorded hydrocodone 5 mg-acetaminophen 325 1 - 2 tab PO Q6H PRN pain #15 tabs 09/20/21 mg tablet apixaban 5 mg (74 tabs) tablets in 5 mg PO BID #74 ea 06/19/22 a dose pack (Eliquis DVT-PE Treat 30D Start) Allergies Allergy/AdvReac Type Severity Reaction Status Date / Time adhesive tape Allergy Unknown Verified 02/02/22 09:11 Penicillins [PCN] Allergy Unknown Verified 09/20/21 06:31 Sulfa (Sulfonamide Allergy Unknown Verified 09/20/21 06:31 Antibiotics) [facility] Past Medical History Medical History Acute pneumothorax Afib Aggressive behavior Anemia Anemia, chronic renal failure Asthma AV fistula Bipolar 1 disorder Depression Dysphagia End stage chronic kidney disease GERD without esophagitis HTN (hypertension) Hyperlipidemia Hypothyroidism Interstitial pulmonary disease Osteoporosis Pleural effusion Pulmonary hypertension Pyelonephritis Social History Social History Alcohol intake: never Patient Tobacco Use Status: Never used Tobacco Smoked in Last 30 Days: No Use of substances other than those prescribed or required for medical reasons: No Advance Directives: Yes Advance Directives on File: Yes Advance Directives Date on File: 06/05/21 Physical Exam ED Vital Signs: Vital Signs - 24 hr 07/29/22 23:36 07/29/22 23:44 07/30/22 00:46 Temperature 98.0 F 98.0 F 98.6 F Pulse Rate 93 93 94 Respiratory Rate 16 18 18 Blood Pressure 157/81 H 157/81 H 154/70 H Pulse Oximetry 97 97 97 Oxygen Delivery Method Room Air Room Air Room Air 07/30/22 01:23 07/30/22 04:29 07/30/22 06:09 Temperature 97.5 F 98.6 F Pulse Rate 68 69 Respiratory Rate 16 17 18 Blood Pressure 139/86 127/73 Pulse Oximetry 96 96 Oxygen Delivery Method Room Air Room Air BMI result Body Mass Index 36.5 Course Reevaluation(s) Reevaluation #1: Overnight hospitalist agreed to admission. A.M. hospitalist now wants nephrology to eval the patient or consult and opine on the patient's admission vs. discharge. Patient has UTI requiring antibiotics, and has elevated creatinine and K compared to her baseline. Will consult nephrology. Time: 06:57 Medications Administered Discontinued Medications Generic Name Dose Route Start Last Admin Trade Name Merlin PRN Reason Stop Dose Admin Ceftriaxone Sodium 1 gm/ 50 mls @ 100 mls/hr 07/30/22 04:39 07/30/22 06:29 Sodium Chloride IV 07/30/22 05:08 Infused ONCE ONE Infusion Iohexol 70 ml 07/30/22 03:58 07/30/22 03:59 Iohexol 350 Mg/Ml 100 Ml Infus..Btl IV 07/30/22 03:59 70 ml ONCE ONE Administration Morphine Sulfate 4 mg 07/30/22 01:00 07/30/22 01:23 Morphine Sulfate 4 Mg/Ml Cartridge IVPUSH 07/30/22 01:01 4 mg ONCE ONE Administration Protocol Medical Decision Making Lab Data Result diagrams: 07/30/22 00:35 07/30/22 00:35 Labs: Lab Results 07/30/22 07/30/22 07/30/22 Range/Units 00:35 00:35 00:35 WBC 5.3 (4.8-10.8) X10*3/uL RBC 2.66 L (4.20-5.50) X10*6/uL Hgb 8.5 L (12.0-16.0) g/dl Hct 27.0 L (37.0-47.0) % MCV 101.5 H (80.0-98.0) fL MCH 32.0 (27.0-33.0) pg MCHC 31.5 (31.0-35.0) g/dl RDW 15.2 (11.0-16.0) % Plt Count 108 L (160-400) X10*3/uL MPV 9.7 (9.4-12.3) fL Immature Gran % (Auto) 0.6 H (0.0-0.4) % Neut % (Auto) 64.5 (45-73) % Lymph % (Auto) 22.2 (20-40) % [place] % (Auto) 10.6 (2-11) % Eos % (Auto) 1.7 (0-4) % Baso % (Auto) 0.4 (0-2) % Lymph # (Auto) 1.2 (1.2-4.9) X10*3/uL [place] # (Auto) 0.6 (0.1-1.2) X10*3/uL Eos # (Auto) 0.1 (0.0-0.4) X10*3/uL Baso # (Auto) 0.0 (0.0-0.2) X10*3/uL Abs Immat Gran (auto) 0.03 (0.00-0.03) X10*3/uL Absolute Neuts (auto) 3.4 (2.0-8.3) x10*3/uL Absolute Nucleated RBC 0.000 (0.0-0.012) X10*3/uL Nucleated RBC % (auto) 0.0 (0.0-0.2) /100WBC D-Dimer High Sensitivty NG/ML Sodium 142 (135-145) mmol/L Potassium 5.7 H (3.3-5.1) mmol/L Chloride 100 (96-108) mmol/L Carbon Dioxide 25 (22-29) mmol/L Anion Gap 23 H (12-20) BUN 61 H (9-16) mg/dL Creatinine 7.59 H* (0.5-1.4) mg/dL Estim Creat Clear Calc 7.7 Estimated GFR 5 Random Glucose 84 (60-115) mg/dL Lactic Acid (0.5-2.0) mmol/L Calcium 7.9 L (8.4-10.2) mg/dL Total Bilirubin 0.7 (0.0-1.0) mg/dL AST 16 (5-31) U/L ALT 15 (0-31) U/L Alkaline Phosphatase 55 (39-117) U/L Troponin I High Sens 11.1 (<3.5-17.0) ng/L Total Protein 6.3 L (6.5-8.0) g/dL Albumin 4.2 (3.5-5.0) g/dL Urine Color Urine Appearance Urine pH (5.0-9.0) Ur Specific [place] (1.005-1.025) Urine Protein (Neg-Trace) mg/dL Urine Glucose (UA) (Negative) mg/dL Urine Ketones (Negative) mg/dL Urine Blood (Negative) Urine Nitrite (Negative) Ur Leukocyte Esterase (Negative) Urine RBC (0-2) /HPF Urine WBC (0-5) /HPF Ur Squamous Epith Cells (0-2) /HPF Urine Bacteria (None Seen) Hyaline Casts (0-2) /LPF COVID-19 ([facility]) (Negative) COVID-19 Clin Com 07/30/22 07/30/22 07/30/22 Range/Units 00:37 01:28 05:23 WBC (4.8-10.8) X10*3/uL RBC (4.20-5.50) X10*6/uL Hgb (12.0-16.0) g/dl Hct (37.0-47.0) % MCV (80.0-98.0) fL MCH (27.0-33.0) pg MCHC (31.0-35.0) g/dl RDW (11.0-16.0) % Plt Count (160-400) X10*3/uL MPV (9.4-12.3) fL Immature Gran % (Auto) (0.0-0.4) % Neut % (Auto) (45-73) % Lymph % (Auto) (20-40) % [place] % (Auto) (2-11) % Eos % (Auto) (0-4) % Baso % (Auto) (0-2) % Lymph # (Auto) (1.2-4.9) X10*3/uL [place] # (Auto) (0.1-1.2) X10*3/uL Eos # (Auto) (0.0-0.4) X10*3/uL Baso # (Auto) (0.0-0.2) X10*3/uL Abs Immat Gran (auto) (0.00-0.03) X10*3/uL Absolute Neuts (auto) (2.0-8.3) x10*3/uL Absolute Nucleated RBC (0.0-0.012) X10*3/uL Nucleated RBC % (auto) (0.0-0.2) /100WBC D-Dimer High Sensitivty 750 NG/ML Sodium (135-145) mmol/L Potassium (3.3-5.1) mmol/L Chloride (96-108) mmol/L Carbon Dioxide (22-29) mmol/L Anion Gap (12-20) BUN (9-16) mg/dL Creatinine (0.5-1.4) mg/dL Estim Creat Clear Calc Estimated GFR Random Glucose (60-115) mg/dL Lactic Acid 1.1 (0.5-2.0) mmol/L Calcium (8.4-10.2) mg/dL Total Bilirubin (0.0-1.0) mg/dL AST (5-31) U/L ALT (0-31) U/L Alkaline Phosphatase (39-117) U/L Troponin I High Sens (<3.5-17.0) ng/L Total Protein (6.5-8.0) g/dL Albumin (3.5-5.0) g/dL Urine Color Yellow Urine Appearance Clear Urine pH >= 9.0 (5.0-9.0) Ur Specific [place] 1.010 (1.005-1.025) Urine Protein 100 (2+) H (Neg-Trace) mg/dL Urine Glucose (UA) Negative (Negative) mg/dL Urine Ketones Negative (Negative) mg/dL Urine Blood Trace H (Negative) Urine Nitrite Negative (Negative) Ur Leukocyte Esterase Large (3+) H (Negative) Urine RBC 3-5 H (0-2) /HPF Urine WBC >50 H (0-5) /HPF Ur Squamous Epith Cells 0-2 (0-2) /HPF Urine Bacteria 1+ (None Seen) Hyaline Casts 0-2 (0-2) /LPF COVID-19 ([facility]) (Negative) COVID-19 Clin Com 07/30/22 Range/Units 06:36 WBC (4.8-10.8) X10*3/uL RBC (4.20-5.50) X10*6/uL Hgb (12.0-16.0) g/dl Hct (37.0-47.0) % MCV (80.0-98.0) fL MCH (27.0-33.0) pg MCHC (31.0-35.0) g/dl RDW (11.0-16.0) % Plt Count (160-400) X10*3/uL MPV (9.4-12.3) fL Immature Gran % (Auto) (0.0-0.4) % Neut % (Auto) (45-73) % Lymph % (Auto) (20-40) % [place] % (Auto) (2-11) % Eos % (Auto) (0-4) % Baso % (Auto) (0-2) % Lymph # (Auto) (1.2-4.9) X10*3/uL [place] # (Auto) (0.1-1.2) X10*3/uL Eos # (Auto) (0.0-0.4) X10*3/uL Baso # (Auto) (0.0-0.2) X10*3/uL Abs Immat Gran (auto) (0.00-0.03) X10*3/uL Absolute Neuts (auto) (2.0-8.3) x10*3/uL Absolute Nucleated RBC (0.0-0.012) X10*3/uL Nucleated RBC % (auto) (0.0-0.2) /100WBC D-Dimer High Sensitivty NG/ML Sodium (135-145) mmol/L Potassium (3.3-5.1) mmol/L Chloride (96-108) mmol/L Carbon Dioxide (22-29) mmol/L Anion Gap (12-20) BUN (9-16) mg/dL Creatinine (0.5-1.4) mg/dL Estim Creat Clear Calc Estimated GFR Random Glucose (60-115) mg/dL Lactic Acid (0.5-2.0) mmol/L Calcium (8.4-10.2) mg/dL Total Bilirubin (0.0-1.0) mg/dL AST (5-31) U/L ALT (0-31) U/L Alkaline Phosphatase (39-117) U/L Troponin I High Sens (<3.5-17.0) ng/L Total Protein (6.5-8.0) g/dL Albumin (3.5-5.0) g/dL Urine Color Urine Appearance Urine pH (5.0-9.0) Ur Specific [place] (1.005-1.025) Urine Protein (Neg-Trace) mg/dL Urine Glucose (UA) (Negative) mg/dL Urine Ketones (Negative) mg/dL Urine Blood (Negative) Urine Nitrite (Negative) Ur Leukocyte Esterase (Negative) Urine RBC (0-2) /HPF Urine WBC (0-5) /HPF Ur Squamous Epith Cells (0-2) /HPF Urine Bacteria (None Seen) Hyaline Casts (0-2) /LPF COVID-19 ([facility]) Negative (Negative) COVID-19 Clin Com See Note Discharge Plan Discharge Clinical Impression: Chronic renal failure UTI (urinary tract infection) Qualifiers: Urinary tract infection type: site unspecified Hematuria presence: without hematuria Qualified Code(s): N39.0 - Urinary tract infection, site not specified Patient Disposition: Admitted As Inpatient
--- NOTE | 2022-07-30 06:57 | PC.NURSE ---
Fungal rash noted to abdominal fold. DR. Rausch notified, verbal order obtained to apply Nystatin powder to affected area BID.
--- NOTE | 2022-07-30 07:57 | ED.GENADULT ---
HPI - General Adult General Chief complaint: General Medical Stated complaint: back pain from snf Time Seen by Provider: 07/30/22 07:17 Source: patient, EMS and old records reviewed History of Present Illness Location: back Quality: aching and dull Relieving factors: none Exacerbating factors: none Related Data Home Medications Medication Instructions Recorded Confirmed clonazepam 1 mg tablet 1 tab PO DAILY PRN Anxiety 06/05/21 07/30/22 levothyroxine 100 mcg tablet 1 tab PO DAILY 06/05/21 07/30/22 sevelamer carbonate 800 mg tablet 3 tab PO TID 06/05/21 07/30/22 (Renvela) acetaminophen 325 mg capsule 325 mg PO QID PRN Pain 09/12/21 07/30/22 aspirin 81 mg tablet,delayed 81 mg PO DAILY 09/12/21 07/30/22 release bisacodyl 5 mg tablet,delayed 5 mg PO BEDTIME 09/12/21 07/30/22 release diclofenac sodium 1 % topical gel 2 g topical QID 09/12/21 07/30/22 guaifenesin 200 mg/5 mL oral liquid 200 mg PO Q4H PRN Cough 09/12/21 07/30/22 lidocaine 5 % topical patch 1 patch topical DAILY 09/12/21 07/30/22 (Lidoderm) naloxone 4 mg/actuation nasal 4 mg intranasal Q3M PRN overdose 09/12/21 07/30/22 spray (Narcan) quetiapine 25 mg tablet (Seroquel) 75 mg PO BEDTIME 09/12/21 07/30/22 sennosides 8.6 mg capsule (senna) 8.6 mg PO BID PRN Constipation 09/12/21 07/30/22 apixaban 5 mg tablet (Eliquis) 1 tab PO BID 07/30/22 07/30/22 aripiprazole 5 mg tablet 1 tab PO DAILY 07/30/22 07/30/22 atorvastatin 40 mg tablet 1 tab PO DAILY 07/30/22 07/30/22 cholecalciferol (vitamin D3) 25 25 mcg PO DAILY 07/30/22 07/30/22 mcg (1,000 unit) capsule (Vitamin D3) docusate sodium 100 mg capsule 100 mg PO BID 07/30/22 07/30/22 lidocaine-prilocaine 2.5 %-2.5 % 1 appl topical TUTHSA 07/30/22 07/30/22 topical cream midodrine 10 mg tablet 1 tab PO TID 07/30/22 07/30/22 nystatin 100,000 unit/gram topical 1 appl topical BID 07/30/22 07/30/22 powder polyethylene glycol 3350 17 gram 17 g PO DAILY 07/30/22 07/30/22 oral powder packet sodium polystyrene sulfonate 15 30 g PO MOWEFR 07/30/22 07/30/22 gram oral powder packet sumatriptan succinate 25 mg tablet 1 tab PO DAILY 07/30/22 07/30/22 (Imitrex) Allergies Allergy/AdvReac Type Severity Reaction Status Date / Time adhesive tape Allergy Unknown Verified 02/02/22 09:11 Penicillins [PCN] Allergy Unknown Verified 09/20/21 06:31 Sulfa (Sulfonamide Allergy Unknown Verified 09/20/21 06:31 Antibiotics) PMFSH Past Medical History Medical History Acute pneumothorax Afib Aggressive behavior Anemia Anemia, chronic renal failure Asthma AV fistula Bipolar 1 disorder Depression Dysphagia End stage chronic kidney disease GERD without esophagitis HTN (hypertension) Hyperlipidemia Hypothyroidism Interstitial pulmonary disease Osteoporosis Pleural effusion Pulmonary hypertension Pyelonephritis Social History Social History Alcohol intake: never Patient Tobacco Use Status: Never used Tobacco Smoked in Last 30 Days: No Use of substances other than those prescribed or required for medical reasons: No Advance Directives: Yes Advance Directives on File: Yes Advance Directives Date on File: 06/05/21 Physical Exam ED Vital Signs: Vital Signs - 24 hr 07/29/22 23:36 07/29/22 23:44 07/30/22 00:46 Temperature 98.0 F 98.0 F 98.6 F Pulse Rate 93 93 94 Respiratory Rate 16 18 18 Blood Pressure 157/81 H 157/81 H 154/70 H Pulse Oximetry 97 97 97 Oxygen Delivery Method Room Air Room Air Room Air 07/30/22 01:23 07/30/22 04:29 07/30/22 06:09 Temperature 97.5 F 98.6 F Pulse Rate 68 69 Respiratory Rate 16 17 18 Blood Pressure 139/86 127/73 Pulse Oximetry 96 96 Oxygen Delivery Method Room Air Room Air BMI result Body Mass Index 36.5 Medications Administered Discontinued Medications Generic Name Dose Route Start Last Admin Trade Name Merlin PRN Reason Stop Dose Admin Ceftriaxone Sodium 1 gm/ 50 mls @ 100 mls/hr 07/30/22 04:39 07/30/22 06:29 Sodium Chloride IV 07/30/22 05:08 Infused ONCE ONE Infusion Iohexol 70 ml 07/30/22 03:58 07/30/22 03:59 Iohexol 350 Mg/Ml 100 Ml Infus..Btl IV 07/30/22 03:59 70 ml ONCE ONE Administration Morphine Sulfate 4 mg 07/30/22 01:00 07/30/22 01:23 Morphine Sulfate 4 Mg/Ml Cartridge IVPUSH 07/30/22 01:01 4 mg ONCE ONE Administration Protocol Medical Decision Making MDM Narrative Medical decision making narrative: Patient positive UTI. Still making urine. A dose of Rocephin was given. Patient's potassium is 5.7. History of end-stage renal disease normally gets dialysis on Friday. Case discussed with hospitalist team. [place] patient more appropriate to get dialysis and treatment on an outpatient basis. A note was written by Dr. Garcia. Patient's case was then discussed with Dr. Youssef from Nephrology. Arrange for dialysis at 11:30. Case discussed with case management. Patient getting a ride to dialysis at 11:30. In stable condition. Will discharge. Lab Data Result diagrams: 07/30/22 00:35 07/30/22 00:35 Labs: Lab Results 07/30/22 07/30/22 07/30/22 Range/Units 00:35 00:35 00:35 WBC 5.3 (4.8-10.8) X10*3/uL RBC 2.66 L (4.20-5.50) X10*6/uL Hgb 8.5 L (12.0-16.0) g/dl Hct 27.0 L (37.0-47.0) % MCV 101.5 H (80.0-98.0) fL MCH 32.0 (27.0-33.0) pg MCHC 31.5 (31.0-35.0) g/dl RDW 15.2 (11.0-16.0) % Plt Count 108 L (160-400) X10*3/uL MPV 9.7 (9.4-12.3) fL Immature Gran % (Auto) 0.6 H (0.0-0.4) % Neut % (Auto) 64.5 (45-73) % Lymph % (Auto) 22.2 (20-40) % [place] % (Auto) 10.6 (2-11) % Eos % (Auto) 1.7 (0-4) % Baso % (Auto) 0.4 (0-2) % Lymph # (Auto) 1.2 (1.2-4.9) X10*3/uL [place] # (Auto) 0.6 (0.1-1.2) X10*3/uL Eos # (Auto) 0.1 (0.0-0.4) X10*3/uL Baso # (Auto) 0.0 (0.0-0.2) X10*3/uL Abs Immat Gran (auto) 0.03 (0.00-0.03) X10*3/uL Absolute Neuts (auto) 3.4 (2.0-8.3) x10*3/uL Absolute Nucleated RBC 0.000 (0.0-0.012) X10*3/uL Nucleated RBC % (auto) 0.0 (0.0-0.2) /100WBC D-Dimer High Sensitivty NG/ML Sodium 142 (135-145) mmol/L Potassium 5.7 H (3.3-5.1) mmol/L Chloride 100 (96-108) mmol/L Carbon Dioxide 25 (22-29) mmol/L Anion Gap 23 H (12-20) BUN 61 H (9-16) mg/dL Creatinine 7.59 H* (0.5-1.4) mg/dL Estim Creat Clear Calc 7.7 Estimated GFR 5 Random Glucose 84 (60-115) mg/dL Lactic Acid (0.5-2.0) mmol/L Calcium 7.9 L (8.4-10.2) mg/dL Total Bilirubin 0.7 (0.0-1.0) mg/dL AST 16 (5-31) U/L ALT 15 (0-31) U/L Alkaline Phosphatase 55 (39-117) U/L Troponin I High Sens 11.1 (<3.5-17.0) ng/L Total Protein 6.3 L (6.5-8.0) g/dL Albumin 4.2 (3.5-5.0) g/dL Urine Color Urine Appearance Urine pH (5.0-9.0) Ur Specific [place] (1.005-1.025) Urine Protein (Neg-Trace) mg/dL Urine Glucose (UA) (Negative) mg/dL Urine Ketones (Negative) mg/dL Urine Blood (Negative) Urine Nitrite (Negative) Ur Leukocyte Esterase (Negative) Urine RBC (0-2) /HPF Urine WBC (0-5) /HPF Ur Squamous Epith Cells (0-2) /HPF Urine Bacteria (None Seen) Hyaline Casts (0-2) /LPF COVID-19 (TRINIDAD) (Negative) COVID-19 Clin Com 07/30/22 07/30/22 07/30/22 Range/Units 00:37 01:28 05:23 WBC (4.8-10.8) X10*3/uL RBC (4.20-5.50) X10*6/uL Hgb (12.0-16.0) g/dl Hct (37.0-47.0) % MCV (80.0-98.0) fL MCH (27.0-33.0) pg MCHC (31.0-35.0) g/dl RDW (11.0-16.0) % Plt Count (160-400) X10*3/uL MPV (9.4-12.3) fL Immature Gran % (Auto) (0.0-0.4) % Neut % (Auto) (45-73) % Lymph % (Auto) (20-40) % [place] % (Auto) (2-11) % Eos % (Auto) (0-4) % Baso % (Auto) (0-2) % Lymph # (Auto) (1.2-4.9) X10*3/uL [place] # (Auto) (0.1-1.2) X10*3/uL Eos # (Auto) (0.0-0.4) X10*3/uL Baso # (Auto) (0.0-0.2) X10*3/uL Abs Immat Gran (auto) (0.00-0.03) X10*3/uL Absolute Neuts (auto) (2.0-8.3) x10*3/uL Absolute Nucleated RBC (0.0-0.012) X10*3/uL Nucleated RBC % (auto) (0.0-0.2) /100WBC D-Dimer High Sensitivty 750 NG/ML Sodium (135-145) mmol/L Potassium (3.3-5.1) mmol/L Chloride (96-108) mmol/L Carbon Dioxide (22-29) mmol/L Anion Gap (12-20) BUN (9-16) mg/dL Creatinine (0.5-1.4) mg/dL Estim Creat Clear Calc Estimated GFR Random Glucose (60-115) mg/dL Lactic Acid 1.1 (0.5-2.0) mmol/L Calcium (8.4-10.2) mg/dL Total Bilirubin (0.0-1.0) mg/dL AST (5-31) U/L ALT (0-31) U/L Alkaline Phosphatase (39-117) U/L Troponin I High Sens (<3.5-17.0) ng/L Total Protein (6.5-8.0) g/dL Albumin (3.5-5.0) g/dL Urine Color Yellow Urine Appearance Clear Urine pH >= 9.0 (5.0-9.0) Ur Specific [place] 1.010 (1.005-1.025) Urine Protein 100 (2+) H (Neg-Trace) mg/dL Urine Glucose (UA) Negative (Negative) mg/dL Urine Ketones Negative (Negative) mg/dL Urine Blood Trace H (Negative) Urine Nitrite Negative (Negative) Ur Leukocyte Esterase Large (3+) H (Negative) Urine RBC 3-5 H (0-2) /HPF Urine WBC >50 H (0-5) /HPF Ur Squamous Epith Cells 0-2 (0-2) /HPF Urine Bacteria 1+ (None Seen) Hyaline Casts 0-2 (0-2) /LPF COVID-19 (TRINIDAD) (Negative) COVID-19 Clin Com 07/30/22 Range/Units 06:36 WBC (4.8-10.8) X10*3/uL RBC (4.20-5.50) X10*6/uL Hgb (12.0-16.0) g/dl Hct (37.0-47.0) % MCV (80.0-98.0) fL MCH (27.0-33.0) pg MCHC (31.0-35.0) g/dl RDW (11.0-16.0) % Plt Count (160-400) X10*3/uL MPV (9.4-12.3) fL Immature Gran % (Auto) (0.0-0.4) % Neut % (Auto) (45-73) % Lymph % (Auto) (20-40) % [place] % (Auto) (2-11) % Eos % (Auto) (0-4) % Baso % (Auto) (0-2) % Lymph # (Auto) (1.2-4.9) X10*3/uL [place] # (Auto) (0.1-1.2) X10*3/uL Eos # (Auto) (0.0-0.4) X10*3/uL Baso # (Auto) (0.0-0.2) X10*3/uL Abs Immat Gran (auto) (0.00-0.03) X10*3/uL Absolute Neuts (auto) (2.0-8.3) x10*3/uL Absolute Nucleated RBC (0.0-0.012) X10*3/uL Nucleated RBC % (auto) (0.0-0.2) /100WBC D-Dimer High Sensitivty NG/ML Sodium (135-145) mmol/L Potassium (3.3-5.1) mmol/L Chloride (96-108) mmol/L Carbon Dioxide (22-29) mmol/L Anion Gap (12-20) BUN (9-16) mg/dL Creatinine (0.5-1.4) mg/dL Estim Creat Clear Calc Estimated GFR Random Glucose (60-115) mg/dL Lactic Acid (0.5-2.0) mmol/L Calcium (8.4-10.2) mg/dL Total Bilirubin (0.0-1.0) mg/dL AST (5-31) U/L ALT (0-31) U/L Alkaline Phosphatase (39-117) U/L Troponin I High Sens (<3.5-17.0) ng/L Total Protein (6.5-8.0) g/dL Albumin (3.5-5.0) g/dL Urine Color Urine Appearance Urine pH (5.0-9.0) Ur Specific [place] (1.005-1.025) Urine Protein (Neg-Trace) mg/dL Urine Glucose (UA) (Negative) mg/dL Urine Ketones (Negative) mg/dL Urine Blood (Negative) Urine Nitrite (Negative) Ur Leukocyte Esterase (Negative) Urine RBC (0-2) /HPF Urine WBC (0-5) /HPF Ur Squamous Epith Cells (0-2) /HPF Urine Bacteria (None Seen) Hyaline Casts (0-2) /LPF COVID-19 (TRINIDAD) Negative (Negative) COVID-19 Clin Com See Note Discharge Plan Discharge Clinical Impression: UTI (urinary tract infection), Chronic renal failure Patient Disposition: Xfer [facility] Instructions: Chronic Kidney Disease (ED) Prescriptions: No Action clonazepam 1 mg tablet 1 tab PO DAILY PRN (Reason: Anxiety) levothyroxine 100 mcg tablet 1 tab PO DAILY sevelamer carbonate [Renvela] 800 mg tablet 3 tab PO TID atorvastatin 40 mg tablet 1 tab PO DAILY polyethylene glycol 3350 17 gram Powder In Packet 17 g PO DAILY sumatriptan succinate [Imitrex] 25 mg tablet 1 tab PO DAILY lidocaine-prilocaine 2.5-2.5 % Cream 1 appl topical TUTHSA Rx Instructions: Apply to the left AV fistula site in the morning docusate sodium 100 mg Capsule 100 mg PO BID nystatin 100,000 unit/gram Powder 1 appl TOPICAL BID cholecalciferol (vitamin D3) [Vitamin D3] 25 mcg (1,000 unit) Capsule 25 mcg PO DAILY midodrine 10 mg tablet 1 tab PO TID aripiprazole 5 mg tablet 1 tab PO DAILY Eliquis 5 mg tablet 1 tab PO BID sodium polystyrene sulfonate 15 gram Powder In Packet 30 g PO MOWEFR Rx Instructions: days of dialysis acetaminophen 325 mg capsule 325 mg PO QID PRN (Reason: Pain) aspirin 81 mg tablet,delayed release (DR/EC) 81 mg PO DAILY bisacodyl 5 mg tablet,delayed release (DR/EC) 5 mg PO BEDTIME guaifenesin 200 mg/5 mL liquid 200 mg PO Q4H PRN (Reason: Cough) lidocaine [Lidoderm] 5 % adhesive patch,medicated 1 patch topical DAILY Rx Instructions: leave on most painful area for up to 12 hrs Narcan 4 mg/actuation spray,non-aerosol 4 mg intranasal Q3M PRN (Reason: overdose) Rx Instructions: spray 1 dose into ONE nostril; alternate nostrils w each dose until help arrives senna 8.6 mg capsule 8.6 mg PO BID PRN (Reason: Constipation) quetiapine [Seroquel] 25 mg tablet 75 mg PO BEDTIME diclofenac sodium 1 % gel 2 g topical QID Rx Instructions: apply to single elbow, wrist or hand; for hand includes palm/fingers/back of hand Referrals: Justin Youssef MD [Physician] - 08/01/22
--- NOTE | 2022-07-30 08:04 | PHA.MEDREC ---
Pharmacy Consult ? Medication Reconciliation Pharmacy has completed the medication reconciliation. Used list from [place]
[2022-07-30 09:53] VITALS: BP 138/70; PULSE 93; RESP 20; TEMP 36.7; O2SAT 97
--- NOTE | 2022-07-30 11:11 | MHC.CM.ED ---
Received case management consult from Dr Rausch. Patient came to the ER due to back pain. Work up essentially negative. Patient is a LTC resident of [facility] and goes to [facility] on [address] in [place] on and Sat. Patient's chair time is 1230pm. Patient is due for HD today. [facility] booked for 1130pm. [facility] with chart. Monica at [facility] aware. [facility] is aware patient will go to HD and then return to their facility. Patient, Cesar CANTOR and Dr Rausch aware. Continue to monitor for d/c needs.
--- NOTE | 2022-07-30 12:56 | PM.EVENT ---
Event Note Date of Service: 07/30/22 Event Note: Hospitalist Note: Asked to see patient for potential admission for UTI. Pt seen and examined around 830-9am. She reports she had had right sided upper back pain for several days. She denies any fevers or chills. She denies any cough or sob. Denies any anginal symptoms. States she feels the pain more when she moves and it is achy in nature. She states morphine has helped. In regards to her symptoms, she denies any dysuria, urgency, frequency. She denies flank pain. Patient's UA suggestive of UTI. She does not endorse symptoms. Nonetheless, would recommend 5-7 days of treatment. In regards to her back pain -- CTA is negative for acute vascular findings. Her pain likely is MSK in nature. Can be treated with oral analgesics. At this time, patient is stable to be treated for her UTI as an outpatient given lack of system signs and symptoms (i.e the patient does not have sepsis). In regards to her ESRD -- the patient is due to HD today (she states around 11 am). Dr[address] Rausch (ED provider) has been informed of the above.
== END 2022-07-30 12:31 | disposition skilled nursing facility (03) ==
PROVIDERS: Emergency Medicine; Emergency Provider Emergency Medicine Emergency Medical Services; PCP Internal Medicine
DX: N39.0 Urinary tract infection, site not specified (principal); M54.50 Low back pain, unspecified; N18.9 Chronic kidney disease, unspecified; R07.89 Other chest pain; Z20.822 Contact with and (suspected) exposure to COVID-19; Z79.899 Other long term (current) drug therapy
CPT/HCPCS: 36415; 71045; 71275; 80053; 81001; 83605; 84484; 85025; 85379; 87040; 87086; 87088; 87186; 87635; 93005; 96365; 96375; 99285; J0696; J2270; Q9967

== ENCOUNTER 2022-08-28 14:34 | Emergency (ER) | payer MEDICARE, MEDICAID, SELFPAY ==
[2022-08-28] VITALS (10 sets, daily range): BP systolic 107–136; BP diastolic 62–80; PULSE 71–93; RESP 10–19; TEMP 36.6–37; O2SAT 97–99; BMI 26.9
--- NOTE | 2022-08-28 15:04 | ED_ITS ---
HPI - General Adult General Chief complaint: General Medical Stated complaint: ruptured fistula per EMS Time Seen by Provider: 08/28/22 14:38 Source: patient and EMS Mode of arrival: EMS History of Present Illness HPI narrative: 66-year-old female was brought in by EMS after patient states she was watching TV and remove the dressing from her dialysis session yesterday and then began bleeding from the left upper arm. EMS said that they placed a tourniquet and endorse that the patient is currently on anticoagulation. Patient states that she feels a little dizzy but otherwise feeling well. Related Data Home Medications Medication Instructions Recorded Confirmed clonazepam 1 mg tablet 1 tab PO DAILY PRN Anxiety 06/05/21 07/30/22 levothyroxine 100 mcg tablet 1 tab PO DAILY 06/05/21 07/30/22 sevelamer carbonate 800 mg tablet 3 tab PO TID 06/05/21 07/30/22 (Renvela) acetaminophen 325 mg capsule 325 mg PO QID PRN Pain 09/12/21 07/30/22 aspirin 81 mg tablet,delayed 81 mg PO DAILY 09/12/21 07/30/22 release bisacodyl 5 mg tablet,delayed 5 mg PO BEDTIME 09/12/21 07/30/22 release diclofenac sodium 1 % topical gel 2 g topical QID 09/12/21 07/30/22 guaifenesin 200 mg/5 mL oral liquid 200 mg PO Q4H PRN Cough 09/12/21 07/30/22 lidocaine 5 % topical patch 1 patch topical DAILY 09/12/21 07/30/22 (Lidoderm) naloxone 4 mg/actuation nasal 4 mg intranasal Q3M PRN overdose 09/12/21 07/30/22 spray (Narcan) quetiapine 25 mg tablet (Seroquel) 75 mg PO BEDTIME 09/12/21 07/30/22 sennosides 8.6 mg capsule (senna) 8.6 mg PO BID PRN Constipation 09/12/21 07/30/22 apixaban 5 mg tablet (Eliquis) 1 tab PO BID 07/30/22 07/30/22 aripiprazole 5 mg tablet 1 tab PO DAILY 07/30/22 07/30/22 atorvastatin 40 mg tablet 1 tab PO DAILY 07/30/22 07/30/22 cholecalciferol (vitamin D3) 25 25 mcg PO DAILY 07/30/22 07/30/22 mcg (1,000 unit) capsule (Vitamin D3) docusate sodium 100 mg capsule 100 mg PO BID 07/30/22 07/30/22 lidocaine-prilocaine 2.5 %-2.5 % 1 appl topical TUTHSA 07/30/22 07/30/22 topical cream midodrine 10 mg tablet 1 tab PO TID 07/30/22 07/30/22 nystatin 100,000 unit/gram topical 1 appl topical BID 07/30/22 07/30/22 powder polyethylene glycol 3350 17 gram 17 g PO DAILY 07/30/22 07/30/22 oral powder packet sodium polystyrene sulfonate 15 30 g PO MOWEFR 07/30/22 07/30/22 gram oral powder packet sumatriptan succinate 25 mg tablet 1 tab PO DAILY 07/30/22 07/30/22 (Imitrex) Allergies Allergy/AdvReac Type Severity Reaction Status Date / Time adhesive tape Allergy Unknown Verified 02/02/22 09:11 Penicillins [PCN] Allergy Unknown Verified 09/20/21 06:31 Sulfa (Sulfonamide Allergy Unknown Verified 09/20/21 06:31 Antibiotics) Review of Systems Review of Systems: Pertinent positives and negatives as stated in HPI. PMFSH Past Medical History Source: nursing notes reviewed Medical History Acute pneumothorax Afib Aggressive behavior Anemia Anemia, chronic renal failure Asthma AV fistula Bipolar 1 disorder Depression Dysphagia End stage chronic kidney disease GERD without esophagitis HTN (hypertension) Hyperlipidemia Hypothyroidism Interstitial pulmonary disease Osteoporosis Pleural effusion Pulmonary hypertension Pyelonephritis Social History Social History Alcohol intake: never Patient Tobacco Use Status: Never used Tobacco Advance Directives: Yes Advance Directives on File: Yes Advance Directives Date on File: 03/15/22 Physical Exam ED Vital Signs: Vital Signs - 24 hr 08/28/22 14:44 Temperature 98 F Pulse Rate 86 Respiratory Rate 19 Blood Pressure 124/77 Pulse Oximetry 98 Oxygen Delivery Method Room Air BMI result Body Mass Index 26.9 VITAL SIGNS: Reviewed. GENERAL: Well developed, well nourished, in no acute distress. HEAD: Normocephalic/atraumatic EYES: PERRLA, EOMI EARS: Ext canals without abnormality OROPHARYNX: no oral lesions noted, posterior pharynx clear NECK: Supple, no adenopathy LUNGS: Normal breath sounds. No adventitious sounds or accessory muscle use. SpO2<98> CARDIOVASCULAR: Regular rate and rhythm without noted murmurs, no JVD or lower extremity edema. ABDOMEN: Soft, non-tender, non-distended with bowel sounds. MUSCULOSKELETAL: No tenderness, deformities, or effusions noted on gross inspection. EXTREMITIES: No cyanosis, clubbing or edema; LEFT UPPER EXTREMITY: AV fistula noted with tourniquet in place and distal pulses still palpable but noted discoloration of upper extremity secondary to tourniquet placement, on removal of the tourniquet there is a pinhole area that is not responding to direct pressure, color improved in the left upper extremity after removal of the tourniquet along with resolution of numbness and tingling reported by the patient. Thrill and bruit are present SKIN: Inspection of the skin reveals no rashes NEUROLOGIC: Alert and oriented x 4. Strength and sensation to light touch were grossly intact x 4. Course Course Course Narrative: 66-year-old female with history and clinical presentation consistent minor injury to the left upper extremity AV fistula with a pinhole size injury to the fistula, direct pressure attempted without success and decision made to aseptically cleansed the area and under sterile conditions apply 1 [id number] suture with a 4-0 nylon. Hemostasis was obtained, a small 2 x 2 was applied over top with Kerlix gauze around that. Re-evaluation of dressing demonstrates continued hemostasis. Labs are pending and I discussed the fistula with Dr Cox of Vascular who recommended speaking to patient's gastroenterology physician regarding follow up on the suture placed in the fistula and dialysis that is scheduled for tomorrow. Signed out to Dr Ozuna. - f/u labs - Nephrology consult regarding additional eval of fistula and if dialysis is okay for tomorrow. Discharge Plan Discharge Clinical Impression: Hemorrhage of arteriovenous fistula Patient Disposition: Still a Patient Prescriptions: No Action clonazepam 1 mg tablet 1 tab PO DAILY PRN (Reason: Anxiety) levothyroxine 100 mcg tablet 1 tab PO DAILY sevelamer carbonate [Renvela] 800 mg tablet 3 tab PO TID atorvastatin 40 mg tablet 1 tab PO DAILY polyethylene glycol 3350 17 gram Powder In Packet 17 g PO DAILY sumatriptan succinate [Imitrex] 25 mg tablet 1 tab PO DAILY lidocaine-prilocaine 2.5-2.5 % Cream 1 appl topical TUTHSA Rx Instructions: Apply to the left AV fistula site in the morning docusate sodium 100 mg Capsule 100 mg PO BID nystatin 100,000 unit/gram Powder 1 appl TOPICAL BID cholecalciferol (vitamin D3) [Vitamin D3] 25 mcg (1,000 unit) Capsule 25 mcg PO DAILY midodrine 10 mg tablet 1 tab PO TID aripiprazole 5 mg tablet 1 tab PO DAILY Eliquis 5 mg tablet 1 tab PO BID sodium polystyrene sulfonate 15 gram Powder In Packet 30 g PO MOWEFR Rx Instructions: days of dialysis acetaminophen 325 mg capsule 325 mg PO QID PRN (Reason: Pain) aspirin 81 mg tablet,delayed release (DR/EC) 81 mg PO DAILY bisacodyl 5 mg tablet,delayed release (DR/EC) 5 mg PO BEDTIME guaifenesin 200 mg/5 mL liquid 200 mg PO Q4H PRN (Reason: Cough) lidocaine [Lidoderm] 5 % adhesive patch,medicated 1 patch topical DAILY Rx Instructions: leave on most painful area for up to 12 hrs Narcan 4 mg/actuation spray,non-aerosol 4 mg intranasal Q3M PRN (Reason: overdose) Rx Instructions: spray 1 dose into ONE nostril; alternate nostrils w each dose until help arrives senna 8.6 mg capsule 8.6 mg PO BID PRN (Reason: Constipation) quetiapine [Seroquel] 25 mg tablet 75 mg PO BEDTIME diclofenac sodium 1 % gel 2 g topical QID Rx Instructions: apply to single elbow, wrist or hand; for hand includes palm/fingers/back of hand
[2022-08-28 16:04] LABS: MANUAL DIFF FLAG NO
[2022-08-28 16:12] LABS: Basophils Percent Auto 0.4 % (0-2); Eosinophils Absolute Auto 0.1 X10*3/uL (0.0-0.4); Eosinophils Percent Auto 1.7 % (0-4); Hematocrit 22.1 % (37.0-47.0); Imm Gran Abs Auto 0.03 X10*3/uL (0.00-0.03); Imm Gran Pct Auto 0.6 % (0.0-0.4); Lymphocytes Absolute Auto 0.8 X10*3/uL (1.2-4.9); Lymphocytes Percent Auto 16.9 % (20-40); Mean Corpuscular HGB Conc 30.3 g/dl (31.0-35.0); Mean Corpuscular Hemoglobin 32.4 pg (27.0-33.0); Mean Corpuscular Volume 106.8 fL (80.0-98.0); Mean Platelet Volume 9.5 fL (9.4-12.3); Monocytes Absolute Auto 0.4 X10*3/uL (0.1-1.2); Neutrophils Absolute Auto 3.3 x10*3/uL (2.0-8.3); Neutrophils Percent Auto 71.4 % (45-73); Platelet Count 119 X10*3/uL (160-400); Red Blood Count 2.07 X10*6/uL (4.20-5.50); White Blood Count 4.7 X10*3/uL (4.8-10.8)
[2022-08-28 16:17] LABS: Hemoglobin 6.7 g/dl (12.0-16.0)
[2022-08-28 16:26] LABS: Alanine Aminotransferase 12 U/L (0-31); Albumin Level 3.3 g/dL (3.5-5.0); Alkaline Phosphatase 43 U/L (39-117); Anion Gap 16 (12-20); Aspartate Amino Transferase 16 U/L (5-31); Blood Urea Nitrogen 24 mg/dL (9-16); Calcium 6.9 mg/dL (8.4-10.2); Carbon Dioxide 29 mmol/L (22-29); Chloride 102 mmol/L (96-108); Creatinine Clr Calc Pharmacy 9.9; Estimated Glomerular Filt Rate 8; Glucose Random 136 mg/dL (60-115); Sodium 142 mmol/L (135-145); Total Protein 4.8 g/dL (6.5-8.0)
--- NOTE | 2022-08-28 16:28 | MHC.EDTECH ---
CALL OUT TO [facility] IN [place] [phone] PRODUCTION POSTING CLERK SAID SHE WOULD PUT THE CALL OUT FOR A CALL BACK
[2022-08-28 16:42] LABS: INTERNATIONAL NORM RATIO 1.6 (0.9-1.1); Prothrombin Time 19.1 SEC (10.0-13.1)
[2022-08-28 16:45] LABS: Partial Thromboplastin Time 34.5 SEC (26.0-36.4)
[2022-08-28 16:47] LABS: Bilirubin Total 0.5 mg/dL (0.0-1.0)
--- NOTE | 2022-08-28 19:48 | PC.NURSE ---
Pt has been resting comfortably on stretcher. Reports no pain at this time. Alert and oriented x3. Awaiting blood from blood bank
--- NOTE | 2022-08-28 19:54 | PC.NURSE ---
1 unit PRBC started at 1951
--- NOTE | 2022-08-28 21:31 | PC.NURSE ---
blood transfusion continuing. pt reports no change in status I still feel great
--- NOTE | 2022-08-28 22:35 | MHC.EDTECH ---
Call out to [facility] @[phone] to book [facility] ETA of next available was given
== END 2022-08-28 23:03 | disposition still patient (30) ==
PROVIDERS: Student in an Organized Health Care Education/Training Program; Emergency Provider Emergency Medicine
DX: T82.838A Hemorrhage due to vascular prosthetic devices, implants and grafts, initial encounter (principal); Y82.8 Other medical devices associated with adverse incidents; Y92.129 Unspecified place in nursing home as the place of occurrence of the external cause; I12.0 Hypertensive chronic kidney disease with stage 5 chronic kidney disease or end stage renal disease; N18.6 End stage renal disease; Z99.2 Dependence on renal dialysis; D63.1 Anemia in chronic kidney disease; Z79.01 Long term (current) use of anticoagulants; Z79.82 Long term (current) use of aspirin; Z79.899 Other long term (current) drug therapy
CPT/HCPCS: 36415; 36430; 80053; 85025; 85610; 85730; 86850; 86900; 86901; 86920; 86922; 99284; 99285; P9016

== ENCOUNTER 2022-08-31 17:58 | Emergency (ER) | payer MEDICARE, MEDICAID, SELFPAY ==
--- NOTE | 2022-08-31 | ECG_ITS ---
Test Reason : CHEST PAIN Blood Pressure : / mmHG Vent. Rate : 085 BPM Atrial Rate : 085 BPM P-R Int : 194 ms QRS Dur : 104 ms QT Int : 390 ms P-R-T Axes : 063 009 042 degrees QTc Int : 464 ms Sinus rhythm with marked sinus arrhythmia with Premature atrial complexes Incomplete right bundle branch block Borderline ECG When compared with ECG of 29-JUL-2022 23:42, Premature atrial complexes are now Present Referred By: Mary Cohen Electronically Signed By:ROLAN SANDOVAL
--- NOTE | ~2022-08-31 | XR_ITS ---
EXAMINATION: PORTABLE CHEST 1 VIEW CLINICAL INFORMATION: weakness . COMPARISON: 07/30/2022. TECHNIQUE: Portable frontal view of the chest was obtained. FINDINGS: Patient is rotated to the left. The lungs are well expanded. There is persistent central vascular prominence similar to the prior study. No overt edema No focal infiltrate, effusion, or pneumothorax. Cardiac and mediastinal silhouettes are within normal limits for technique. Vascular stents in the left axilla. Stable sclerotic region in the left humeral head again noted. No acute bony abnormality seen. XR/XR chest 1V IMPRESSION: Rotated. Persistent central vascular prominence similar to the prior study. No overt edema.
[2022-08-31 18:15] VITALS: BP 145/87; PULSE 67; PULSE 87; RESP 18; TEMP 36.8; O2SAT 98; O2SAT 99; BMI 28.7
--- NOTE | 2022-08-31 18:26 | ED.GENADULT ---
HPI - General Adult General Chief complaint: General Medical Stated complaint: abnormal labs, hemoglobin 8.4-7.6 Time Seen by Provider: 08/31/22 18:19 Source: patient and EMS Mode of arrival: EMS Limitations: no limitations History of Present Illness HPI narrative: Patient is a 66 year old assigned female at with a history of ESRD on dialysis presenting to the emergency department today for abnormal labs. [facility] staff states that the patient had dialysis today and was fine but when checking a CBC her hemaglobin came back at 7.6 which is lower than 8.4, so they sent her to the ER. Patient states that she has no complaints at this time. Patient denies any dizziness, lightheadedness, abdominal pain, nausea, vomiting, fever, chills, blurry vision, double vision, loss of vision, chest pain, difficulty breathing, shortness of breath, back pain, night sweats, pain with urination, increased urinary frequency, increased urinary urgency, blood in her urine or stool, syncope or a near syncopal episode, recent trauma or falls, bowel incontinence, bladder incontinence, bowel retention, bladder retention, or any other complaints at this time. Severity scale (1-10): 1 Relieving factors: none Exacerbating factors: none Associated symptoms: denies other symptoms Treatments prior to arrival: none Related Data Home Medications Medication Instructions Recorded Confirmed clonazepam 1 mg tablet 1 tab PO DAILY PRN Anxiety 06/05/21 07/30/22 levothyroxine 100 mcg tablet 1 tab PO DAILY 06/05/21 07/30/22 sevelamer carbonate 800 mg tablet 3 tab PO TID 06/05/21 07/30/22 (Renvela) acetaminophen 325 mg capsule 325 mg PO QID PRN Pain 09/12/21 07/30/22 aspirin 81 mg tablet,delayed 81 mg PO DAILY 09/12/21 07/30/22 release bisacodyl 5 mg tablet,delayed 5 mg PO BEDTIME 09/12/21 07/30/22 release diclofenac sodium 1 % topical gel 2 g topical QID 09/12/21 07/30/22 guaifenesin 200 mg/5 mL oral liquid 200 mg PO Q4H PRN Cough 09/12/21 07/30/22 lidocaine 5 % topical patch 1 patch topical DAILY 09/12/21 07/30/22 (Lidoderm) naloxone 4 mg/actuation nasal 4 mg intranasal Q3M PRN overdose 09/12/21 07/30/22 spray (Narcan) quetiapine 25 mg tablet (Seroquel) 75 mg PO BEDTIME 09/12/21 07/30/22 sennosides 8.6 mg capsule (senna) 8.6 mg PO BID PRN Constipation 09/12/21 07/30/22 apixaban 5 mg tablet (Eliquis) 1 tab PO BID 07/30/22 07/30/22 aripiprazole 5 mg tablet 1 tab PO DAILY 07/30/22 07/30/22 atorvastatin 40 mg tablet 1 tab PO DAILY 07/30/22 07/30/22 cholecalciferol (vitamin D3) 25 25 mcg PO DAILY 07/30/22 07/30/22 mcg (1,000 unit) capsule (Vitamin D3) docusate sodium 100 mg capsule 100 mg PO BID 07/30/22 07/30/22 lidocaine-prilocaine 2.5 %-2.5 % 1 appl topical TUTHSA 07/30/22 07/30/22 topical cream midodrine 10 mg tablet 1 tab PO TID 07/30/22 07/30/22 nystatin 100,000 unit/gram topical 1 appl topical BID 07/30/22 07/30/22 powder polyethylene glycol 3350 17 gram 17 g PO DAILY 07/30/22 07/30/22 oral powder packet sodium polystyrene sulfonate 15 30 g PO MOWEFR 07/30/22 07/30/22 gram oral powder packet sumatriptan succinate 25 mg tablet 1 tab PO DAILY 07/30/22 07/30/22 (Imitrex) Allergies Allergy/AdvReac Type Severity Reaction Status Date / Time adhesive tape Allergy Unknown Verified 02/02/22 09:11 Penicillins [PCN] Allergy Unknown Verified 09/20/21 06:31 Sulfa (Sulfonamide Allergy Unknown Verified 09/20/21 06:31 Antibiotics) Review of Systems Constitutional: Constitutional: Reports no additional constitutional complaints, Denies chills, Denies fever(s) and Denies night sweats Eyes: Eyes: Reports no additional eye complaints, Denies blurry vision, Denies change in vision, Denies diplopia, Denies eye discharge, Denies loss of vision and Denies eye pain ENT: Denies dizziness Cardiovascular: Cardiovascular: Reports no additional cardiovascular complaints, Denies chest pain, Denies lightheadedness, Denies Loss of Consciousness and Denies dyspnea Respiratory: Respiratory: Reports no additional respiratory complaints and Denies dyspnea Gastrointestinal: Gastrointestinal: Reports no additional gastrointestinal complaints, Denies abdominal pain, Denies melena, Denies hematochezia, Denies change in bowel habits and Denies change in stool character Genitourinary: Genitourinary: Denies hematuria, Denies urinary frequency, Denies dysuria, Denies urinary incontinence, Denies urinary hesitancy and Denies urinary urgency Musculoskeletal: Musculoskeletal: Reports no additional musculoskeletal complaints, Denies numbness and Denies tingling Neurologic: Denies dizziness, Denies loss of vision, Denies numbness and Denies tingling Psychiatric: Psychiatric: Reports no additional psychiatric complaints Endocrine: Endocrine: Reports no additional endocrine complaints Hematologic/Lymphatic: Hematologic/Lymphatic: Reports no additional hematologic/lymphatic complaints Allergic/Immunologic: Allergic/Immunologic: Reports no additional allergic/immunologic complaints PMFSH Past Medical History Attestation statement: The following information was validated with the patient. Source: old records reviewed and nursing notes reviewed Medical History Acute pneumothorax Afib Aggressive behavior Anemia Anemia, chronic renal failure Asthma AV fistula Bipolar 1 disorder Depression Dysphagia End stage chronic kidney disease GERD without esophagitis HTN (hypertension) Hyperlipidemia Hypothyroidism Interstitial pulmonary disease Osteoporosis Pleural effusion Pulmonary hypertension Pyelonephritis Social History Social History Alcohol intake: never Patient Tobacco Use Status: Never used Tobacco Smoked in Last 30 Days: No Use of substances other than those prescribed or required for medical reasons: No Advance Directives: Yes Advance Directives on File: Yes Advance Directives Date on File: 03/15/22 Physical Exam ED Vital Signs: Vital Signs - 24 hr 08/31/22 18:15 08/31/22 20:00 08/31/22 22:00 Temperature 98.3 F 97.0 F 98.0 F Pulse Rate 87 85 87 Respiratory Rate 18 16 16 Blood Pressure 127/59 L 122/65 Pulse Oximetry 98 96 97 Oxygen Delivery Method Nasal Cannula Nasal Cannula Room Air Oxygen Flow Rate 1 BMI result Body Mass Index 28.7 Const General: cooperative, no acute distress, alert and awake Nutritional Appearance: well nourished Orientation/consciousness: patient oriented x3 Limitations: no limitations HENMT Head: Yes normal to inspection and Yes atraumatic Ears: hearing grossly normal bilaterally and external ears normal General nose exam: Normal external nose present, no nasal discharge noted and no epistaxis Face and sinus: Yes normal facial exam, No abrasion and No laceration Mouth: Normal oral and palatal mucosa present, no drooling and no muffled voice Eyes General: appearance normal, both eyes and all related structures Periorbital: periorbital findings normal Eyelids: Yes eyelids normal Conjunctivae: conjunctivae normal Pupils: Equal, round and reactive pupils present EOM: EOMs intact bilaterally Neck Neck: Yes normal visual inspection, Yes full ROM and Yes no lymphadenopathy Chest Chest palpation & inspection: normal inspection of the chest Resp Effort & Inspection: normal respiratory effort and able to speak in complete sentences Auscultation: clear to auscultation bilaterally Cardio Rate: regular rate Rhythm: regular rhythm GI Inspection: Yes normal to inspection Neuro General: patient oriented x3 and moves all extremities Cranial nerves: Yes Equal, round and reactive pupils present Cognition (Neuro): normal cognition Motor exam (neuro): 5/5 motor strength present throughout Sensory Exam: Normal double simultaneous stimulation for sensation Coordination: [id number] test normal Extrem General: Yes normal to inspection, Yes full ROM and Yes capillary refill normal Psych Appearance: grossly normal Mental Status: mental status grossly normal Affect: normal affect Attitude: cooperative Thought process: Normal thought process present Thought content: Normal thought content present Insight: Good insight present (Psych) Medical Decision Making Medical Decision Making MDM Narrative: Patient is a 66 year old assigned female at with a history of ESRD on dialysis presenting to the emergency department today with abnormal labs. Patient's physical exam was unremarkable. Patient's blood work was unremarkable, including a hemaglobin of 7.8. Patient's chest x-ray showed no acute process. I spoke to the billet grinder medical transcription supervisor who recommended the patient be sent back to [facility]. States that the patient does not require any additional treatment at this time. I explained my physical exam findings as well as all test results to the patient. I answered all questions asked by the patient. I stressed the importance of the patient taking her medication as prescribed. I stressed the importance of the patient following up with her primary care provider and her billet grinder. I stressed the importance of the patient returning to the emergency department immediately if she were to develop any dizziness, shortness of breath, difficulty breathing, chest pain, blurry vision, loss of vision, nausea, vomiting, abdominal pain, fever, chills, back pain, or any other complaints. Patient verbalized agreement and understanding with this treatment plan and discharge. Differential Diagnosis Differential Diagnoses: The differential diagnosis associated with the presentation includes anemia Consult Healthcare Provider Management of the patient was discussed with: Internet Technology Manager (spoke to the billet grinder who recommended discharge of the patient with no additional treatment necessary) Lab Data MDM Lab Attestation statement: I reviewed the patient's lab results. Result Diagrams: 08/31/22 18:34 08/31/22 18:34 Labs: Lab Results 08/31/22 08/31/22 08/31/22 Range/Units 18:34 18:34 19:15 WBC 3.7 L (4.8-10.8) X10*3/uL RBC 2.41 L (4.20-5.50) X10*6/uL Hgb 7.8 L (12.0-16.0) g/dl Hct 25.5 L (37.0-47.0) % MCV 105.8 H (80.0-98.0) fL MCH 32.4 (27.0-33.0) pg MCHC 30.6 L (31.0-35.0) g/dl RDW 15.2 (11.0-16.0) % Plt Count 168 D (160-400) X10*3/uL MPV 9.1 L (9.4-12.3) fL Immature Gran % (Auto) 0.8 H (0.0-0.4) % Neut % (Auto) 63.1 (45-73) % Lymph % (Auto) 23.6 (20-40) % [place] % (Auto) 9.0 (2-11) % Eos % (Auto) 3.0 (0-4) % Baso % (Auto) 0.5 (0-2) % Lymph # (Auto) 0.9 L (1.2-4.9) X10*3/uL [place] # (Auto) 0.3 (0.1-1.2) X10*3/uL Eos # (Auto) 0.1 (0.0-0.4) X10*3/uL Baso # (Auto) 0.0 (0.0-0.2) X10*3/uL Abs Immat Gran (auto) 0.03 (0.00-0.03) X10*3/uL Absolute Neuts (auto) 2.3 (2.0-8.3) x10*3/uL Absolute Nucleated RBC 0.020 H (0.0-0.012) X10*3/uL Nucleated RBC % (auto) 0.5 H (0.0-0.2) /100WBC Sodium 141 (135-145) mmol/L Potassium 4.3 (3.3-5.1) mmol/L Chloride 99 (96-108) mmol/L Carbon Dioxide 32 H (22-29) mmol/L Anion Gap 14 (12-20) BUN 16 (9-16) mg/dL Creatinine 3.45 H (0.5-1.4) mg/dL Estim Creat Clear Calc 17.9 Estimated GFR 13 Random Glucose 112 (60-115) mg/dL Calcium 7.7 L D (8.4-10.2) mg/dL Magnesium 1.9 (1.6-2.6) mg/dL Total Bilirubin 0.8 (0.0-1.0) mg/dL AST 22 (5-31) U/L ALT 12 (0-31) U/L Alkaline Phosphatase 51 (39-117) U/L Total Protein 5.6 L (6.5-8.0) g/dL Albumin 3.7 (3.5-5.0) g/dL Blood Type A Positive Antibody Screen NEGATIVE Radiology Impression Discussion of test interpretation with radiology: I have reviewed the radiologist's reading. Radiologist Impression: EXAMINATION: PORTABLE CHEST 1 VIEW CLINICAL INFORMATION: weakness . COMPARISON: 07/30/2022. TECHNIQUE: Portable frontal view of the chest was obtained. FINDINGS: Patient is rotated to the left. The lungs are well expanded. There is persistent central vascular prominence similar to the prior study. No overt edema No focal infiltrate, effusion, or pneumothorax. Cardiac and mediastinal silhouettes are within normal limits for technique. Vascular stents in the left axilla. Stable sclerotic region in the left humeral head again noted. No acute bony abnormality seen. XR/XR chest 1V IMPRESSION: Rotated. Persistent central vascular prominence similar to the prior study. No overt edema. Dictated By: Daniel Allen MD Signed By: Electronically signed by Daniel Allen MD 08/31/221916 Chronic Conditions Patient?s care impacted by: Other (ESRD) Discharge Plan Discharge Clinical Impression: Anemia Patient Disposition: Home, Self-Care Instructions: Anemia (ED) Additional Instructions: Follow up with your primary care provider and your billet grinder. Return to the emergency department immediately if your symptoms worsen or if you develop any dizziness, shortness of breath, difficulty breathing, chest pain, blurry vision, loss of vision, nausea, vomiting, abdominal pain, fever, chills, back pain, or any other complaints. Prescriptions: No Action clonazepam 1 mg tablet 1 tab PO DAILY PRN (Reason: Anxiety) levothyroxine 100 mcg tablet 1 tab PO DAILY sevelamer carbonate [Renvela] 800 mg tablet 3 tab PO TID atorvastatin 40 mg tablet 1 tab PO DAILY polyethylene glycol 3350 17 gram Powder In Packet 17 g PO DAILY sumatriptan succinate [Imitrex] 25 mg tablet 1 tab PO DAILY lidocaine-prilocaine 2.5-2.5 % Cream 1 appl topical TUTHSA Rx Instructions: Apply to the left AV fistula site in the morning docusate sodium 100 mg Capsule 100 mg PO BID nystatin 100,000 unit/gram Powder 1 appl TOPICAL BID cholecalciferol (vitamin D3) [Vitamin D3] 25 mcg (1,000 unit) Capsule 25 mcg PO DAILY midodrine 10 mg tablet 1 tab PO TID aripiprazole 5 mg tablet 1 tab PO DAILY Eliquis 5 mg tablet 1 tab PO BID sodium polystyrene sulfonate 15 gram Powder In Packet 30 g PO MOWEFR Rx Instructions: days of dialysis acetaminophen 325 mg capsule 325 mg PO QID PRN (Reason: Pain) aspirin 81 mg tablet,delayed release (DR/EC) 81 mg PO DAILY bisacodyl 5 mg tablet,delayed release (DR/EC) 5 mg PO BEDTIME guaifenesin 200 mg/5 mL liquid 200 mg PO Q4H PRN (Reason: Cough) lidocaine [Lidoderm] 5 % adhesive patch,medicated 1 patch topical DAILY Rx Instructions: leave on most painful area for up to 12 hrs Narcan 4 mg/actuation spray,non-aerosol 4 mg intranasal Q3M PRN (Reason: overdose) Rx Instructions: spray 1 dose into ONE nostril; alternate nostrils w each dose until help arrives senna 8.6 mg capsule 8.6 mg PO BID PRN (Reason: Constipation) quetiapine [Seroquel] 25 mg tablet 75 mg PO BEDTIME diclofenac sodium 1 % gel 2 g topical QID Rx Instructions: apply to single elbow, wrist or hand; for hand includes palm/fingers/back of hand Referrals: [facility] Family Medicine [Provider Group] (Call to establish and follow up with a primary care provider. If you already have a primary care provider, please follow up with them.) [facility] Primary Care, Arleen [Provider Group] (Call to establish and follow up with a primary care provider. If you already have a primary care provider, please follow up with them.) [facility] Primary Care,Rohit [Provider Group] (Call to establish and follow up with a primary care provider. If you already have a primary care provider, please follow up with them.) Print Language: Swazi
[2022-08-31 18:40] LABS: MANUAL DIFF FLAG NO
[2022-08-31 18:43] LABS: Basophils Percent Auto 0.5 % (0-2); Eosinophils Absolute Auto 0.1 X10*3/uL (0.0-0.4); Hematocrit 25.5 % (37.0-47.0); Hemoglobin 7.8 g/dl (12.0-16.0); Imm Gran Abs Auto 0.03 X10*3/uL (0.00-0.03); Imm Gran Pct Auto 0.8 % (0.0-0.4); Lymphocytes Absolute Auto 0.9 X10*3/uL (1.2-4.9); Lymphocytes Percent Auto 23.6 % (20-40); Mean Corpuscular HGB Conc 30.6 g/dl (31.0-35.0); Mean Corpuscular Hemoglobin 32.4 pg (27.0-33.0); Mean Corpuscular Volume 105.8 fL (80.0-98.0); Mean Platelet Volume 9.1 fL (9.4-12.3); Monocytes Absolute Auto 0.3 X10*3/uL (0.1-1.2); NRBC Pct Auto 0.5 /100WBC (0.0-0.2); Neutrophils Absolute Auto 2.3 x10*3/uL (2.0-8.3); Neutrophils Percent Auto 63.1 % (45-73); Platelet Count 168 X10*3/uL (160-400); Red Blood Count 2.41 X10*6/uL (4.20-5.50); Red Cell Distribution Width 15.2 % (11.0-16.0); White Blood Count 3.7 X10*3/uL (4.8-10.8)
[2022-08-31 18:57] LABS: Alanine Aminotransferase 12 U/L (0-31); Albumin Level 3.7 g/dL (3.5-5.0); Alkaline Phosphatase 51 U/L (39-117); Anion Gap 14 (12-20); Aspartate Amino Transferase 22 U/L (5-31); Bilirubin Total 0.8 mg/dL (0.0-1.0); Blood Urea Nitrogen 16 mg/dL (9-16); Calcium 7.7 mg/dL (8.4-10.2); Carbon Dioxide 32 mmol/L (22-29); Chloride 99 mmol/L (96-108); Creatinine Clr Calc Pharmacy 17.9; Estimated Glomerular Filt Rate 13; Glucose Random 112 mg/dL (60-115); Magnesium 1.9 mg/dL (1.6-2.6); Potassium 4.3 mmol/L (3.3-5.1); Sodium 141 mmol/L (135-145); Total Protein 5.6 g/dL (6.5-8.0)
[2022-08-31 20:00] VITALS: BP 127/59; PULSE 85; RESP 16; TEMP 36.1; O2SAT 96
[2022-08-31 22:00] VITALS: BP 122/65; PULSE 87; RESP 16; TEMP 36.7; O2SAT 97
[2022-08-31] MEDS: Acetaminophen 325 MG TABLET 650 MG PO (23:36)
--- NOTE | 2022-09-01 | PC.NURSE ---
Pt's was experiencing panic attacks, this nurse has spoken with the provider and the pt has been medicated. Pt left in the EMS was feeling much better.
[2022-09-01] MEDS: LORazepam 1 MG TABLET 2 MG PO (01:35)
[2022-09-01 01:44] VITALS: BP 116/69; PULSE 96; RESP 16; TEMP 36.6; O2SAT 98
== END 2022-09-01 02:49 | disposition home or self-care (01) ==
PROVIDERS: Physician Assistant Medical; Emergency Provider Emergency Medicine
DX: I12.0 Hypertensive chronic kidney disease with stage 5 chronic kidney disease or end stage renal disease (principal); N18.6 End stage renal disease; D63.1 Anemia in chronic kidney disease; Z99.2 Dependence on renal dialysis; E78.5 Hyperlipidemia, unspecified; I48.91 Unspecified atrial fibrillation; Z79.899 Other long term (current) drug therapy; Z79.02 Long term (current) use of antithrombotics/antiplatelets; Z79.01 Long term (current) use of anticoagulants
CPT/HCPCS: 36415; 71045; 80053; 83735; 85025; 86850; 86900; 86901; 93005; 99283; 99284

== ENCOUNTER 2022-09-18 20:15 | Emergency (ER) | payer MEDICARE, MEDICAID, SELFPAY ==
--- NOTE | ~2022-09-18 | CT_ITS ---
EXAMINATION: CT LUMBAR SPINE WITHOUT CONTRAST CLINICAL INFORMATION: Worsening low back pain. COMPARISON: None TECHNIQUE: 2 mm thin axial and reformatted 2 mm thin sagittal and coronal images of lumbar spine were obtained. This CT examination was performed using dose optimization techniques as appropriate, variously including the following: *Automated exposure control *Adjustment of mA and/or kV according to patient size (this includes techniques or standardized protocols for targeted exams where dose is matched to indication/reason for exam; i.e. extremities or head) *Use of iterative reconstruction technique DLP; 484 mGy-cm FINDINGS: On sagittal reconstructed images there is maintained lumbar lordosis. The vertebral heights and alignment is normal. The disc heights are preserved with minimal vacuum disc phenomena at L3-L4 disc level. At L1-L2 disc level is minimal bulges no focal centrally resulting in mild AP canal narrowing. The neural foramina are patent. At L2-L3 disc level there is no signal disc bulge, herniation or spinal stenosis. At L3-L4 disc level there is minimal bulge but no spinal canal stenosis. The neural foramina are patent. At L4-L5 an L5-S1 disc level there is no signal disc bulge, herniation or spinal stenosis.. There are bilateral nonobstructive radiopaque renal calculi. Largest radiopaque calculi lower pole left kidney measures 5 mm and lower pole right kidney measures 2 mm. No focal caliectasis seen. A small right kidney is noted. 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 There is hepatosplenomegaly. There is a infrarenal IVC filter. CT/CT lumbar spine wo IV con IMPRESSION: 1. Minimal disc bulge L1-L2 and L3-L4 disc levels without spinal canal stenosis. Mild vacuum disc phenomena L3-L4 disc level. 2. Bilateral nonobstructive radiopaque renal calculi with a small right kidney and left-sided peripelvic lipomatosis. 3. Hepatosplenomegaly. Unknown etiology
[2022-09-18 20:24] VITALS: BP 120/70; BP 125/62; PULSE 68; PULSE 97; RESP 18; TEMP 36.7; O2SAT 99; BMI 30.1
--- NOTE | 2022-09-18 20:32 | ED.BACK ---
HPI - Back Pain/Injury General Chief Complaint: Back Pain/Injury Stated Complaint: Back Pain Time Seen by Provider: 09/18/22 20:30 Source: patient Mode of arrival: EMS History of Present Illness HPI Narrative: Patient from retirement for chronic back pain no recent fall complaining of pain which is going on for a long time patient is wheelchair-bound with history of chronic arthritis Related Data Home Medications Medication Instructions Recorded Confirmed clonazepam 1 mg tablet 1 tab PO DAILY PRN Anxiety 06/05/21 07/30/22 levothyroxine 100 mcg tablet 1 tab PO DAILY 06/05/21 07/30/22 sevelamer carbonate 800 mg tablet 3 tab PO TID 06/05/21 07/30/22 (Renvela) acetaminophen 325 mg capsule 325 mg PO QID PRN Pain 09/12/21 07/30/22 aspirin 81 mg tablet,delayed 81 mg PO DAILY 09/12/21 07/30/22 release bisacodyl 5 mg tablet,delayed 5 mg PO BEDTIME 09/12/21 07/30/22 release diclofenac sodium 1 % topical gel 2 g topical QID 09/12/21 07/30/22 guaifenesin 200 mg/5 mL oral liquid 200 mg PO Q4H PRN Cough 09/12/21 07/30/22 lidocaine 5 % topical patch 1 patch topical DAILY 09/12/21 07/30/22 (Lidoderm) naloxone 4 mg/actuation nasal 4 mg intranasal Q3M PRN overdose 09/12/21 07/30/22 spray (Narcan) quetiapine 25 mg tablet (Seroquel) 75 mg PO BEDTIME 09/12/21 07/30/22 sennosides 8.6 mg capsule (senna) 8.6 mg PO BID PRN Constipation 09/12/21 07/30/22 apixaban 5 mg tablet (Eliquis) 1 tab PO BID 07/30/22 07/30/22 aripiprazole 5 mg tablet 1 tab PO DAILY 07/30/22 07/30/22 atorvastatin 40 mg tablet 1 tab PO DAILY 07/30/22 07/30/22 cholecalciferol (vitamin D3) 25 25 mcg PO DAILY 07/30/22 07/30/22 mcg (1,000 unit) capsule (Vitamin D3) docusate sodium 100 mg capsule 100 mg PO BID 07/30/22 07/30/22 lidocaine-prilocaine 2.5 %-2.5 % 1 appl topical TUTHSA 07/30/22 07/30/22 topical cream midodrine 10 mg tablet 1 tab PO TID 07/30/22 07/30/22 nystatin 100,000 unit/gram topical 1 appl topical BID 07/30/22 07/30/22 powder polyethylene glycol 3350 17 gram 17 g PO DAILY 07/30/22 07/30/22 oral powder packet sodium polystyrene sulfonate 15 30 g PO MOWEFR 07/30/22 07/30/22 gram oral powder packet sumatriptan succinate 25 mg tablet 1 tab PO DAILY 07/30/22 07/30/22 (Imitrex) Allergies Allergy/AdvReac Type Severity Reaction Status Date / Time adhesive tape Allergy Unknown Verified 02/02/22 09:11 Penicillins [PCN] Allergy Unknown Verified 09/20/21 06:31 Sulfa (Sulfonamide Allergy Unknown Verified 09/20/21 06:31 Antibiotics) Review of Systems Review of Systems: Yes all other systems are reviewed and are negative [facility] Past Medical History Medical History Acute pneumothorax Afib Aggressive behavior Anemia Anemia, chronic renal failure Asthma AV fistula Bipolar 1 disorder Depression Dysphagia End stage chronic kidney disease GERD without esophagitis HTN (hypertension) Hyperlipidemia Hypothyroidism Interstitial pulmonary disease Osteoporosis Pleural effusion Pulmonary hypertension Pyelonephritis Social History Social History Alcohol intake: never Patient Tobacco Use Status: Never used Tobacco Advance Directives: Yes Advance Directives on File: Yes Advance Directives Date on File: 03/15/22 Physical Exam Vital Signs: Vital Signs: Last Vital Signs Temp 98.1 F 09/18/22 20:24 Pulse 97 09/18/22 20:24 Resp 18 09/18/22 20:24 BP 125/62 09/18/22 20:24 Pulse Ox 99 09/18/22 20:24 O2 Del Method 09/18/22 20:24 Oxygen Flow Rate 2 09/18/22 20:24 BMI result Body Mass Index 30.1 Appearance: Alert. Oriented X3. No acute distress. Eyes: PERRLA, No Nystagmus ENT: Pharynx normal. Oral Mucosa moist Neck: Normal inspection. Neck supple. CVS: Normal heart rate and rhythm. Pulses normal. Respiratory: No respiratory distress. Equal air entry bilateral, no wheezing/rales/rhonchi Abdomen: Soft and nontender. Bowel sounds are present, no mass palpable, no CVA tenderness Skin: Skin warm and dry. Normal skin color. Normal skin turgor. Back: Diffuse tenderness no focal spinal deformity Extremities: No lower extremity edema. No calf tenderness tremors++ Neuro: Oriented X 3. No motor deficit. No sensory deficit.No cerebellar signs , cranial nerves II-XII intact Medications Administered Discontinued Medications Generic Name Dose Route Start Last Admin Trade Name Freq PRN Reason Stop Dose Admin Oxycodone HCl 5 mg 09/18/22 21:34 09/18/22 21:47 Oxycodone Hcl Immed Release 5 Mg Tablet PO 09/18/22 21:35 5 mg ONCE ONE Administration Medical Decision Making Medical Decision Making [facility] Narrative: Patient with chronic back pain CT scan negative for any acute compression fracture discharge patient home advised to follow with PCP and retirement Discharge Plan Discharge Clinical Impression: Chronic low back pain Patient Disposition: Home, Self-Care Instructions: Chronic Back Pain (DC) Additional Instructions: Continue pain medication as prescribed by your PCP and follow-up with PCP Tramadol for severe pain Prescriptions: No Action clonazepam 1 mg tablet 1 tab PO DAILY PRN (Reason: Anxiety) levothyroxine 100 mcg tablet 1 tab PO DAILY sevelamer carbonate [Renvela] 800 mg tablet 3 tab PO TID atorvastatin 40 mg tablet 1 tab PO DAILY polyethylene glycol 3350 17 gram Powder In Packet 17 g PO DAILY sumatriptan succinate [Imitrex] 25 mg tablet 1 tab PO DAILY lidocaine-prilocaine 2.5-2.5 % Cream 1 appl topical TUTHSA Rx Instructions: Apply to the left AV fistula site in the morning docusate sodium 100 mg Capsule 100 mg PO BID nystatin 100,000 unit/gram Powder 1 appl TOPICAL BID cholecalciferol (vitamin D3) [Vitamin D3] 25 mcg (1,000 unit) Capsule 25 mcg PO DAILY midodrine 10 mg tablet 1 tab PO TID aripiprazole 5 mg tablet 1 tab PO DAILY Eliquis 5 mg tablet 1 tab PO BID sodium polystyrene sulfonate 15 gram Powder In Packet 30 g PO MOWEFR Rx Instructions: days of dialysis acetaminophen 325 mg capsule 325 mg PO QID PRN (Reason: Pain) aspirin 81 mg tablet,delayed release (DR/EC) 81 mg PO DAILY bisacodyl 5 mg tablet,delayed release (DR/EC) 5 mg PO BEDTIME guaifenesin 200 mg/5 mL liquid 200 mg PO Q4H PRN (Reason: Cough) lidocaine [Lidoderm] 5 % adhesive patch,medicated 1 patch topical DAILY Rx Instructions: leave on most painful area for up to 12 hrs Narcan 4 mg/actuation spray,non-aerosol 4 mg intranasal Q3M PRN (Reason: overdose) Rx Instructions: spray 1 dose into ONE nostril; alternate nostrils w each dose until help arrives senna 8.6 mg capsule 8.6 mg PO BID PRN (Reason: Constipation) quetiapine [Seroquel] 25 mg tablet 75 mg PO BEDTIME diclofenac sodium 1 % gel 2 g topical QID Rx Instructions: apply to single elbow, wrist or hand; for hand includes palm/fingers/back of hand Interventions: ED Discharge Assessment Last Done: 09/19/22 00:34 Discharge Date/Time: 09/19/22 00:35
[2022-09-18] MEDS: oxyCODONE HCl Immed Release 5 MG TABLET PO (21:47)
== END 2022-09-19 00:35 | disposition home or self-care (01) ==
PROVIDERS: Emergency Provider Internal Medicine
DX: G89.29 Other chronic pain (principal); M54.50 Low back pain, unspecified; I12.0 Hypertensive chronic kidney disease with stage 5 chronic kidney disease or end stage renal disease; N18.6 End stage renal disease; D63.1 Anemia in chronic kidney disease; E78.5 Hyperlipidemia, unspecified; I48.91 Unspecified atrial fibrillation; Z79.82 Long term (current) use of aspirin; Z79.899 Other long term (current) drug therapy; Z79.01 Long term (current) use of anticoagulants; Z79.02 Long term (current) use of antithrombotics/antiplatelets
CPT/HCPCS: 72131; 99284

== ENCOUNTER 2022-10-14 17:22 | Emergency (ER) | payer MEDICARE, MEDICAID, SELFPAY ==
--- NOTE | ~2022-10-14 | XR_ITS ---
EXAMINATION: XR CHEST CLINICAL INFORMATION: Chest pain COMPARISON: Chest 08/31/2022. TECHNIQUE: Frontal view of the chest was obtained. FINDINGS: The lungs are well-expanded and clear of acute process. The heart size and pulmonary vascularity is normal. There is mild dextro scoliosis of dorsal spine. No gross bony abnormality is seen. There are vascular stents seen within the left axilla and left upper extremity. XR/XR chest 1V IMPRESSION: No acute cardiopulmonary process seen.
--- NOTE | 2022-10-14 17:32 | ED.CHESTPAIN ---
HPI - Chest Pain General Chief Complaint: General Medical Stated Complaint: CP FROM SNF PER EMS Time Seen by Provider: 10/14/22 17:32 Source: patient and EMS Mode of arrival: EMS Limitations: other (Cognitive impairment, poor historian) History of Present Illness HPI narrative: 67-year-old female presents via EMS from long-term facility for chest pain. Patient called 911 herself from her room. MD complaint: chest pain and chest discomfort Onset (ago): hour(s) (Within the hour of arrival) Timing of current episode: episodic Prior episodes: Yes Onset: during rest Pain location: substernal Pain radiation: none Severity: mild Quality: aching Relieving factors: nothing Exacerbating factors: nothing Treatment prior to arrival: none Related Data Home Medications Medication Instructions Recorded Confirmed clonazepam 1 mg tablet 1 tab PO DAILY PRN Anxiety 06/05/21 07/30/22 levothyroxine 100 mcg tablet 1 tab PO DAILY 06/05/21 07/30/22 sevelamer carbonate 800 mg tablet 3 tab PO TID 06/05/21 07/30/22 (Renvela) acetaminophen 325 mg capsule 325 mg PO QID PRN Pain 09/12/21 07/30/22 aspirin 81 mg tablet,delayed 81 mg PO DAILY 09/12/21 07/30/22 release bisacodyl 5 mg tablet,delayed 5 mg PO BEDTIME 09/12/21 07/30/22 release diclofenac sodium 1 % topical gel 2 g topical QID 09/12/21 07/30/22 guaifenesin 200 mg/5 mL oral liquid 200 mg PO Q4H PRN Cough 09/12/21 07/30/22 lidocaine 5 % topical patch 1 patch topical DAILY 09/12/21 07/30/22 (Lidoderm) naloxone 4 mg/actuation nasal 4 mg intranasal Q3M PRN overdose 09/12/21 07/30/22 spray (Narcan) quetiapine 25 mg tablet (Seroquel) 75 mg PO BEDTIME 09/12/21 07/30/22 sennosides 8.6 mg capsule (senna) 8.6 mg PO BID PRN Constipation 09/12/21 07/30/22 apixaban 5 mg tablet (Eliquis) 1 tab PO BID 07/30/22 07/30/22 aripiprazole 5 mg tablet 1 tab PO DAILY 07/30/22 07/30/22 atorvastatin 40 mg tablet 1 tab PO DAILY 07/30/22 07/30/22 cholecalciferol (vitamin D3) 25 25 mcg PO DAILY 07/30/22 07/30/22 mcg (1,000 unit) capsule (Vitamin D3) docusate sodium 100 mg capsule 100 mg PO BID 07/30/22 07/30/22 lidocaine-prilocaine 2.5 %-2.5 % 1 appl topical TUTHSA 07/30/22 07/30/22 topical cream midodrine 10 mg tablet 1 tab PO TID 07/30/22 07/30/22 nystatin 100,000 unit/gram topical 1 appl topical BID 07/30/22 07/30/22 powder polyethylene glycol 3350 17 gram 17 g PO DAILY 07/30/22 07/30/22 oral powder packet sodium polystyrene sulfonate 15 30 g PO MOWEFR 07/30/22 07/30/22 gram oral powder packet sumatriptan succinate 25 mg tablet 1 tab PO DAILY 07/30/22 07/30/22 (Imitrex) Allergies Allergy/AdvReac Type Severity Reaction Status Date / Time adhesive tape Allergy Unknown Verified 10/14/22 18:30 Penicillins [PCN] Allergy Unknown Verified 10/14/22 18:30 Sulfa (Sulfonamide Allergy Unknown Verified 10/14/22 18:30 Antibiotics) Review of Systems Review of Systems: Constitutional: No Fever, No Chills Cardiovascular: Positive Chest Pain, No SOB Respiratory: No Cough, No Dyspnea Gastrointestinal: No Nausea, No Vomiting, No Diarrhea, No abdominal Pain Genitourinary: No Dysuria, No Hematuria Musculoskeletal: Now joint pain, No Myalgias, No Joint Swelling Skin: No Skin lacerations, No rash Neuro: No Weakness, No Numbness, positive tremor, No Dizziness, No Headache Yes all other systems are reviewed and are negative [facility] Past Medical History Attestation statement: The following information was validated with the patient. Source: old records reviewed Medical History Acute pneumothorax Afib Aggressive behavior Anemia Anemia, chronic renal failure Asthma AV fistula Bipolar 1 disorder Depression Dysphagia End stage chronic kidney disease GERD without esophagitis HTN (hypertension) Hyperlipidemia Hypothyroidism Interstitial pulmonary disease Osteoporosis Pleural effusion Pulmonary hypertension Pyelonephritis Social History Social History Alcohol intake: never Patient Tobacco Use Status: Never used Tobacco Smoked in Last 30 Days: No Use of substances other than those prescribed or required for medical reasons: No Advance Directives: Yes Advance Directives on File: Yes Advance Directives Date on File: 03/15/22 Physical Exam Vital Signs: Vital Signs: Last Vital Signs Temp 97.8 F 10/14/22 17:49 Pulse 106 H 10/14/22 21:28 Resp 19 10/14/22 21:28 BP 95/58 L 10/14/22 21:28 Pulse Ox 95 10/14/22 21:28 O2 Del Method 10/14/22 21:28 O2 Flow Rate 2 10/14/22 21:28 BMI result Body Mass Index 28.4 Appearance: Alert. Oriented. No acute distress. Poor historian. Parkinson's or tar dive like tremor Eyes: Pupils equal, round and reactive to light. ENT: Pharynx normal. Neck: Normal inspection. Neck supple. CVS: Normal heart rate and rhythm. Pulses normal. Respiratory: No respiratory distress. Breath sounds normal. Abdomen: Soft and nontender. Skin: Skin warm and dry. Normal skin color. Normal skin turgor. Extremities: No lower extremity edema. Neuro: No motor deficit. No sensory deficit. Cranial nerves 2-12 intact Course Course Course Narrative: 67-year-old female presents via EMS from long-term facility for chest pain. Patient is a poor historian, has a suspected cognitive impairment, states to have chest pain that started at 16:00 and is substernal. EKG indicates peaked and tented T-waves consistent with elevated potassium. Critical values potassium 7.0, creatinine 7.39, order for Lokelma, D50, insulin 5 units, calcium gluconate, and fluids. Review of records indicates prior lab values on 08/31/2022 with a potassium of 4.3, creatinine of 3.45. Discussion with Dr. Cox regarding these critical lab values. Multiple phone calls out facility on answered, we were not able get full report on this patient until after we treated her for elevated potassium and creatinine. Patient is a dialysis patient, received dialysis Friday and Friday. I did speak to Nephrology regarding treatments provided for elevated potassium, patient will be receiving dialysis tomorrow, repeat values indicate a potassium of 4.7, and a creatinine of 7.41. This patient okayed to be discharged home. Plan of care is to discharge to long-term facility. Report given to long-term facility by RN. Consultations Consultation #1: Dr. Mcdonnell Time: 22:45 Medications Administered Discontinued Medications Generic Name Dose Route Start Last Admin Trade Name Deniq PRN Reason Stop Dose Admin Albuterol Sulfate 5 mg 10/14/22 18:56 10/14/22 19:27 Albuterol Sulfate (0.083%) 2.5 Mg/3 Ml Vial.Neb INHALE 10/14/22 18:57 5 mg ONCE ONE Administration Dextrose 25 gm 10/14/22 18:56 10/14/22 19:22 Dextrose 50 % 25 Gm/50 Ml Syringe IVPUSH 10/14/22 18:57 25 gm ONCE ONE Administration Calcium Gluconate 2 gm in 100 mls @ 50 mls/hr 10/14/22 18:56 10/14/22 19:20 Calcium Gluconate IV 10/14/22 20:55 50 mls/hr ONCE ONE Administration Insulin Human Regular 5 unit 10/14/22 18:56 10/14/22 19:23 Insulin Regular, Human 100 Unit/Ml 3 Ml Vial IVPUSH 10/14/22 18:57 5 unit ONCE ONE Administration Sodium Zirconium Cyclosilicate 10 gm 10/14/22 18:56 10/14/22 19:15 Sodium Zirconium Cyclosilicate 10 Gm Powd.Pack PO 10/14/22 18:57 10 gm ONCE ONE Administration Medical Decision Making Differential Diagnosis Differential Diagnoses: The differential diagnosis associated with the presentation includes CP, ACS, musculoskeletal pain, hyperkalemia Consult Healthcare Provider Management of the patient was discussed with: [employer] [facility] Nephrology Lab Data [facility] Lab Attestation statement: I reviewed the patient's lab results. 10/14/22 18:20 10/14/22 18:20 Labs: Lab Results 10/14/22 10/14/22 10/14/22 Range/Units 18:20 18:20 18:20 WBC 5.5 (4.8-10.8) X10*3/uL RBC 3.67 L D (4.20-5.50) X10*6/uL Hgb 12.0 D (12.0-16.0) g/dl Hct 39.5 D (37.0-47.0) % MCV 107.6 H (80.0-98.0) fL MCH 32.7 (27.0-33.0) pg MCHC 30.4 L (31.0-35.0) g/dl RDW 16.9 H (11.0-16.0) % Plt Count 116 L D (160-400) X10*3/uL MPV 9.6 (9.4-12.3) fL Immature Gran % (Auto) 0.2 (0.0-0.4) % Neut % (Auto) 63.5 (45-73) % Lymph % (Auto) 25.1 (20-40) % Roosevelt % (Auto) 9.2 (2-11) % Eos % (Auto) 1.6 (0-4) % Baso % (Auto) 0.4 (0-2) % Lymph # (Auto) 1.4 (1.2-4.9) X10*3/uL Roosevelt # (Auto) 0.5 (0.1-1.2) X10*3/uL Eos # (Auto) 0.1 (0.0-0.4) X10*3/uL Baso # (Auto) 0.0 (0.0-0.2) X10*3/uL Abs Immat Gran (auto) 0.01 (0.00-0.03) X10*3/uL Absolute Neuts (auto) 3.5 (2.0-8.3) x10*3/uL Absolute Nucleated RBC 0.000 (0.0-0.012) X10*3/uL Nucleated RBC % (auto) 0.0 (0.0-0.2) /100WBC PT (10.0-13.1) SEC INR (0.9-1.1) APTT 33.6 (26.0-36.4) SEC Sodium 142 (135-145) mmol/L Potassium 7.0 H* D (3.3-5.1) mmol/L Chloride 102 (96-108) mmol/L Carbon Dioxide 30 H (22-29) mmol/L Anion Gap 17 (12-20) BUN 41 H (9-16) mg/dL Creatinine 7.39 H* (0.5-1.4) mg/dL Estim Creat Clear Calc 6.0 Estimated GFR 5 Random Glucose 80 (60-115) mg/dL Calcium 7.6 L (8.4-10.2) mg/dL Magnesium 2.4 (1.6-2.6) mg/dL Total Bilirubin 0.6 (0.0-1.0) mg/dL Direct Bilirubin 0.2 (0.0-0.5) mg/dL AST 17 (5-31) U/L ALT 16 (0-31) U/L Alkaline Phosphatase 55 (39-117) U/L Troponin I High Sens (<3.5-17.0) ng/L B-Natriuretic Peptide (<100) pg/mL Total Protein 5.9 L (6.5-8.0) g/dL Albumin 4.0 (3.5-5.0) g/dL Lipase 90 H (8-78) U/L Influenza Type A (PCR) (Negative) Influenza Type B (PCR) (Negative) RSV RNA Qual (PCR) (Negative) SARS-CoV-2 RNA (RT-PCR) (Negative) 10/14/22 10/14/22 10/14/22 Range/Units 18:20 18:20 18:20 WBC (4.8-10.8) X10*3/uL RBC (4.20-5.50) X10*6/uL Hgb (12.0-16.0) g/dl Hct (37.0-47.0) % MCV (80.0-98.0) fL MCH (27.0-33.0) pg MCHC (31.0-35.0) g/dl RDW (11.0-16.0) % Plt Count (160-400) X10*3/uL MPV (9.4-12.3) fL Immature Gran % (Auto) (0.0-0.4) % Neut % (Auto) (45-73) % Lymph % (Auto) (20-40) % Roosevelt % (Auto) (2-11) % Eos % (Auto) (0-4) % Baso % (Auto) (0-2) % Lymph # (Auto) (1.2-4.9) X10*3/uL Roosevelt # (Auto) (0.1-1.2) X10*3/uL Eos # (Auto) (0.0-0.4) X10*3/uL Baso # (Auto) (0.0-0.2) X10*3/uL Abs Immat Gran (auto) (0.00-0.03) X10*3/uL Absolute Neuts (auto) (2.0-8.3) x10*3/uL Absolute Nucleated RBC (0.0-0.012) X10*3/uL Nucleated RBC % (auto) (0.0-0.2) /100WBC PT 13.9 H (10.0-13.1) SEC INR 1.2 H (0.9-1.1) APTT (26.0-36.4) SEC Sodium (135-145) mmol/L Potassium (3.3-5.1) mmol/L Chloride (96-108) mmol/L Carbon Dioxide (22-29) mmol/L Anion Gap (12-20) BUN (9-16) mg/dL Creatinine (0.5-1.4) mg/dL Estim Creat Clear Calc Estimated GFR Random Glucose (60-115) mg/dL Calcium (8.4-10.2) mg/dL Magnesium (1.6-2.6) mg/dL Total Bilirubin (0.0-1.0) mg/dL Direct Bilirubin (0.0-0.5) mg/dL AST (5-31) U/L ALT (0-31) U/L Alkaline Phosphatase (39-117) U/L Troponin I High Sens 5.8 (<3.5-17.0) ng/L B-Natriuretic Peptide 181 H (<100) pg/mL Total Protein (6.5-8.0) g/dL Albumin (3.5-5.0) g/dL Lipase (8-78) U/L Influenza Type A (PCR) (Negative) Influenza Type B (PCR) (Negative) RSV RNA Qual (PCR) (Negative) SARS-CoV-2 RNA (RT-PCR) (Negative) 10/14/22 10/14/22 Range/Units 18:20 21:04 WBC (4.8-10.8) X10*3/uL RBC (4.20-5.50) X10*6/uL Hgb (12.0-16.0) g/dl Hct (37.0-47.0) % MCV (80.0-98.0) fL MCH (27.0-33.0) pg MCHC (31.0-35.0) g/dl RDW (11.0-16.0) % Plt Count (160-400) X10*3/uL MPV (9.4-12.3) fL Immature Gran % (Auto) (0.0-0.4) % Neut % (Auto) (45-73) % Lymph % (Auto) (20-40) % Roosevelt % (Auto) (2-11) % Eos % (Auto) (0-4) % Baso % (Auto) (0-2) % Lymph # (Auto) (1.2-4.9) X10*3/uL Roosevelt # (Auto) (0.1-1.2) X10*3/uL Eos # (Auto) (0.0-0.4) X10*3/uL Baso # (Auto) (0.0-0.2) X10*3/uL Abs Immat Gran (auto) (0.00-0.03) X10*3/uL Absolute Neuts (auto) (2.0-8.3) x10*3/uL Absolute Nucleated RBC (0.0-0.012) X10*3/uL Nucleated RBC % (auto) (0.0-0.2) /100WBC PT (10.0-13.1) SEC INR (0.9-1.1) APTT (26.0-36.4) SEC Sodium 144 (135-145) mmol/L Potassium 4.7 D (3.3-5.1) mmol/L Chloride 103 (96-108) mmol/L Carbon Dioxide 27 (22-29) mmol/L Anion Gap 19 (12-20) BUN 42 H (9-16) mg/dL Creatinine 7.41 H* (0.5-1.4) mg/dL Estim Creat Clear Calc 6.0 Estimated GFR 5 Random Glucose 81 (60-115) mg/dL Calcium 8.4 D (8.4-10.2) mg/dL Magnesium (1.6-2.6) mg/dL Total Bilirubin (0.0-1.0) mg/dL Direct Bilirubin (0.0-0.5) mg/dL AST (5-31) U/L ALT (0-31) U/L Alkaline Phosphatase (39-117) U/L Troponin I High Sens (<3.5-17.0) ng/L B-Natriuretic Peptide (<100) pg/mL Total Protein (6.5-8.0) g/dL Albumin (3.5-5.0) g/dL Lipase (8-78) U/L Influenza Type A (PCR) NEGATIVE (Negative) Influenza Type B (PCR) NEGATIVE (Negative) RSV RNA Qual (PCR) NEGATIVE (Negative) SARS-CoV-2 RNA (RT-PCR) NEGATIVE (Negative) Independent Interpretation I performed an independent interpretation of an: EKG and Plain X-Ray Interpretation: Normal sinus rhythm Right bundle branch block Abnormal ECG When compared with ECG of 31-AUG-2022 23:10, Premature atrial complexes are no longer Present Vent. rate 92 BPM ID interval 198 ms QRS duration 108 ms QT/QTc 384/474 ms P-R-T axes 61 25 52 14-OCT-2022 17:38:54 Radiology Impression Discussion of test interpretation with radiology: I have reviewed the radiologist's reading. Radiologist Impression: EXAMINATION: XR CHEST CLINICAL INFORMATION: Chest pain COMPARISON: Chest 08/31/2022. TECHNIQUE: Frontal view of the chest was obtained. FINDINGS: The lungs are well-expanded and clear of acute process. The heart size and pulmonary vascularity is normal. There is mild dextro scoliosis of dorsal spine. No gross bony abnormality is seen. There are vascular stents seen within the left axilla and left upper extremity. XR/XR chest 1V IMPRESSION: No acute cardiopulmonary process seen. ? Discharge Plan Discharge Clinical Impression: Non-cardiac chest pain, Acute hyperkalemia Patient Disposition: Xfer SNF Instructions: Noncardiac Chest Pain (ED), Hyperkalemia (ED) Additional Instructions: You were evaluated for chest pain and elevated potassium levels. Your ACS workup was negative. Please follow-up with dialysis tomorrow. Thank you for choosing this emergency department for evaluation. Please follow-up with primary care physician as needed. Return to the emergency department for any new, concerning, or worsening symptoms. Prescriptions: No Action clonazepam 1 mg tablet 1 tab PO DAILY PRN (Reason: Anxiety) levothyroxine 100 mcg tablet 1 tab PO DAILY sevelamer carbonate [Renvela] 800 mg tablet 3 tab PO TID atorvastatin 40 mg tablet 1 tab PO DAILY polyethylene glycol 3350 17 gram Powder In Packet 17 g PO DAILY sumatriptan succinate [Imitrex] 25 mg tablet 1 tab PO DAILY lidocaine-prilocaine 2.5-2.5 % Cream 1 appl topical TUTHSA Rx Instructions: Apply to the left AV fistula site in the morning docusate sodium 100 mg Capsule 100 mg PO BID nystatin 100,000 unit/gram Powder 1 appl TOPICAL BID cholecalciferol (vitamin D3) [Vitamin D3] 25 mcg (1,000 unit) Capsule 25 mcg PO DAILY midodrine 10 mg tablet 1 tab PO TID aripiprazole 5 mg tablet 1 tab PO DAILY Eliquis 5 mg tablet 1 tab PO BID sodium polystyrene sulfonate 15 gram Powder In Packet 30 g PO MOWEFR Rx Instructions: days of dialysis acetaminophen 325 mg capsule 325 mg PO QID PRN (Reason: Pain) aspirin 81 mg tablet,delayed release (DR/EC) 81 mg PO DAILY bisacodyl 5 mg tablet,delayed release (DR/EC) 5 mg PO BEDTIME guaifenesin 200 mg/5 mL liquid 200 mg PO Q4H PRN (Reason: Cough) lidocaine [Lidoderm] 5 % adhesive patch,medicated 1 patch topical DAILY Rx Instructions: leave on most painful area for up to 12 hrs Narcan 4 mg/actuation spray,non-aerosol 4 mg intranasal Q3M PRN (Reason: overdose) Rx Instructions: spray 1 dose into ONE nostril; alternate nostrils w each dose until help arrives senna 8.6 mg capsule 8.6 mg PO BID PRN (Reason: Constipation) quetiapine [Seroquel] 25 mg tablet 75 mg PO BEDTIME diclofenac sodium 1 % gel 2 g topical QID Rx Instructions: apply to single elbow, wrist or hand; for hand includes palm/fingers/back of hand
--- NOTE | 2022-10-14 17:34 | ECG_ITS ---
Test Reason : CHEST PAIN Blood Pressure : / mmHG Vent. Rate : 092 BPM Atrial Rate : 092 BPM P-R Int : 198 ms QRS Dur : 108 ms QT Int : 384 ms P-R-T Axes : 061 025 052 degrees QTc Int : 474 ms Normal sinus rhythm Right bundle branch block Abnormal ECG When compared with ECG of 31-AUG-2022 23:10, Premature atrial complexes are no longer Present Referred By: Monica Hart Electronically Signed By:Andrae Salas
[2022-10-14 17:36] VITALS: BP 117/68; PULSE 78; O2SAT 98
[2022-10-14 17:49] VITALS: BP 121/76; PULSE 95; RESP 16; TEMP 36.6; O2SAT 97
--- NOTE | 2022-10-14 17:50 | MHC.EDTECH ---
PATIENT CAME IN VIA EMS ,PATIENT EKG DONE ,VITALS SIGN TAKEN AND PATIENT WAS ASSISTED IN CHANGING OVER INTO HOSPITAL ATTIRE .
[2022-10-14 18:25] LABS: MANUAL DIFF FLAG NO
[2022-10-14 18:27] LABS: Basophils Percent Auto 0.4 % (0-2); Eosinophils Absolute Auto 0.1 X10*3/uL (0.0-0.4); Eosinophils Percent Auto 1.6 % (0-4); Hematocrit 39.5 % (37.0-47.0); Imm Gran Abs Auto 0.01 X10*3/uL (0.00-0.03); Imm Gran Pct Auto 0.2 % (0.0-0.4); Lymphocytes Absolute Auto 1.4 X10*3/uL (1.2-4.9); Lymphocytes Percent Auto 25.1 % (20-40); Mean Corpuscular HGB Conc 30.4 g/dl (31.0-35.0); Mean Corpuscular Hemoglobin 32.7 pg (27.0-33.0); Mean Corpuscular Volume 107.6 fL (80.0-98.0); Mean Platelet Volume 9.6 fL (9.4-12.3); Monocytes Absolute Auto 0.5 X10*3/uL (0.1-1.2); Monocytes Percent Auto 9.2 % (2-11); Neutrophils Absolute Auto 3.5 x10*3/uL (2.0-8.3); Neutrophils Percent Auto 63.5 % (45-73); Platelet Count 116 X10*3/uL (160-400); Red Blood Count 3.67 X10*6/uL (4.20-5.50); Red Cell Distribution Width 16.9 % (11.0-16.0); White Blood Count 5.5 X10*3/uL (4.8-10.8)
[2022-10-14 18:32] LABS: INTERNATIONAL NORM RATIO 1.2 (0.9-1.1); Prothrombin Time 13.9 SEC (10.0-13.1)
[2022-10-14 18:35] VITALS: BMI 28.4
[2022-10-14 18:35] LABS: Partial Thromboplastin Time 33.6 SEC (26.0-36.4)
[2022-10-14 18:52] LABS: B Type Natriuretic Peptide 181 pg/mL (<100)
[2022-10-14 18:54] LABS: Alanine Aminotransferase 16 U/L (0-31); Alkaline Phosphatase 55 U/L (39-117); Anion Gap 17 (12-20); Aspartate Amino Transferase 17 U/L (5-31); Bilirubin Direct 0.2 mg/dL (0.0-0.5); Bilirubin Total 0.6 mg/dL (0.0-1.0); Blood Urea Nitrogen 41 mg/dL (9-16); Calcium 7.6 mg/dL (8.4-10.2); Carbon Dioxide 30 mmol/L (22-29); Chloride 102 mmol/L (96-108); Estimated Glomerular Filt Rate 5; Glucose Random 80 mg/dL (60-115); Lipase 90 U/L (8-78); Magnesium 2.4 mg/dL (1.6-2.6); Sodium 142 mmol/L (135-145); Total Protein 5.9 g/dL (6.5-8.0); Troponin-I High Sensitivity 5.8 ng/L (<3.5-17.0)
[2022-10-14 19:05] LABS: Influenza A PCR NEGATIVE (Negative); Influenza B PCR NEGATIVE (Negative); Resp Syncy Virus RNA Qual PCR NEGATIVE (Negative); SARS COV2 PCR INHOUSE NEGATIVE (Negative)
[2022-10-14] MEDS: Sodium Zirconium Cyclosilicate 10 GM POWD.PACK PO (19:15)
[2022-10-14] MEDS: Calcium Gluconate/NaCl,Iso-Osm 2 GM/100 ML PLAST..BAG IV (19:20)
[2022-10-14] MEDS: Dextrose 50 % 25 GM/50 ML SYRINGE IVPUSH (19:22)
[2022-10-14] MEDS: Insulin Regular, Human 100 UNIT/ML 3 ML VIAL IVPUSH (19:23)
[2022-10-14] MEDS: Albuterol Sulfate (0.083%) 2.5 MG/3 ML VIAL.NEB 5 MG INHALE (19:27)
[2022-10-14 19:30] VITALS: PULSE 71; RESP 18
--- NOTE | 2022-10-14 19:32 | PC.NURSE ---
Assumed care of pt. at 1900. Pt. lying in bed at this time, under no apparent distress. MEdictated PER MAR for high potassium levels. Unable to scan barcode for insulin as there is no sticker in the Pyxis. Pt. tolerated lokelma. Pt. now receiving albuterol treatment and calcium gluconate is running at 50mL/hour.
[2022-10-14 21:28] VITALS: BP 95/58; PULSE 106; RESP 19; O2SAT 95
[2022-10-14 21:45] LABS: Anion Gap 19 (12-20); Blood Urea Nitrogen 42 mg/dL (9-16); Calcium 8.4 mg/dL (8.4-10.2); Carbon Dioxide 27 mmol/L (22-29); Chloride 103 mmol/L (96-108); Estimated Glomerular Filt Rate 5; Glucose Random 81 mg/dL (60-115); Potassium 4.7 mmol/L (3.3-5.1); Sodium 144 mmol/L (135-145)
--- NOTE | 2022-10-14 23:16 | MHC.EDTECH ---
Ambulance booked to bring pt back to [place] [facility] @[id number], ETA one hour.
[2022-10-15] VITALS: BP 103/61; PULSE 100; RESP 18; O2SAT 99
== END 2022-10-15 00:25 | disposition skilled nursing facility (03) ==
PROVIDERS: Nurse Practitioner Family; Emergency Provider Internal Medicine
DX: R07.89 Other chest pain (principal); E87.5 Hyperkalemia; R06.02 Shortness of breath; Z20.822 Contact with and (suspected) exposure to COVID-19; Z20.828 Contact with and (suspected) exposure to other viral communicable diseases; Z79.899 Other long term (current) drug therapy
CPT/HCPCS: 0241U; 36415; 71045; 80048; 80076; 83690; 83735; 83880; 84484; 85025; 85610; 85730; 93005; 94640; 96374; 96375; 99284; 99285; J0611

== ENCOUNTER 2022-10-20 23:06 | Emergency (ER) | payer MEDICARE, MEDICAID, SELFPAY ==
--- NOTE | ~2022-10-20 | XR_ITS ---
EXAMINATION: XR CHEST CLINICAL INFORMATION: Chest pain. COMPARISON: None TECHNIQUE: Frontal portable view of the chest was obtained. 11:27 PM FINDINGS: Cardiac mediastinal contours are normal. Heart size is normal. No acute abnormality. Lungs normally aerated. No pleural effusion or pneumothorax. Vascular stents in left axilla. Osteosclerotic lesion left femoral head. Dextroscoliosis thoracic spine. XR/XR chest 1V IMPRESSION: No acute abnormality of the chest.
--- NOTE | 2022-10-20 23:26 | ECG_ITS ---
Test Reason : chest pain/abd pain Blood Pressure : / mmHG Vent. Rate : 070 BPM Atrial Rate : 070 BPM P-R Int : 178 ms QRS Dur : 104 ms QT Int : 448 ms P-R-T Axes : 063 034 054 degrees QTc Int : 483 ms Normal sinus rhythm Incomplete right bundle branch block Cannot rule out Anterior infarct , age undetermined Abnormal ECG When compared with ECG of 14-OCT-2022 17:38, No significant change was found Referred By: Sunni Rausch Electronically Signed By:KIMBERLEY PIERRE MD
--- NOTE | 2022-10-20 23:28 | ED_ITS ---
HPI - Chest Pain General Chief Complaint: General Medical Stated Complaint: chest and abd pain Time Seen by Provider: 10/20/22 23:24 History of Present Illness HPI narrative: Patient is a 67-year-old female history of end-stage renal disease history of resting tremor history of atrial fibrillation baseline on Eliquis presented today with having chest pain. The chest pain is mid chest. Associated with burning. Not associated with any worsening shortness of breath. No diaphoresis. Patient gets dialysis on Friday and Friday. Last dialysis was yesterday. There is no complications. Patient denies any pain on urination. Denies any abdominal pain. No fever no chills. The pain has been fairly constant all day. Related Data Home Medications Medication Instructions Recorded Confirmed clonazepam 1 mg tablet 1 tab PO DAILY PRN Anxiety 06/05/21 07/30/22 levothyroxine 100 mcg tablet 1 tab PO DAILY 06/05/21 07/30/22 sevelamer carbonate 800 mg tablet 3 tab PO TID 06/05/21 07/30/22 (Renvela) acetaminophen 325 mg capsule 325 mg PO QID PRN Pain 09/12/21 07/30/22 aspirin 81 mg tablet,delayed 81 mg PO DAILY 09/12/21 07/30/22 release bisacodyl 5 mg tablet,delayed 5 mg PO BEDTIME 09/12/21 07/30/22 release diclofenac sodium 1 % topical gel 2 g topical QID 09/12/21 07/30/22 guaifenesin 200 mg/5 mL oral liquid 200 mg PO Q4H PRN Cough 09/12/21 07/30/22 lidocaine 5 % topical patch 1 patch topical DAILY 09/12/21 07/30/22 (Lidoderm) naloxone 4 mg/actuation nasal 4 mg intranasal Q3M PRN overdose 09/12/21 07/30/22 spray (Narcan) quetiapine 25 mg tablet (Seroquel) 75 mg PO BEDTIME 09/12/21 07/30/22 sennosides 8.6 mg capsule (senna) 8.6 mg PO BID PRN Constipation 09/12/21 07/30/22 apixaban 5 mg tablet (Eliquis) 1 tab PO BID 07/30/22 07/30/22 aripiprazole 5 mg tablet 1 tab PO DAILY 07/30/22 07/30/22 atorvastatin 40 mg tablet 1 tab PO DAILY 07/30/22 07/30/22 cholecalciferol (vitamin D3) 25 25 mcg PO DAILY 07/30/22 07/30/22 mcg (1,000 unit) capsule (Vitamin D3) docusate sodium 100 mg capsule 100 mg PO BID 07/30/22 07/30/22 lidocaine-prilocaine 2.5 %-2.5 % 1 appl topical TUTHSA 07/30/22 07/30/22 topical cream midodrine 10 mg tablet 1 tab PO TID 07/30/22 07/30/22 nystatin 100,000 unit/gram topical 1 appl topical BID 07/30/22 07/30/22 powder polyethylene glycol 3350 17 gram 17 g PO DAILY 07/30/22 07/30/22 oral powder packet sodium polystyrene sulfonate 15 30 g PO MOWEFR 07/30/22 07/30/22 gram oral powder packet sumatriptan succinate 25 mg tablet 1 tab PO DAILY 07/30/22 07/30/22 (Imitrex) Allergies Allergy/AdvReac Type Severity Reaction Status Date / Time adhesive tape Allergy Unknown Verified 10/14/22 18:30 Penicillins [PCN] Allergy Unknown Verified 10/14/22 18:30 Sulfa (Sulfonamide Allergy Unknown Verified 10/14/22 18:30 Antibiotics) Review of Systems Review of Systems: Positive chest pain Yes all other systems are reviewed and are negative PMFSH Past Medical History Attestation statement: The following information was validated with the patient. Medical History Acute pneumothorax Afib Aggressive behavior Anemia Anemia, chronic renal failure Asthma AV fistula Bipolar 1 disorder Depression Dysphagia End stage chronic kidney disease GERD without esophagitis HTN (hypertension) Hyperlipidemia Hypothyroidism Interstitial pulmonary disease Osteoporosis Pleural effusion Pulmonary hypertension Pyelonephritis Social History Social History Alcohol intake: never Patient Tobacco Use Status: Never used Tobacco Smoked in Last 30 Days: No Use of substances other than those prescribed or required for medical reasons: No Advance Directives: Yes Advance Directives on File: Yes Advance Directives Date on File: 03/15/22 Physical Exam Vital Signs: Vital Signs: Last Vital Signs Temp 98.4 F 10/21/22 02:22 Pulse 67 10/21/22 02:22 Resp 13 10/21/22 02:22 BP 113/68 10/21/22 02:22 Pulse Ox 100 10/21/22 02:22 O2 Del Method 10/21/22 02:22 O2 Flow Rate 2 10/21/22 02:22 BMI result Body Mass Index 25.7 Appearance: Alert. Oriented X3. No acute distress. Eyes: Pupils equal, round and reactive to light. ENT: Pharynx normal. Neck: Normal inspection. Neck supple. No lymph nodes noted. No crepitus CVS: Normal heart rate and rhythm. Pulses normal. Normal S1 and S2 Respiratory: No respiratory distress. Breath sounds normal. No Wheezing. No rales Abdomen: Soft and nontender. No rigidity. No distention. good BS x4 Skin: Skin warm and dry. Normal skin color. Normal skin turgor. Extremities: No lower extremity edema. Neurovascular intact to all extremities. No Lacerations. No Rash Neuro: Oriented X 3. No motor deficit. No sensory deficit. Moving all extermities. No slurred speech Medical Decision Making Medical Decision Making [facility] Narrative: Patient is well-appearing. Complaining of nonspecific chest pain. Does have a history of end-stage renal disease. History of hypertension, history high cholesterol history atrial fibrillation on Eliquis. Patient's had nonspecific b urning pain to the chest. Not associated with any new shortness of breath or diaphoresis. Pain has been ongoing all day. Patient's troponin was less than 3.5. It was repeated an hour later also less than 3.5. No distress. Patient's chest x-ray showed no focal infiltrate. No evidence for pneumonia. My interpretation patient's EKG showed a sinus rhythm heart rate is 70 AL QRS QT within normal limits there is a partial right bundle branch block noted. She is in no distress will discharge back to the nursing. Patient is on blood thinner unlikely to have PE. Patient's creatinine elevated consistent with having end- stage renal disease. Differential Diagnosis Differential Diagnoses: The differential diagnosis associated with the presentation includes Chest pain, ACS, pneumonia, pneumothorax, PE Lab Data [facility] Lab Attestation statement: I reviewed the patient's lab results. 10/21/22 00:01 10/21/22 00:01 Labs: Lab Results 10/21/22 10/21/22 10/21/22 Range/Units 00:01 00:01 00:01 WBC 3.3 L (4.8-10.8) X10*3/uL RBC 3.50 L (4.20-5.50) X10*6/uL Hgb 11.2 L (12.0-16.0) g/dl Hct 36.7 L (37.0-47.0) % MCV 104.9 H (80.0-98.0) fL MCH 32.0 (27.0-33.0) pg MCHC 30.5 L (31.0-35.0) g/dl RDW 15.6 (11.0-16.0) % Plt Count 108 L (160-400) X10*3/uL MPV 9.0 L (9.4-12.3) fL Immature Gran % (Auto) 0.0 (0.0-0.4) % Neut % (Auto) 52.9 (45-73) % Lymph % (Auto) 34.3 (20-40) % Stoddard % (Auto) 11.0 (2-11) % Eos % (Auto) 1.5 (0-4) % Baso % (Auto) 0.3 (0-2) % Lymph # (Auto) 1.1 L (1.2-4.9) X10*3/uL Stoddard # (Auto) 0.4 (0.1-1.2) X10*3/uL Eos # (Auto) 0.1 (0.0-0.4) X10*3/uL Baso # (Auto) 0.0 (0.0-0.2) X10*3/uL Abs Immat Gran (auto) 0.00 (0.00-0.03) X10*3/uL Absolute Neuts (auto) 1.7 L (2.0-8.3) x10*3/uL Absolute Nucleated RBC 0.000 (0.0-0.012) X10*3/uL Nucleated RBC % (auto) 0.0 (0.0-0.2) /100WBC VBG pH (7.32-7.43) VBG pCO2 mmHg VBG pO2 mmHg VBG HCO3 (22-26) mmol/L VBG O2 Saturation % VBG Base Excess mmol/L Sodium 146 H (135-145) mmol/L Potassium 5.0 (3.3-5.1) mmol/L Chloride 101 (96-108) mmol/L Carbon Dioxide 30 H (22-29) mmol/L Anion Gap 20 (12-20) BUN 31 H (9-16) mg/dL Creatinine 5.92 H* (0.5-1.4) mg/dL Estim Creat Clear Calc 8.2 Estimated GFR 7 Random Glucose 73 (60-115) mg/dL Calcium 7.5 L D (8.4-10.2) mg/dL Phosphorus 5.7 H (2.7-4.5) mg/dL Magnesium 2.1 (1.6-2.6) mg/dL Troponin I High Sens < 3.5 (<3.5-17.0) ng/L 10/21/22 10/21/22 Range/Units 00:05 01:58 WBC (4.8-10.8) X10*3/uL RBC (4.20-5.50) X10*6/uL Hgb (12.0-16.0) g/dl Hct (37.0-47.0) % MCV (80.0-98.0) fL MCH (27.0-33.0) pg MCHC (31.0-35.0) g/dl RDW (11.0-16.0) % Plt Count (160-400) X10*3/uL MPV (9.4-12.3) fL Immature Gran % (Auto) (0.0-0.4) % Neut % (Auto) (45-73) % Lymph % (Auto) (20-40) % Stoddard % (Auto) (2-11) % Eos % (Auto) (0-4) % Baso % (Auto) (0-2) % Lymph # (Auto) (1.2-4.9) X10*3/uL Stoddard # (Auto) (0.1-1.2) X10*3/uL Eos # (Auto) (0.0-0.4) X10*3/uL Baso # (Auto) (0.0-0.2) X10*3/uL Abs Immat Gran (auto) (0.00-0.03) X10*3/uL Absolute Neuts (auto) (2.0-8.3) x10*3/uL Absolute Nucleated RBC (0.0-0.012) X10*3/uL Nucleated RBC % (auto) (0.0-0.2) /100WBC VBG pH 7.37 (7.32-7.43) VBG pCO2 64 mmHg VBG pO2 43 mmHg VBG HCO3 38 H (22-26) mmol/L VBG O2 Saturation 58.0 % VBG Base Excess 10.7 mmol/L Sodium (135-145) mmol/L Potassium (3.3-5.1) mmol/L Chloride (96-108) mmol/L Carbon Dioxide (22-29) mmol/L Anion Gap (12-20) BUN (9-16) mg/dL Creatinine (0.5-1.4) mg/dL Estim Creat Clear Calc Estimated GFR Random Glucose (60-115) mg/dL Calcium (8.4-10.2) mg/dL Phosphorus (2.7-4.5) mg/dL Magnesium (1.6-2.6) mg/dL Troponin I High Sens < 3.5 (<3.5-17.0) ng/L Independent Interpretation I performed an independent interpretation of an: EKG Interpretation: My interpretation patient's EKG is as above. Radiology Impression Discussion of test interpretation with radiology: I have reviewed the radiologist's reading. External Record Review External record reviewed: Inpatient record Discharge Plan Discharge Clinical Impression: Chest pain Patient Disposition: Home, Self-Care Instructions: Chest Pain (DC) Prescriptions: No Action clonazepam 1 mg tablet 1 tab PO DAILY PRN (Reason: Anxiety) levothyroxine 100 mcg tablet 1 tab PO DAILY sevelamer carbonate [Renvela] 800 mg tablet 3 tab PO TID atorvastatin 40 mg tablet 1 tab PO DAILY polyethylene glycol 3350 17 gram Powder In Packet 17 g PO DAILY sumatriptan succinate [Imitrex] 25 mg tablet 1 tab PO DAILY lidocaine-prilocaine 2.5-2.5 % Cream 1 appl topical TUTHSA Rx Instructions: Apply to the left AV fistula site in the morning docusate sodium 100 mg Capsule 100 mg PO BID nystatin 100,000 unit/gram Powder 1 appl TOPICAL BID cholecalciferol (vitamin D3) [Vitamin D3] 25 mcg (1,000 unit) Capsule 25 mcg PO DAILY midodrine 10 mg tablet 1 tab PO TID aripiprazole 5 mg tablet 1 tab PO DAILY Eliquis 5 mg tablet 1 tab PO BID sodium polystyrene sulfonate 15 gram Powder In Packet 30 g PO MOWEFR Rx Instructions: days of dialysis acetaminophen 325 mg capsule 325 mg PO QID PRN (Reason: Pain) aspirin 81 mg tablet,delayed release (DR/EC) 81 mg PO DAILY bisacodyl 5 mg tablet,delayed release (DR/EC) 5 mg PO BEDTIME guaifenesin 200 mg/5 mL liquid 200 mg PO Q4H PRN (Reason: Cough) lidocaine [Lidoderm] 5 % adhesive patch,medicated 1 patch topical DAILY Rx Instructions: leave on most painful area for up to 12 hrs Narcan 4 mg/actuation spray,non-aerosol 4 mg intranasal Q3M PRN (Reason: overdose) Rx Instructions: spray 1 dose into ONE nostril; alternate nostrils w each dose until help arrives senna 8.6 mg capsule 8.6 mg PO BID PRN (Reason: Constipation) quetiapine [Seroquel] 25 mg tablet 75 mg PO BEDTIME diclofenac sodium 1 % gel 2 g topical QID Rx Instructions: apply to single elbow, wrist or hand; for hand includes palm/fingers/back of hand Referrals: Hollie Warner MD [Primary Care Provider] - 10/23/22
[2022-10-20 23:29] VITALS: BP 84/40; PULSE 80; O2SAT 100
[2022-10-20 23:32] VITALS: BP 97/62; PULSE 81; RESP 15; TEMP 36.9; O2SAT 93
[2022-10-21 00:02] VITALS: BP 105/61; PULSE 69; RESP 16; TEMP 36.8; O2SAT 100; BMI 25.7
[2022-10-21 00:07] LABS: MANUAL DIFF FLAG NO
[2022-10-21 00:08] LABS: Basophils Percent Auto 0.3 % (0-2); Eosinophils Absolute Auto 0.1 X10*3/uL (0.0-0.4); Eosinophils Percent Auto 1.5 % (0-4); Hematocrit 36.7 % (37.0-47.0); Hemoglobin 11.2 g/dl (12.0-16.0); Lymphocytes Absolute Auto 1.1 X10*3/uL (1.2-4.9); Lymphocytes Percent Auto 34.3 % (20-40); Mean Corpuscular HGB Conc 30.5 g/dl (31.0-35.0); Mean Corpuscular Volume 104.9 fL (80.0-98.0); Monocytes Absolute Auto 0.4 X10*3/uL (0.1-1.2); Neutrophils Absolute Auto 1.7 x10*3/uL (2.0-8.3); Neutrophils Percent Auto 52.9 % (45-73); Platelet Count 108 X10*3/uL (160-400); Red Cell Distribution Width 15.6 % (11.0-16.0); White Blood Count 3.3 X10*3/uL (4.8-10.8)
[2022-10-21 00:11] LABS: Venous Blood Gas Refer to POC result
[2022-10-21 00:12] LABS: VBG Base Excess 10.7 mmol/L; VBG HCO3 38 mmol/L (22-26); VBG pCO2 64 mmHg; VBG pH 7.37 (7.32-7.43); VBG pO2 43 mmHg
[2022-10-21 00:29] LABS: Anion Gap 20 (12-20); Blood Urea Nitrogen 31 mg/dL (9-16); Calcium 7.5 mg/dL (8.4-10.2); Carbon Dioxide 30 mmol/L (22-29); Chloride 101 mmol/L (96-108); Creatinine Clr Calc Pharmacy 8.2; Estimated Glomerular Filt Rate 7; Glucose Random 73 mg/dL (60-115); Magnesium 2.1 mg/dL (1.6-2.6); Phosphorus 5.7 mg/dL (2.7-4.5); Sodium 146 mmol/L (135-145)
[2022-10-21 00:33] LABS: Troponin-I High Sensitivity < 3.5 ng/L (<3.5-17.0)
[2022-10-21 00:45] VITALS: BP 114/64; PULSE 67; RESP 16; TEMP 36.6; O2SAT 100
[2022-10-21 02:22] VITALS: BP 113/68; PULSE 67; RESP 13; TEMP 36.9; O2SAT 100
[2022-10-21 02:26] LABS: Troponin-I High Sensitivity < 3.5 ng/L (<3.5-17.0)
--- NOTE | 2022-10-21 03:30 | ED_ITS ---
HPI - General Adult General Chief complaint: General Medical Stated complaint: chest and abd pain Time Seen by Provider: 10/20/22 23:24 Related Data Home Medications Medication Instructions Recorded Confirmed clonazepam 1 mg tablet 1 tab PO DAILY PRN Anxiety 06/05/21 07/30/22 levothyroxine 100 mcg tablet 1 tab PO DAILY 06/05/21 07/30/22 sevelamer carbonate 800 mg tablet 3 tab PO TID 06/05/21 07/30/22 (Renvela) acetaminophen 325 mg capsule 325 mg PO QID PRN Pain 09/12/21 07/30/22 aspirin 81 mg tablet,delayed 81 mg PO DAILY 09/12/21 07/30/22 release bisacodyl 5 mg tablet,delayed 5 mg PO BEDTIME 09/12/21 07/30/22 release diclofenac sodium 1 % topical gel 2 g topical QID 09/12/21 07/30/22 guaifenesin 200 mg/5 mL oral liquid 200 mg PO Q4H PRN Cough 09/12/21 07/30/22 lidocaine 5 % topical patch 1 patch topical DAILY 09/12/21 07/30/22 (Lidoderm) naloxone 4 mg/actuation nasal 4 mg intranasal Q3M PRN overdose 09/12/21 07/30/22 spray (Narcan) quetiapine 25 mg tablet (Seroquel) 75 mg PO BEDTIME 09/12/21 07/30/22 sennosides 8.6 mg capsule (senna) 8.6 mg PO BID PRN Constipation 09/12/21 07/30/22 apixaban 5 mg tablet (Eliquis) 1 tab PO BID 07/30/22 07/30/22 aripiprazole 5 mg tablet 1 tab PO DAILY 07/30/22 07/30/22 atorvastatin 40 mg tablet 1 tab PO DAILY 07/30/22 07/30/22 cholecalciferol (vitamin D3) 25 25 mcg PO DAILY 07/30/22 07/30/22 mcg (1,000 unit) capsule (Vitamin D3) docusate sodium 100 mg capsule 100 mg PO BID 07/30/22 07/30/22 lidocaine-prilocaine 2.5 %-2.5 % 1 appl topical TUTHSA 07/30/22 07/30/22 topical cream midodrine 10 mg tablet 1 tab PO TID 07/30/22 07/30/22 nystatin 100,000 unit/gram topical 1 appl topical BID 07/30/22 07/30/22 powder polyethylene glycol 3350 17 gram 17 g PO DAILY 07/30/22 07/30/22 oral powder packet sodium polystyrene sulfonate 15 30 g PO MOWEFR 07/30/22 07/30/22 gram oral powder packet sumatriptan succinate 25 mg tablet 1 tab PO DAILY 07/30/22 07/30/22 (Imitrex) Allergies Allergy/AdvReac Type Severity Reaction Status Date / Time adhesive tape Allergy Unknown Verified 10/14/22 18:30 Penicillins [PCN] Allergy Unknown Verified 10/14/22 18:30 Sulfa (Sulfonamide Allergy Unknown Verified 10/14/22 18:30 Antibiotics) [facility] Past Medical History Medical History Acute pneumothorax Afib Aggressive behavior Anemia Anemia, chronic renal failure Asthma AV fistula Bipolar 1 disorder Depression Dysphagia End stage chronic kidney disease GERD without esophagitis HTN (hypertension) Hyperlipidemia Hypothyroidism Interstitial pulmonary disease Osteoporosis Pleural effusion Pulmonary hypertension Pyelonephritis Social History Social History Alcohol intake: never Patient Tobacco Use Status: Never used Tobacco Smoked in Last 30 Days: No Use of substances other than those prescribed or required for medical reasons: No Advance Directives: Yes Advance Directives on File: Yes Advance Directives Date on File: 03/15/22 Physical Exam ED Vital Signs: Vital Signs - 24 hr 10/20/22 23:32 10/21/22 00:02 10/21/22 00:45 Temperature 98.4 F 98.3 F 97.8 F Pulse Rate 81 69 67 Respiratory Rate 15 16 16 Blood Pressure 97/62 105/61 114/64 Pulse Oximetry 93 100 100 Oxygen Delivery Method Nasal Cannula Room Air Nasal Cannula Oxygen Flow Rate 2 2 10/21/22 02:22 Temperature 98.4 F Pulse Rate 67 Respiratory Rate 13 Blood Pressure 113/68 Pulse Oximetry 100 Oxygen Delivery Method Nasal Cannula Oxygen Flow Rate 2 BMI result Body Mass Index 25.7 Medical Decision Making Medical Decision Making MDM Narrative: Patient's chest pain atypical. History of end-stage renal disease. My interpretation of her EKG showed a sinus rhythm heart rate is 70 there is an incomplete right bundle branch block. ID QRS QT within normal limits there is no acute ST segment elevation noted. Patient's troponin x2 sets were negative. There is no evidence for Lab Data 10/21/22 00:01 10/21/22 00:01 Labs: Lab Results 10/21/22 10/21/22 10/21/22 Range/Units 00:01 00:01 00:01 WBC 3.3 L (4.8-10.8) X10*3/uL RBC 3.50 L (4.20-5.50) X10*6/uL Hgb 11.2 L (12.0-16.0) g/dl Hct 36.7 L (37.0-47.0) % MCV 104.9 H (80.0-98.0) fL MCH 32.0 (27.0-33.0) pg MCHC 30.5 L (31.0-35.0) g/dl RDW 15.6 (11.0-16.0) % Plt Count 108 L (160-400) X10*3/uL MPV 9.0 L (9.4-12.3) fL Immature Gran % (Auto) 0.0 (0.0-0.4) % Neut % (Auto) 52.9 (45-73) % Lymph % (Auto) 34.3 (20-40) % Russell % (Auto) 11.0 (2-11) % Eos % (Auto) 1.5 (0-4) % Baso % (Auto) 0.3 (0-2) % Lymph # (Auto) 1.1 L (1.2-4.9) X10*3/uL Russell # (Auto) 0.4 (0.1-1.2) X10*3/uL Eos # (Auto) 0.1 (0.0-0.4) X10*3/uL Baso # (Auto) 0.0 (0.0-0.2) X10*3/uL Abs Immat Gran (auto) 0.00 (0.00-0.03) X10*3/uL Absolute Neuts (auto) 1.7 L (2.0-8.3) x10*3/uL Absolute Nucleated RBC 0.000 (0.0-0.012) X10*3/uL Nucleated RBC % (auto) 0.0 (0.0-0.2) /100WBC VBG pH (7.32-7.43) VBG pCO2 mmHg VBG pO2 mmHg VBG HCO3 (22-26) mmol/L VBG O2 Saturation % VBG Base Excess mmol/L Sodium 146 H (135-145) mmol/L Potassium 5.0 (3.3-5.1) mmol/L Chloride 101 (96-108) mmol/L Carbon Dioxide 30 H (22-29) mmol/L Anion Gap 20 (12-20) BUN 31 H (9-16) mg/dL Creatinine 5.92 H* (0.5-1.4) mg/dL Estim Creat Clear Calc 8.2 Estimated GFR 7 Random Glucose 73 (60-115) mg/dL Calcium 7.5 L D (8.4-10.2) mg/dL Phosphorus 5.7 H (2.7-4.5) mg/dL Magnesium 2.1 (1.6-2.6) mg/dL Troponin I High Sens < 3.5 (<3.5-17.0) ng/L 10/21/22 10/21/22 Range/Units 00:05 01:58 WBC (4.8-10.8) X10*3/uL RBC (4.20-5.50) X10*6/uL Hgb (12.0-16.0) g/dl Hct (37.0-47.0) % MCV (80.0-98.0) fL MCH (27.0-33.0) pg MCHC (31.0-35.0) g/dl RDW (11.0-16.0) % Plt Count (160-400) X10*3/uL MPV (9.4-12.3) fL Immature Gran % (Auto) (0.0-0.4) % Neut % (Auto) (45-73) % Lymph % (Auto) (20-40) % Russell % (Auto) (2-11) % Eos % (Auto) (0-4) % Baso % (Auto) (0-2) % Lymph # (Auto) (1.2-4.9) X10*3/uL Russell # (Auto) (0.1-1.2) X10*3/uL Eos # (Auto) (0.0-0.4) X10*3/uL Baso # (Auto) (0.0-0.2) X10*3/uL Abs Immat Gran (auto) (0.00-0.03) X10*3/uL Absolute Neuts (auto) (2.0-8.3) x10*3/uL Absolute Nucleated RBC (0.0-0.012) X10*3/uL Nucleated RBC % (auto) (0.0-0.2) /100WBC VBG pH 7.37 (7.32-7.43) VBG pCO2 64 mmHg VBG pO2 43 mmHg VBG HCO3 38 H (22-26) mmol/L VBG O2 Saturation 58.0 % VBG Base Excess 10.7 mmol/L Sodium (135-145) mmol/L Potassium (3.3-5.1) mmol/L Chloride (96-108) mmol/L Carbon Dioxide (22-29) mmol/L Anion Gap (12-20) BUN (9-16) mg/dL Creatinine (0.5-1.4) mg/dL Estim Creat Clear Calc Estimated GFR Random Glucose (60-115) mg/dL Calcium (8.4-10.2) mg/dL Phosphorus (2.7-4.5) mg/dL Magnesium (1.6-2.6) mg/dL Troponin I High Sens < 3.5 (<3.5-17.0) ng/L Discharge Plan Discharge Clinical Impression: Chest pain Patient Disposition: Home, Self-Care Instructions: Chest Pain (DC) Prescriptions: No Action clonazepam 1 mg tablet 1 tab PO DAILY PRN (Reason: Anxiety) levothyroxine 100 mcg tablet 1 tab PO DAILY sevelamer carbonate [Renvela] 800 mg tablet 3 tab PO TID atorvastatin 40 mg tablet 1 tab PO DAILY polyethylene glycol 3350 17 gram Powder In Packet 17 g PO DAILY sumatriptan succinate [Imitrex] 25 mg tablet 1 tab PO DAILY lidocaine-prilocaine 2.5-2.5 % Cream 1 appl topical TUTHSA Rx Instructions: Apply to the left AV fistula site in the morning docusate sodium 100 mg Capsule 100 mg PO BID nystatin 100,000 unit/gram Powder 1 appl TOPICAL BID cholecalciferol (vitamin D3) [Vitamin D3] 25 mcg (1,000 unit) Capsule 25 mcg PO DAILY midodrine 10 mg tablet 1 tab PO TID aripiprazole 5 mg tablet 1 tab PO DAILY Eliquis 5 mg tablet 1 tab PO BID sodium polystyrene sulfonate 15 gram Powder In Packet 30 g PO MOWEFR Rx Instructions: days of dialysis acetaminophen 325 mg capsule 325 mg PO QID PRN (Reason: Pain) aspirin 81 mg tablet,delayed release (DR/EC) 81 mg PO DAILY bisacodyl 5 mg tablet,delayed release (DR/EC) 5 mg PO BEDTIME guaifenesin 200 mg/5 mL liquid 200 mg PO Q4H PRN (Reason: Cough) lidocaine [Lidoderm] 5 % adhesive patch,medicated 1 patch topical DAILY Rx Instructions: leave on most painful area for up to 12 hrs Narcan 4 mg/actuation spray,non-aerosol 4 mg intranasal Q3M PRN (Reason: overdose) Rx Instructions: spray 1 dose into ONE nostril; alternate nostrils w each dose until help arrives senna 8.6 mg capsule 8.6 mg PO BID PRN (Reason: Constipation) quetiapine [Seroquel] 25 mg tablet 75 mg PO BEDTIME diclofenac sodium 1 % gel 2 g topical QID Rx Instructions: apply to single elbow, wrist or hand; for hand includes palm/fingers/back of hand Referrals: Hollie Warner MD [Primary Care Provider] - 10/23/22
[2022-10-21 04:12] VITALS: BP 129/72; PULSE 69; RESP 18; O2SAT 97
--- NOTE | 2022-10-21 04:15 | PC.NURSE ---
Nurse to nurse report called to [facility], spoke to DEVAUGHN Vivar. Patient transported by [facility].
== END 2022-10-21 04:22 | disposition home or self-care (01) ==
PROVIDERS: Emergency Provider Emergency Medicine Emergency Medical Services; PCP Internal Medicine
DX: R07.89 Other chest pain (principal); I45.10 Unspecified right bundle-branch block; I12.0 Hypertensive chronic kidney disease with stage 5 chronic kidney disease or end stage renal disease; N18.6 End stage renal disease; Z99.2 Dependence on renal dialysis; D64.9 Anemia, unspecified; I48.91 Unspecified atrial fibrillation; E78.5 Hyperlipidemia, unspecified; Z79.01 Long term (current) use of anticoagulants; Z79.82 Long term (current) use of aspirin; Z79.899 Other long term (current) drug therapy
CPT/HCPCS: 36415; 71045; 80048; 82803; 83735; 84100; 84484; 85025; 93005; 99284